=== PATIENT | female | born 1955 | race Caucasian/White ===

== ENCOUNTER 2023-04-30 08:45 | Outpatient (OUT) | payer OTHER, SELFPAY ==
[2023-04-30 08:57] LABS: Basophils Percent Auto 0.5 % (0.2-2.0); Eosinophils Absolute Auto 0.3 10^3/uL (0.0-0.7); Eosinophils Percent Auto 3.8 % (0.9-7.0); Hematocrit 44.8 % (36.0-48.0); Hemoglobin 14.3 g/dL (12.0-16.0); Immature Granulocytes Abs Auto 0.02 10^3/uL (0.00-0.03); Immature Granulocytes Pct Auto 0.2 % (0.0-0.5); Lymphocytes Absolute Auto 2.2 10^3/uL (1.2-3.8); Lymphocytes Percent Auto 27.2 % (20.5-60.0); Mean Corpuscular HGB Conc 31.9 g/dL (29.9-35.2); Mean Platelet Volume 10.4 fL (9.5-13.5); Monocytes Absolute Auto 0.6 10^3/uL (0.3-0.8); Monocytes Percent Auto 7.8 % (1.7-12.0); Neutrophils Absolute Auto 4.9 10^3/uL (1.4-6.5); Neutrophils Percent Auto 60.5 % (43.0-75.0); Platelet Count 286 10^3/uL (150-450); Red Blood Count 4.62 10^6/uL (4.20-5.40); Red Cell Distribution Width 13.8 % (11.0-15.0); White Blood Count 8.1 10^3/uL (4.0-11.0)
--- NOTE | 2023-04-30 08:57 | MM_ITS ---
Patient Name: MIKE RIVERA MR#: [id number] : 1955 Exam Date: 04/30/2023 Ordering Doctor: DR Rob Jiménez D.O. RADIOLOGY REPORT PROCEDURE: MM TOMOSYNTHESIS SCREENING BI COMPARISON: MG MAMM SCREEN 3D PADMINI CAD, 09/05/2020. MG MAMM SCREEN 3D PADMINI CAD, 02/28/2022. INDICATIONS: Screening Calculator Name NCI Breast Cancer Risk Assessment Tool 5 Year Breast Cancer Risk 1.50% Lifetime Breast Cancer Risk 5.40% Personal Breast Cancer No Personal Ovarian Cancer No Treatments None Family Cancers Aunt-maternal with breast cancer at age 60; Aunt-maternal with breast cancer at age 60; Aunt-maternal with breast cancer at age 60; Grandmother-maternal with ovarian cancer at age 58; Grandfather-paternal with lung cancer at age 70. LOCATION: [facility] BREAST COMPOSITION: Heterogeneously dense,which may obscure small masses. FINDINGS: DIAGNOSTIC CATEGORY 1--NEGATIVE. NO CHANGE FROM COMPARISON ASSESSMENT. RIGHT BREAST: No significant suspicious finding. LEFT BREAST: No significant suspicious finding. RECOMMENDATIONS: ROUTINE MAMMOGRAM AND CLINICAL EVALUATION IN 12 MONTHS. PLEASE NOTE: A NORMAL MAMMOGRAM DOES NOT EXCLUDE THE POSSIBILITY OF BREAST CANCER. A CLINICALLY SUSPICIOUS PALPABLE LUMP SHOULD BE BIOPSIED. Dictated by: Merrick Tobar MD on 04/30/2023 at 09:57 Approved by: Merrick Tobar MD on 04/30/2023 at 10:14
--- NOTE | 2023-04-30 08:58 | XR_ITS ---
The [address] [address] Patient Name: MIKE RIVERA MRN: [id number] date: 1955 Sex: F Assigned Patient Location: LAB Current Patient Location: LAB Accession/Order Number: [id number] Exam Date: 04/30/2023 09:12 Report Date: 04/30/2023 09:43 At the request of: CHANDA SEGUNDO Procedure: XR chest 2V EXAM: XR chest 2V HISTORY: Chronic Cough R05.3 COMPARISON: None. TECHNIQUE: PA and lateral views of the chest. FINDINGS: The cardiomediastinal silhouette is normal. No focal consolidation is identified. There is no pneumothorax. No pleural effusion is noted. The osseous structures are intact. XR/XR chest 2V IMPRESSION: No acute cardiopulmonary process. Suggestion of COPD. Electronically authenticated by: DELFINA RILEY Date: 04/30/2023 09:43
[2023-04-30 09:28] LABS: Alanine Aminotransferase 20 U/L (14-59); Albumin Level 3.9 g/dL (3.4-5.0); Alkaline Phosphatase 63 U/L (46-116); Anion Gap 11.9; Aspartate Amino Transferase 15 U/L (15-37); BUN Creatinine Ratio 28.6; Bilirubin Total 0.4 mg/dL (0.2-1.0); Calcium 9.7 mg/dL (8.5-10.1); Carbon Dioxide 29.4 mmol/L (21.0-32.0); Chloride 104 mmol/L (98-107); Estimated GFR (African America >60 (>=60); Estimated GFR (Non-African Ame >60 (>=60); Globulin 3.8 g/dL; Glucose 109 mg/dL (74-106); Potassium 4.3 mmol/L (3.5-5.1); Sodium 141 mmol/L (136-145); Total Protein 7.7 g/dL (6.4-8.2)
--- OUTSIDE RECORDS SUMMARY | 2023-05-13 02:46 | XMS_ITS | CCD ---
Author Name Unknown Address [address] [place] [address] Organization [facility] Care Team Providers Care Glass Bender Name Role Phone ROB JIMÉNEZ Primary Care Physician [phone] SABIHA ., KENDALL Attending Unavailable SABIHA ., KENDALL Consulting Unavailable SABIHA ., KENDALL Admitting Unavailable TINO, DR ARMAS Primary Care Unavailable NILL ., DR MAZA Admitting Unavailable NILL ., DR MAZA Attending Unavailable NILL ., DR MAZA Consulting Unavailable TINO, DR ARMAS Primary Care Unavailable KATHY, HARRY Consulting Unavailable KUCHIPUDI, MANUEL Consulting Unavailable TINO, DR ARMAS Admitting Unavailable BALL, DR ARMAS Attending Unavailable BALL, DR ARMAS Consulting Unavailable BALL, DR ARMAS Primary Care Unavailable BALL, DR ARMAS Attending Unavailable BALL, DR ARMAS Consulting Unavailable BALL, DR ARMAS Primary Care Unavailable BALL, DR ARMAS Admitting Unavailable WEST, DR DALJIT Wong Consulting Unavailable NILL ., DR MAZA Admitting Unavailable NILL ., DR MAZA Attending Unavailable NILL ., DR MAZA Consulting Unavailable BALL, DR ARMAS Primary Care Unavailable Ball, Rob Unavailable PedersenOrly Unavailable NILL, Link York Attending Unavailable NILL, Link York Attending Unavailable BALL, ROB Referring Unavailable NILL, Link York Attending Unavailable NANCE, Nasir York Attending Unavailable NANCE, Nasir York Attending Unavailable NANCE, Nasir York Attending Unavailable NANCE, Nasir York Attending Unavailable NANCE, Nasir York Attending Unavailable NANCE, Nasir York Attending Unavailable NANCE, Nasir York Admitting Unavailable Allergies Allergy Classification Reported Allergen(s) Allergy Type Date of Onset Reaction(s) Facility (9 sources) Cefaclor; Translations: [cefaclor] Drug Allergy Joint swelling (finding), Cutaneous eruption (morphologic abnormality) [facility] (16 sources) Erythromycin; Translations: [erythromycin] Drug Allergy Joint swelling (finding), Cutaneous eruption (morphologic abnormality) [facility] (13 sources) Penicillin; Translations: [penicillin] Drug Allergy Cutaneous eruption (morphologic abnormality) [facility] (9 sources) Sulfonamides (Antibiotic); Translations: [sulfa drugs] Drug allergy Nausea and vomiting (disorder) [facility] (14 sources) NITROFURANTOIN, MACROCRYSTALS / Nitrofurantoin, Monohydrate; Translations: [nitrofurantoin] Drug Allergy Eruption of skin (disorder) [facility] go[facility] (5 sources) Cefaclor Drug Allergy 10-17-19 15 Unknown [facility] (1 source) Erythromycin Drug Allergy 10-17-19 15 [facility] (1 source) Nitrofurantoin Drug Allergy 04-03-20 22 [facility] (1 source) Penicillins Drug allergy (disorder) 10-17-19 15 [facility] (1 source) Sulfonamides (Antibiotic) Drug allergy (disorder) [facility] (7 sources) Cephalexin Drug Allergy Unknown [facility] Other (7 sources) Substance with sulfonamide structure and antibacterial mechanism of action (substance) Drug allergy Unknown [facility] Other (4 sources) Substance with penicillin structure and antibacterial mechanism of action (substance) Drug allergy Unknown [facility] Other (4 sources) Ceclor *CEPHALOSPORINS* Propensity to adverse reactions 11-17-19 15 Unknown [facility] Other (1 source) patient allergy list reviewed by nurse or physicia Propensity to adverse reactions 06-30-19 18 Comment:Done [facility] Other Medications Current Medications Medication Drug Class(es) Dates Sig (Normalized) Sig (Original) 0.4 ML cyclosporine 0.5 MG/ML Ophthalmic Suspension [Restasis] (2 sources) Start: 07-28-2022 Restasis 0.05% Emulsion Refill(s) 0 Start Date: 07/28/22 Status: Ordered amLODIPine 2.5 mg oral tablet (4 sources) Dihydropyridine Calcium Channel Yosef Start: 03-27-2023 take 1 tablet by mouth every twenty-four hours amLODIPine Besylate 2.5 MG 1 tablet Orally Once a day Mar, Active calcium carbonate 1500 mg oral tablet (3 sources) Start: 04-28-2022 take 1 mg by mouth once daily calcium (as carbonate) 600 mg oral tablet mg tab(s), Oral, Daily, Refills(s) 0 Start Date: 04/28/22 Status: Ordered cycloSPORINE 0.5 mg/ml ophthalmic suspension (3 sources) Calcineurin Inhibitor Immunosuppressant take 1 drop(s) into the eye(s) twice daily Restasis 0.05 % 1 drop into affected eye Ophthalmic Twice a day Active doxycycline hyclate 100 mg oral capsule (1 source) Tetracycline-class Drug Start: 07-28-2022 End: 08-07-2022 take 1 capsule by mouth twice daily doxycycline hyclate 100 mg Cap 100 mg = 1 cap(s), Oral, BID, X 10 day(s), # 20 cap(s), Refills(s) 0, Pharmacy: [facility], 167, cm, 07/28/22 15:34:00 EST, Height/Length Dosing, 63, kg, 07/28/22 15:34:00 EST, Weight Dosing Start Date: 07/28/22 Stop Date: 08/07/22 Status: Ordered escitalopram 10 mg oral tablet (1 source) Serotonin Reuptake Inhibitor Start: 02-21-2022 take 1 tablet by mouth at bedtime escitalopram 10 mg Tab 10 mg = 1 tab(s), Oral, Bedtime, Refills(s) 0 Start Date: 02/21/22 Status: Ordered Estrace Vaginal Cream (2 sources) Start: 01-10-2019 Estrace Vaginal Cream See Instructions, 1 gram Vaginal MWF, Refills(s) 0 Start Date: 01/10/19 Status: Ordered estradiol 0.1 mg/ml vaginal cream (6 sources) Estrogen Start: 09-20-2021 Estrace 0.1 mg/g Cream 1 gm, Vaginal, As Directed, 42.5 gm, Refill(s) 1, 3 times a week for a month at bedtime, then 2 times a week for maintenance, [facility], 167.6, cm, 09/18/21 13:22:00 EDT, Height/Length Dosing, 62.5, kg, 09/18/21 13:22:00 EDT, Weight Dosing Start Date: 09/20/21 Status: Ordered Start: 09-20-2021 Estrace 0.1 mg /g Cream 1 gm, Vaginal, As Directed, 42.5 gm, Refill(s) 1, 3 times a week for a month at bedtime, then 2 times a week for maintenance, [facility], 167.6, cm, 09/18/21 13:22:00 EDT, Height/Length Dosing, 62.5, kg, 09/18/21 13:22:00 EDT, Weight Dosing Start Date: 09/20/21 Status: Ordered estrogens, conjugated (jail) 0.625 mg/ml vaginal cream (3 sources) Estrogen Premarin 0.625 M G/GM three times weekly Vaginal Active Premarin 0.625 M G/GM three times weekly Vaginal Active Hyoscyamine / Methenamine / Methylene blue / phenyl salicylate / Sodium Phosphate, Monobasic (3 sources) Oxidation-Reduction Agent Start: 01-10-2019 Urelle 1 tab(s), Oral, Refill(s) 0, prn Start Date: 01/10/19 Status: Ordered levothyroxine sodium 0.05 mg oral tablet (9 sources) l-Thyroxine Start: 08-21-2022 take 1 tablet by mouth once daily in the morning Levothyroxine Sodium 50 MCG 1 tablet in the morning on an empty stomach1 Orally Once a day Jul, Active Start: 08-21-2022 take 1 tablet by cedric th once daily in the morning Levothyroxine Sodium 50 MCG 1 tablet in the morning on an empty stomach1 Orally Once a day Jul, Active Start: 07-28-2022 levothyroxine 50 mcg (0.05 mg) Tab Refills(s) 0 Start Date: 07/28/22 Status: Ordered losartan potassium 25 mg oral tablet (3 sources) Angiotensin 2 Receptor Yosef Start: 10-22-2022 take 1 tablet by mouth every twenty-four hours Losartan Potassium 25 MG 1 tablet Orally Once a day for 30 days September, Active Vitamin D 1000 intl units (25 mcg) Tab (3 sources) Start: 04-28-2022 take 1 tablet by mouth once daily Vitamin D 1000 intl units (25 mcg) Tab mcg tab(s), Oral, Daily, Refills(s) 0 Start Date: 04/28/22 Status: Ordered Problems Active Problems Problem Classification Problem Date Documented Date Episodic/Chronic Anxiety disorders (20 sources) Anxiety; Translations: [Generalized anxiety disorder] 01-10-2019 Chronic Chronic obstructive pulmonary disease and bronchiectasis (5 sources) Mucopurulent chronic bronchitis; Translations: [Mucopurulent chronic bronchitis] Chronic Coma; stupor; and brain damage (1 source) Somnolence; Translations: [Somnolence] Episodic Diabetes mellitus without complication (9 sources) Impaired fasting glycemia; Translations: [Impaired fasting glucose] Episodic Endometriosis (8 sources) Endometriosis, unspecified; Translations: [Endometriosis] Chronic Essential hypertension (11 sources) Essential hypertension; Translations: [Essential (primary) hypertension] Chronic Genitourinary symptoms and ill-defined conditions (4 sources) Stress incontinence (female) (male); Translations: [Genuine stress incontinence] Onset: 04-28-2022 Chronic Genitourinary symptoms and ill-defined conditions (20 sources) Incomplete emptying of bladder; Translations: [Retention of urine] Onset: 05-25-1957 09-18-2021 Episodic Headache; including migraine (5 sources) Migraine with aura; Translations: [Migraine with aura, not intractable, without status migrainosus] Chronic Headache; including migraine (1 source) Headache; Translations: [Headache, unspecified] Episodic Inflammatory diseases of female pelvic organs (1 source) Female pelvic peritoneal adhesions; Translations: [Female pelvic peritoneal adhesions (postinfective)] Episodic Malaise and fatigue (15 sources) Malaise; Translations: [Other malaise] Onset: 11-16-2014 Episodic Mood disorders (2 sources) Depression; Translations: [Dysthymia] Onset: 05-25-1959 Chronic Nonmalignant breast conditions (1 source) Fibrocystic disease of breast; Translations: [Diffuse cystic mastopathy of unspecified breast] Chronic Nutritional deficiencies (8 sources) Vitamin D deficiency; Translations: [Vitamin D deficiency, unspecified] Chronic Other circulatory disease (12 sources) Elevated blood-pressure reading without diagnosis of hypertension; Translations: [Elevated blood-pressure reading, without diagnosis of hypertension] 02-21-2022 Episodic Other diseases of bladder and urethra (4 sources) Neurogenic dysfunction of the urinary bladder; Translations: [Neuromuscular dysfunction of bladder, unspecified] Onset: 09-18-2021 Chronic Other diseases of bladder and urethra (8 sources) Neurogenic bladder 09-18-2021 Chronic Other diseases of bladder and urethra (1 source) Neuromuscular dysfunction of bladder, unspecified; Translations: [NEUROMUSCULR DYSFNCTION BLADDER UNS] Onset: 04-23-2022 Chronic Other female genital disorders (1 source) Dyspareunia; Translations: [Dyspareunia] Onset: 03-28-2008 Chronic Other hereditary and degenerative nervous system conditions (1 source) Cerebellar ataxia; Translations: [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 Other non-epithelial cancer of skin (8 sources) Squamous cell carcinoma; Translations: [Squamous cell carcinoma of skin, unspecified] Episodic Other non-traumatic joint disorders (8 sources) Shoulder joint pain; Translations: [Pain in left shoulder] Episodic Other screening for suspected conditions (not mental disorders or infectious disease) (19 sources) Screening for malignant neoplasm of colon done; Translations: [Encounter for screening for malignant neoplasm of colon] Onset: 03-03-2022 Episodic Other upper respiratory disease (4 sources) Epistaxis; Translations: [EPISTAXIS] Onset: 09-28-2022 Episodic Other upper respiratory infections (1 source) Acute sinusitis; Translations: [Acute sinusitis, unspecified] Episodic Residual codes; unclassified (1 source) Tobacco user; Translations: [Tobacco use] Episodic Spondylosis; intervertebral disc disorders; other back problems (9 sources) Lumbar spondylosis; Translations: [Spondylosis without myelopathy or radiculopathy, lumbar region] Chronic Substance-related disorders (19 sources) Smoker; Translations: [Nicotine dependence, cigarettes, uncomplicated] Onset: 05-25-1957 09-18-2021 Chronic Comment on above: Added secondary to d ocumentation in Social History. 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; Translations: [Other specified hypothyroidism] Chronic Unclassified (4 sources) Adhesion of pelvis 02-21-2022 Unclassified (4 sources) Body mass index 20-24 - normal 03-04-2022 Unclassified (4 sources) Patient encounter status 03-04-2022 Unclassified (1 source) CONTACT W/AND (SUSP) EXPOS COVID-19; Translations: [CONTACT W/AND (SUSP) EXPOS COVID-19] Onset: 04-08-2022 Urinary tract infections (14 sources) Chronic cystitis; Translations: [Other chronic cystitis without hematuria] Onset: 09-18-2021 Chronic Urinary tract infections (20 sources) Postinfective urethral stricture of female; Translations: [Postinfective urethral stricture, not elsewhere classified, female] Onset: 09-18-2021 Episodic Past or Other Problems Problem Classification Problem Date Documented Da te Episodic/Chronic Abdominal pain (2 sources) Abdominal pain; Translations: [Unspecified abdominal pain] Onset: 12-21-2013 Episodic Acute bronchitis (1 source) Acute bronchitis; Translations: [Acute bronchitis, unspecified] Onset: 02-13-2015 Episodic Lymphadenitis (1 source) Lymphadenopathy; Translations: [Enlargement of lymph nodes] Onset: 11-16-2014 Episodic Other circulatory disease (1 source) Elevated blood-pressure reading, without diagnosis of hypertension; Translations: [ELEVATED BP READING W/O DX HTN] Onset: 04-23-2022 Episodic Other circulatory disease (1 source) Non-neoplastic nevus; Translations: [Nevus, non-neoplastic] Onset: 01-10-2014 Episodic Other gastrointestinal disorders (1 source) Constipation; Translations: [Constipation, unspecified] Onset: 12-21-2013 Resolved: 08-21-2020 Episodic Other skin disorders (1 source) Mass in head or neck; Translations: [Swelling, mass, or lump in head and neck] Onset: 12-06-2013 Episodic Other skin disorders (1 source) Localized swelling, mass and lump, trunk; Translations: [Localized swelling, mass and lump, trunk] Onset: 11-16-2014 Episodic Residual codes; unclassified (1 source) Acquired absence of other specified parts of digestive tract; Translations: [ACQ ABSENCE OTH PART DIGESTV TRACT] Onset: 04-23-2022 Episodic Residual codes; unclassified (1 source) Acquired absence of both cervix and uterus; Translations: [ACQUIRED ABSENCE BOTH CERVIX AND UTERUS] Onset: 04-23-2022 Episodic Residual codes; unclassified (1 source) Family history of malignant neoplasm of breast; Translations: [FAMILY HX MALIG NEOPLASM OF BREAST] Onset: 03-03-2022 Episodic Residual codes; unclassified (1 source) Family history of malignant neoplasm of ovary; Translations: [FAM HX MALIGNANT NEOPLASM OVARY] Onset: 03-03-2022 Episodic Residual codes; unclassified (1 source) Family history of malignant neoplasm of trachea, bronchus and lung; Translations: [FAM HX MALIG NEOPLSM TRACH BRON LNG] Onset: 03-03-2022 Episodic Spondylosis; intervertebral disc disorders; other back problems (1 source) Low back pain; Translations: [Low back pain, unspecified] Onset: 06-30-2017 Episodic Unclassified (1 source) Chronic cough R05.3 Results Test Name Value Interpretation Reference Range Facil ity Consent for Procedure/Surger yon 08-12-2022 Consent for Procedure/Surgery [id number]:127 Normal [facility] Ambulatory Visit Summaryon 0 08-11-2022 Ambulatory Visit Summary MIKE RIVERA :1955 Visit Date:08/11/2022 Ambulatory Visit Instructions Your Diagnosis Postinfective urethral stricture of female Chronic cystitis Neurogenic bladder Tests Performed Urnls Dip Stick Auto w/o Microscopy POC [id number] Your Care Team Attending Physician - Nasir NANCE MD Primary Care Physician - TINO MCGUIRE, ROB This Is Your Medications List estradiol topical (Estrace 0.1 mg/g Cream) Contact prescribing physician if questions or concerns calcium carbonate (calcium (as carbonate) 600 mg oral tablet) cholecalciferol (Vitamin D 1000 intl units (25 mcg) Tab) cycloSPORINE ophthalmic (Restasis 0.05% Emulsion) levothyroxine (levothyroxine 50 mcg (0.05 mg) Tab) Procedures Performed Dilation of urethra (08/11/2022), Dilation of urethra (02/03/2022), UD - Urethral dilatation (01/10/2019), Colonoscopy (2005), EGD - Esophagogastroduodenoscopy (2005), Urodynamics (08/21/2003), Appendectomy, Bilateral salpingo-oophorectomy, Caesarean section, section, Cholecystectomy, Colonoscopy abnormal, Cystoscopy, dilation of uretheral stricture, Laparoscopy, Lysis of adhesions, skin cancer removal, LISA - Total abdominal hysterectomy. Discharge Vitals Heart Rate (Peripheral) 82 Respiratory Rate 16 Blood Pressure 132/89 Height 167 cm Height 66 in Weight 138 kg Weight 303.6 lb BMI 49.48 What to do next Scheduled Follow-Up Appointments Thursday 3:15 PM EDT With: CORNELIO GATES, Nasir York Where: [facility] Patient Educationon 08-12-19 Patient Education Urology Urethral Dilation Urethral dilation is a procedure to stretch open (dilate) the urethra. The urethra is the tube that drains urine from the bladder out of the body. In women, the urethra opens above the vaginal opening. In men, the urethra opens at the tip of the penis. Urethral dilation is usually done to treat narrowing of the urethra (urethral stricture), which can make it difficult to pass urine. Urethral dilation widens the urethra so that you can pass urine normally. Urethral dilation is done through the urethral opening. There are no incisions made during the procedure. Tell a health care provider about: ? Any allergies you have. ? All medicines you are taking, including vitamins, herbs, eye drops, creams, and oymy-nks-sqvzcpk medicines. ? Any problems you or family members have had with anesthetic medicines. ? Any blood disorders you have. ? Any surgeries you have had. ? Any medical conditions you have. ? Whether you are or may be . What are the risks? Generally, this is a safe procedure. However, problems may occur, including: ? Bleeding. ? Infection. ? A return of urethral stricture, which requires repeating the dilation procedure. ? Damage to the urethra, which may require reconstructive surgery. ? Allergic reactions to medicines. What happens before the procedure? Medicines Ask your health care provider about: ? Changing or stopping your regular medicines. This is especially important if you are taking diabetes medicines or blood thinners. ? Taking medicines such as aspirin and ibuprofen. These medicines can thin your blood. Do not take these medicines unless your health care provider tells you to take them. ? Taking mzkv-gjc-jkawbvg medicines, vitamins, herbs, and supplements. General instructions ? Follow instructions from your health care provider about eating or drinking restrictions. ? Plan to have someone take you home from the hospital or clinic. ? If you will be going home right after the procedure, plan to have someone with you for 24 hours. ? Ask your health care provider what steps will be taken to help prevent infection. These may include: ? Washing skin with a germ-killing soap. ? Taking antibiotic medicine. What happens during the procedure? ? An IV may be inserted into one of your veins. ? You will be given one or more of the following medicines: ? A local anesthetic to numb your urethral opening. This will be applied as a gel that will also lubricate the urethral opening. ? A sedative to help you relax. ? A thin tube with a light and camera on the end (cystoscope) will be inserted into your urethra. ? Your urethra will be rinsed (irrigated) with a germ-free (sterile) water solution. ? Narrow parts of your urethra will be stretched open using a dilator tool. Your surgeon will start with a very thin dilator, then use wider dilators as needed. ? A thin tube with an inflatable balloon on the tip may be inserted into your urethra. The balloon may be inflated to help stretch your urethra open. ? Your urethra will be irrigated. The procedure may vary among health care providers and hospitals. What can I expect after the procedure? ? After the procedure, it is common to have: ? Burning pain when urinating. ? Blood in your urine. ? A need to urinate frequently. ? You will be asked to urinate before you leave the hospital or clinic. ? Your urine flow should improve within a few days. Follow these instructions at home: Medicines ? Take rwko-zcm-oyynaap and prescription medicines only as told by your health care provider. ? If you were prescribed an antibiotic medicine, take it as told by your health care provider. Do not stop taking the antibiotic even if you start to feel better. ? Ask your health care provider if the medicine prescribed to you: ? Requires you to avoid driving or using heavy machinery. ? Can cause constipation. You may need to take these actions to prevent or treat constipation: ? Take tbmx-txf-hkbhoqp or prescription medicines. ? Eat foods that are high in fiber, such as beans, whole grains, and fresh fruits and vegetables. ? Limit foods that are high in fat and processed sugars, such as fried or sweet foods. General instructions ? Do not drive for 24 hours if you were given a sedative during your procedure. ? If you were sent home with a small, lubricated tube (catheter) to help keep your urethra open, follow your health care provider's instructions about how and when to use it. ? Drink enough fluid to keep your urine pale yellow. ? Return to your normal activities as told by your health care provider. Ask your health care provider what activities are safe for you. ? Keep all follow-up visits as told by your health care provider. This is important. Contact a health care provider if: ? Your urine is cloudy and smells bad. ? You develop new bleeding when you urinate. ? You pa (more content not included)... [facility] Office/Clinic Noteon 08-11-2022 Urology Office/Clinic Note Chief Complaint urethral strictures HPI Staff Pt is here today for IO UD due to urethral stricture. UD was originally scheduled for 07/28/22, however at time of encounter, pt had urinary symptoms. C&S did come back + and was Tx'd with Keflex therapy. Additional DX: Chronic Cystitis, Nocturia, Gross Hematuria and Stress Incontinence. *Estrace Cream therapy. CIC 3-4x/day. History of Present Illness Tests reviewed: reviewed UA. I have reviewed the previous health record information and history for this patient from Dr. Nance. I have reviewed and verified the staff HPI to be accurate for this encounter. There have been no associated fever, chills, flank pain, or blood in the urine. Denies any urinary infections since last encounter. Review of Systems PHQ Score Initial Depression Screen Score: 0 ROS - Provider Constitutional: denies weight loss, denies hot flashes. Eyes: denies eye problems. Gastrointestinal: denies nausea, denies vomiting. Cardiovascular: denies chest pain or angina. Integumentary: no dryness Musculoskeletal: denies musculoskeletal symptoms. ENMT: denies otolaryngeal symptoms. Respiratory: no shortness of breath. Heme/Lymph: denies easy bleeding tendency, denies easy bruising tendency. Psychiatric: no confusion, no anxiety. Genitourinary: See HPI. Physical Exam Vitals & Measurements HR: 82(Peripheral) RR: 16 BP: 132/89 HT: 66 in HT: 167 cm WT: 138 kg WT: 303.6 lb BMI: 49.48 General Appearance: alert , no acute distress, well nourished, well developed female. Genitourinary: bladder nonpalpable, no flank pain. Assessment/Plan 1. 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 Pt had IO UD today without complications. Operative Information Anesthesia Type: Local Procedure: Local Urethral Dilation Complications: None Surgical risks, benefits, details of the procedure have been explained to the patient. Full informed consent has been obtained. Intraoperative Information Prepped: Patient is brought back to the endoscopy suite. Patient is placed in modified dorso/lithotomy position. Patient prepped in the usual fashion with Betadine solution. 2% Xylocaine Jelly is placed per Urethra. The Urethra is: Tight The Urethra was dilated to: 20-30 Green[place]ic with sounds. Specimens Removed: None- Postoperative Information Patient is discharged home. Follow up arranged. Follow up 3 mos for UD or sooner if needed. Pt understands and agrees with plan. 2. Chronic cystitis (N30.20: Other chronic cystitis without hematuria) UCx 07/28/22 - E. coli. Pt completed Doxycycline 100 mg BID x 10 days course. UA today shows trace-intact blood, neg for infection. Pt continues using Estradiol 2x/week. -cont Estradiol 3. Neurogenic bladder (N31.9: Neuromuscular dysfunction of bladder, unspecified) Pt does CIC 3-4x/day. Follow-up With When Contact Information CORNELIO GATES, Nasir York, URL [facility] [address], [place] [address]- Additional Instructions: 3 mos UD Patient Education Urethral Dilation Isabel Mane, personally scribed for Dr. Nance on 08/11/2022 12:43:16. . Documentation recorded by the scribeIsabel, accurately reflects the services(s) I performed and decisions made by me. Authenticated by Dr. Nance on 08/11/2022 12:46:39. Problem List/Past Medical History Ongoing Anxiety Blood pressure elevated without history of HTN BMI 22.0-22.9, adult Chronic cystitis CORTNEY (generalized anxiety disorder) Gross hematuria Incomplete bladder emptying Neurogenic bladder Nocturia Pelvic adhesions Postinfective urethral stricture of female Screening for malignant neoplasm of colon Smoker Stress incontinence Urinary retention Weak urinary stream Historical No qualifying data Procedure/Surgical History Dilation of urethra (08/11/2022), Dilation of urethra (02/03/2022), UD - Urethral dilatation (01/10/2019), Colonoscopy (2005), EGD - Esophagogastroduodenoscopy (2005), Urodynamics (08/21/2003), Appendectomy, Bilateral salpingo-oophorectomy, Caesarean section, section, Cholecystectomy, Colonoscopy abnormal, Cystoscopy, dilation of uretheral stricture, Laparoscopy, Lysis of adhesions, skin cancer removal, LISA - Total abdominal hysterectomy. Medications calcium (as carbonate) 600 mg oral tablet, Oral, Daily Estrace 0.1 mg/g Cream, 1 gm, Vaginal, As Directed, 1 refills levothyroxine 50 mcg (0.05 mg) Tab Restasis 0.05% Emulsion Vitamin D 1000 intl units (25 mcg) Tab, Oral, Daily Allergies Macrobid (Rash) cefaclor (Joint swelling, Rash) erythromycin (Joint swelling, Rash) penicillin (Rash) sulfa drugs (Nausea and vomiting) Social History Alcohol Current, Beer, Daily, 01/10/2019 Substance Abuse - Denies Substance Abuse, 03/04/2022 Tobacco 10 or more cigarett (more content not included)... Normal [facility] Comment on above: Result Comment: Elec tronically Signed By: Nasir NANCE MD\.br\Date and Time Signed: 08/11/22 12:46 EDT\.br\Electronically Co-Signed By: Isabel Greenberg\.br\Date and Time Co-Signed: 08/11/22 12:43 EDT Coding Summary.on 08-02-2022 Coding Summary. [id number] [file] [id number] (more content not included)... Normal [facility] C Urineon 07-30-2022 Bacteria identified Cx Nom (U) Microbiology PROCEDURE: Urine Culture [R1] SOURCE: U Random BODY SITE: COLLECTED DATE/TIME: 07/28/2022 15:38 EST RECEIVED DATE/TIME: 07/28/2022 17:53 EST START DATE/TIME: 07/28/2022 17:53 EST FREE TEXT SOURCE: CORNELIO GATES, Nasir NANCE MD, Nasir York FINAL REPORTS Final Report [] Verified Date/Time: 07/30/2022 09:58 EST >100,000 cfu/ml Escherichia coli <10,000 cfu/ml Mixed skin contaminants SUSCEPTIBILITY RESULTS LEGEND: S=Susceptible, N/R=Not Reported, Blank=Data not available, or drug not advisable or tested, I=Intermediate, ESBL=Extended spectrum beta-lactamase, R=Resistant, TFG=Thymidine-dependent strain, CAROLYN=Beta- lactamase positive, JUAN JOSÉ=mcg/m;(mg/L), S*=Predicted susceptible interp, R*=Predicted resistant interp EC Antibiotic JUAN JOSÉ Dilutn JUAN JOSÉ Interp Amikacin <=16 S Ampicillin <=8 S Ampicillin/ <=8/4 S Sulbactam Aztreonam <=4 S Cefazolin <=2 S Cefepime <=2 S Cefoxitin <=8 S Ceftazidime <=1 S Ceftazidime/ <=8 S Avibactam Ceftriaxone <=1 S Ciprofloxacin <=1 S Ertapenem <=0.5 S Gentamicin <=4 S Levofloxacin <=2 S Meropenem <=1 S Nitrofurantoin <=32 S Piperacillin/ <=16 S Tazobactam Tetracycline <=4 S Tigecycline <=2 S Tobramycin <=4 S Trimethoprim/ <=2/38 S Sulfa Performing Locations R1: This test was performed at: [facility], [address] [place] [address], [id number] , [place], Normal [facility] Comment on above: Performed By: #### 2 [id number] ####[facility] [address] [place] [address] Ambulatory Visit Summaryon 0 07-28-2022 Ambulatory Visit Summary MIKE RIVERA :1955 Visit Date:07/28/2022 Ambulatory Visit Instructions Your Diagnosis Postinfective urethral stricture of female Chronic cystitis Neurogenic bladder Tests Performed Urnls Dip Stick Auto w/o Microscopy POC 94304 Your Care Team Attending Physician - Nasir NANCE MD Primary Care Physician - ROB JIMÉNEZ DO This Is Your Medications List doxycycline (doxycycline hyclate 100 mg Cap) estradiol topical (Estrace 0.1 mg/g Cream) Contact prescribing physician if questions or concerns calcium carbonate (calcium (as carbonate) 600 mg oral tablet) cholecalciferol (Vitamin D 1000 intl units (25 mcg) Tab) cycloSPORINE ophthalmic (Restasis 0.05% Emulsion) levothyroxine (levothyroxine 50 mcg (0.05 mg) Tab) Procedures Performed Dilation of urethra (02/03/2022), UD - Urethral dilatation (01/10/2019), Colonoscopy (2005), EGD - Esophagogastroduodenoscopy (2005), Urodynamics (08/21/2003), Appendectomy, Bilateral salpingo-oophorectomy, Caesarean section, section, Cholecystectomy, Colonoscopy abnormal, Cystoscopy, dilation of uretheral stricture, Laparoscopy, Lysis of adhesions, skin cancer removal, LISA - Total abdominal hysterectomy. Discharge Vitals Height 167 cm Height 66 in Weight 63 kg Weight 138.6 lb BMI 22.59 What to do next Scheduled Follow-Up Appointments Thursday 11:45 AM EDT With: CORNELIO GATES, Nasir York Where: [facility] Leonora Townsend [facility] Patient Educationon 07-29-19 23 Patient Education Urology Urethral Dilation Urethral dilation is a procedure to stretch open (dilate) the urethra. The urethra is the tube that drains urine from the bladder out of the body. In women, the urethra opens above the vaginal opening. In men, the urethra opens at the tip of the penis. Urethral dilation is usually done to treat narrowing of the urethra (urethral stricture), which can make it difficult to pass urine. Urethral dilation widens the urethra so that you can pass urine normally. Urethral dilation is done through the urethral opening. There are no incisions made during the procedure. Tell a health care provider about: ? Any allergies you have. ? All medicines you are taking, including vitamins, herbs, eye drops, creams, and cvwi-crv-zizzwbm medicines. ? Any problems you or family members have had with anesthetic medicines. ? Any blood disorders you have. ? Any surgeries you have had. ? Any medical conditions you have. ? Whether you are or may be . What are the risks? Generally, this is a safe procedure. However, problems may occur, including: ? Bleeding. ? Infection. ? A return of urethral stricture, which requires repeating the dilation procedure. ? Damage to the urethra, which may require reconstructive surgery. ? Allergic reactions to medicines. What happens before the procedure? Medicines Ask your health care provider about: ? Changing or stopping your regular medicines. This is especially important if you are taking diabetes medicines or blood thinners. ? Taking medicines such as aspirin and ibuprofen. These medicines can thin your blood. Do not take these medicines unless your health care provider tells you to take them. ? Taking xaeo-eny-phcjzpa medicines, vitamins, herbs, and supplements. General instructions ? Follow instructions from your health care provider about eating or drinking restrictions. ? Plan to have someone take you home from the hospital or clinic. ? If you will be going home right after the procedure, plan to have someone with you for 24 hours. ? Ask your health care provider what steps will be taken to help prevent infection. These may include: ? Washing skin with a germ-killing soap. ? Taking antibiotic medicine. What happens during the procedure? ? An IV may be inserted into one of your veins. ? You will be given one or more of the following medicines: ? A local anesthetic to numb your urethral opening. This will be applied as a gel that will also lubricate the urethral opening. ? A sedative to help you relax. ? A thin tube with a light and camera on the end (cystoscope) will be inserted into your urethra. ? Your urethra will be rinsed (irrigated) with a germ-free (sterile) water solution. ? Narrow parts of your urethra will be stretched open using a dilator tool. Your surgeon will start with a very thin dilator, then use wider dilators as needed. ? A thin tube with an inflatable balloon on the tip may be inserted into your urethra. The balloon may be inflated to help stretch your urethra open. ? Your urethra will be irrigated. The procedure may vary among health care providers and hospitals. What can I expect after the procedure? ? After the procedure, it is common to have: ? Burning pain when urinating. ? Blood in your urine. ? A need to urinate frequently. ? You will be asked to urinate before you leave the hospital or clinic. ? Your urine flow should improve within a few days. Follow these instructions at home: Medicines ? Take vxaf-fza-vsnjpzz and prescription medicines only as told by your health care provider. ? If you were prescribed an antibiotic medicine, take it as told by your health care provider. Do not stop taking the antibiotic even if you start to feel better. ? Ask your health care provider if the medicine prescribed to you: ? Requires you to avoid driving or using heavy machinery. ? Can cause constipation. You may need to take these actions to prevent or treat constipation: ? Take voku-npb-haipgmn or prescription medicines. ? Eat foods that are high in fiber, such as beans, whole grains, and fresh fruits and vegetables. ? Limit foods that are high in fat and processed sugars, such as fried or sweet foods. General instructions ? Do not drive for 24 hours if you were given a sedative during your procedure. ? If you were sent home with a small, lubricated tube (catheter) to help keep your urethra open, follow your health care provider's instructions about how and when to use it. ? Drink enough fluid to keep your urine pale yellow. ? Return to your normal activities as told by your health care provider. Ask your health care provider what activities are safe for you. ? Keep all follow-up visits as told by your health care provider. This is important. Contact a health care provider if: ? Your urine is cloudy and smells bad. ? You develop new bleeding when you urinate. ? You pa (more content not included)... Normal [facility] Urology Office/Clinic Noteon 07-28-2022 Urology Office/Clinic Note Chief Complaint 3m UD HPI Staff Pt is here today for 3m UD for Tx of Urethral Stricture. Additional DX: Chronic Cystitis, Nocturia, Gross Hematuria and Stress Incontinence. *Estrace Cream therapy. CIC 3-4x/day. Pt thinks she is infected. Increased frequency, urgency, odor and burning for the past few weeks. History of Present Illness Tests reviewed: reviewed UA. I have reviewed the previous health record information and history for this patient from Dr. Nance. I have reviewed and verified the staff HPI to be accurate for this encounter. There have been no associated fever, chills, flank pain, or blood in the urine. Denies any urinary infections since last encounter. Review of Systems PHQ Score Initial Depression Screen Score: 0 ROS - Provider Constitutional: denies weight loss, denies hot flashes. Eyes: denies eye problems. Gastrointestinal: denies nausea, denies vomiting. Cardiovascular: denies chest pain or angina. Integumentary: no dryness Musculoskeletal: denies musculoskeletal symptoms. ENMT: denies otolaryngeal symptoms. Respiratory: no shortness of breath. Heme/Lymph: denies easy bleeding tendency, denies easy bruising tendency. Psychiatric: no confusion, no anxiety. Genitourinary: See HPI. Physical Exam Vitals & Measurements HT: 66 in HT: 167 cm WT: 63 kg WT: 138.6 lb BMI: 22.59 General Appearance: alert , no acute distress, well nourished, well developed female. Genitourinary: bladder nonpalpable, no flank pain. Assessment/Plan 1. Postinfective urethral stricture of female (N35.12: Postinfective urethral stricture, not elsewhere classified, female) Last UD done 04/28/22: Tight urethra, dilated 20-30 Fr. UA today shows + nitrites and small leuks. Pt is symptomatic (increased frequency, urgency, odor, and burning for the past few weeks), will not proceed with UD today. Follow up 2 weeks for UD or sooner if needed. Pt understands and agrees with plan. 2. Chronic cystitis (N30.20: Other chronic cystitis without hematuria) Pt continues using Estradiol 2x/week. UA today shows + nitrites and small leuks. Pt is symptomatic (increased frequency, urgency, odor, and burning for the past few weeks), will not proceed with UD today. Pt has many allergies, to try Doxycycline 100 mg BID x 10 days. Rx sent to [facility]. -will send urine for cx -cont Estradiol 3. Neurogenic bladder (N31.9: Neuromuscular dysfunction of bladder, unspecified) Pt does CIC 3-4x/day. Follow-up With When Contact Information CORNELIO GATES, Nasir York, URL [facility] [address], [place] [address]- Additional Instructions: 2 weeks for UD Patient Education Urethral Dilation I, Isabel Greenberg, personally scribed for Dr. Nance on 07/28/2022 15:51:53. . Documentation recorded by the scribe, Isabel Greenberg, accurately reflects the services(s) I performed and decisions made by me. Authenticated by Dr. Nance on 07/28/2022 15:54:43. Problem List/Past Medical History Ongoing Anxiety Blood pressure elevated without history of HTN BMI 22.0-22.9, adult Chronic cystitis CORTNEY (generalized anxiety disorder) Gross hematuria Incomplete bladder emptying Neurogenic bladder Nocturia Pelvic adhesions Postinfective urethral stricture of female Screening for malignant neoplasm of colon Smoker Stress incontinence Urinary retention Weak urinary stream Historical No qualifying data Procedure/Surgical History Dilation of urethra (02/03/2022), UD - Urethral dilatation (01/10/2019), Colonoscopy (2005), EGD - Esophagogastroduodenoscopy (2005), Urodynamics (08/21/2003), Appendectomy, Bilateral salpingo-oophorectomy, Caesarean section, section, Cholecystectomy, Colonoscopy abnormal, Cystoscopy, dilation of uretheral stricture, Laparoscopy, Lysis of adhesions, skin cancer removal, LISA - Total abdominal hysterectomy. Medications calcium (as carbonate) 600 mg oral tablet, Oral, Daily Estrace 0.1 mg/g Cream, 1 gm, Vaginal, As Directed, 1 refills levothyroxine 50 mcg (0.05 mg) Tab Restasis 0.05% Emulsion Vitamin D 1000 intl units (25 mcg) Tab, Oral, Daily Allergies Macrobid (Rash) cefaclor (Joint swelling, Rash) erythromycin (Joint swelling, Rash) penicillin (Rash) sulfa drugs (Nausea and vomiting) Social History Alcohol Current, Beer, Daily, 01/10/2019 Substance Abuse - Denies Substance Abuse, 03/04/2022 Tobacco 10 or more cigarettes (1/2 pack or more)/day in last 30 days, Smoker, current status unknown Tobacco Use:. Never Smokeless Tobacco Use:. Cigarettes, 0.75 per day. Started age 18.0 Years. Yes, 07/28/2022 Family History Acute myocardial infarction: Father. Diabetes mellitus type 2: Mother. Hyperlipidemia: Sister and Brother. Hypertension: Mother, Father, Sister and Brother. Immunizations Vaccine Date Status Comments SARS-CoV-2 (COVID-19) Ad26 vaccine 05/13/2021 Recorded 2022-07-28: [id number] (more content not included)... [facility] Comment on above: Result Comment: Elec tronically Signed By: Nasir NANCE MD R\.br\Date and Time Signed: 07/28/22 15:54 EST\.br\Electronically Co-Signed By: Isabel Greenberg\.br\Date and Time Co-Signed: 07/28/22 15:52 EST T3, TOTAL (TRIIODOTHYRONINE) on 05-23-2022 T3, TOTAL 85 ng/dL Normal 71-180 [facility] Comment on above: Performed By: #### T 3TOTAL #### [facility] [address] [address] [address] Ivana Gotti FREE T4on 05-22-2022 Free T4 [Mass/Vol] 0.69 ng/dL Critically low 0.76-1.46 Th e [facility] Comment on above: Performed By: #### F T4 #### [facility] [id number] Ivana Gotti TSHon 12-29-2022 TSH 4.342 uIU/mL Critically high 0.358-3.740 [facility] Comment on above: Performed By: #### T #### [facility] [address] [address] [address] Ivana Gotti Consent for Procedure/Surger yon 04-29-2022 Consent for Procedure/Surgery [id number] Normal [facility] Ambulatory Visit Summaryon 1 06-29-2021 Ambulatory Visit Summary MIKE RIVERA :1955 Visit Date:04/28/2022 Ambulatory Visit Instructions Your Diagnosis Postinfective urethral stricture of female Chronic cystitis Nocturia Stress incontinence Gross hematuria Tests Performed Urnls Dip Stick Auto w/o Microscopy POC 98000 Your Care Team Attending Physician - Nasir NANCE MD Primary Care Physician - ROB JIMÉNEZ DO This Is Your Medications List estradiol topical (Estrace 0.1 mg/g Cream) Contact prescribing physician if questions or concerns calcium carbonate (calcium (as carbonate) 600 mg oral tablet) cholecalciferol (Vitamin D 1000 intl units (25 mcg) Tab) Procedures Performed Dilation of urethra (02/03/2022), UD - Urethral dilatation (01/10/2019), Colonoscopy (2005), EGD - Esophagogastroduodenoscopy (2005), Urodynamics (08/21/2003), Appendectomy, Bilateral salpingo-oophorectomy, Caesarean section, section, Cholecystectomy, Colonoscopy abnormal, Cystoscopy, dilation of uretheral stricture, Laparoscopy, Lysis of adhesions, skin cancer removal, LISA - Total abdominal hysterectomy. Discharge Vitals Heart Rate (Peripheral) 70 Respiratory Rate 16 Blood Pressure 127/82 Height 167.6 cm Height 66 in Weight 63.2 kg Weight 139.04 lb BMI 22.5 What to do next Scheduled Follow-Up Appointments Thursday 3:15 PM EST With: Nasir NANCE MD Where: [facility] Normal [facility] Patient Educationon 04-28-20 Patient Education Urology Urethral Dilation Urethral dilation is a procedure to stretch open (dilate) the urethra. The urethra is the tube that drains urine from the bladder out of the body. In women, the urethra opens above the vaginal opening. In men, the urethra opens at the tip of the penis. Urethral dilation is usually done to treat narrowing of the urethra (urethral stricture), which can make it difficult to pass urine. Urethral dilation widens the urethra so that you can pass urine normally. Urethral dilation is done through the urethral opening. There are no incisions made during the procedure. Tell a health care provider about: ? Any allergies you have. ? All medicines you are taking, including vitamins, herbs, eye drops, creams, and viiq-tks-dahdluw medicines. ? Any problems you or family members have had with anesthetic medicines. ? Any blood disorders you have. ? Any surgeries you have had. ? Any medical conditions you have. ? Whether you are or may be . What are the risks? Generally, this is a safe procedure. However, problems may occur, including: ? Bleeding. ? Infection. ? A return of urethral stricture, which requires repeating the dilation procedure. ? Damage to the urethra, which may require reconstructive surgery. ? Allergic reactions to medicines. What happens before the procedure? Medicines Ask your health care provider about: ? Changing or stopping your regular medicines. This is especially important if you are taking diabetes medicines or blood thinners. ? Taking medicines such as aspirin and ibuprofen. These medicines can thin your blood. Do not take these medicines unless your health care provider tells you to take them. ? Taking koyi-suj-ribbemf medicines, vitamins, herbs, and supplements. General instructions ? Follow instructions from your health care provider about eating or drinking restrictions. ? Plan to have someone take you home from the hospital or clinic. ? If you will be going home right after the procedure, plan to have someone with you for 24 hours. ? Ask your health care provider what steps will be taken to help prevent infection. These may include: ? Washing skin with a germ-killing soap. ? Taking antibiotic medicine. What happens during the procedure? ? An IV may be inserted into one of your veins. ? You will be given one or more of the following medicines: ? A local anesthetic to numb your urethral opening. This will be applied as a gel that will also lubricate the urethral opening. ? A sedative to help you relax. ? A thin tube with a light and camera on the end (cystoscope) will be inserted into your urethra. ? Your urethra will be rinsed (irrigated) with a germ-free (sterile) water solution. ? Narrow parts of your urethra will be stretched open using a dilator tool. Your surgeon will start with a very thin dilator, then use wider dilators as needed. ? A thin tube with an inflatable balloon on the tip may be inserted into your urethra. The balloon may be inflated to help stretch your urethra open. ? Your urethra will be irrigated. The procedure may vary among health care providers and hospitals. What can I expect after the procedure? ? After the procedure, it is common to have: ? Burning pain when urinating. ? Blood in your urine. ? A need to urinate frequently. ? You will be asked to urinate before you leave the hospital or clinic. ? Your urine flow should improve within a few days. Follow these instructions at home: Medicines ? Take riju-bjv-kytfvda and prescription medicines only as told by your health care provider. ? If you were prescribed an antibiotic medicine, take it as told by your health care provider. Do not stop taking the antibiotic even if you start to feel better. ? Ask your health care provider if the medicine prescribed to you: ? Requires you to avoid driving or using heavy machinery. ? Can cause constipation. You may need to take these actions to prevent or treat constipation: ? Take lavg-dwk-eskrsbe or prescription medicines. ? Eat foods that are high in fiber, such as beans, whole grains, and fresh fruits and vegetables. ? Limit foods that are high in fat and processed sugars, such as fried or sweet foods. General instructions ? Do not drive for 24 hours if you were given a sedative during your procedure. ? If you were sent home with a small, lubricated tube (catheter) to help keep your urethra open, follow your health care provider's instructions about how and when to use it. ? Drink enough fluid to keep your urine pale yellow. ? Return to your normal activities as told by your health care provider. Ask your health care provider what activities are safe for you. ? Keep all follow-up visits as told by your health care provider. This is important. Contact a health care provider if: ? Your urine is cloudy and smells bad. ? You develop new bleeding when you urinate. ? You pa (more content not included)... Normal [facility] Urology Office/Clinic Noteon 12-2022 Urology Office/Clinic Note Chief Complaint urethral stricture HPI Staff Pt is here for urethral dilation. Previous dx of postinfective urethral stricture and chronic cystitis. Pt does CIC 3-4 daily. Pt continues using the Estrace cream 1gram 3x a week. Dysuria: a little but states it is not severe Incomplete bladder emptying: yes Hematuria: once in a while Frequency: every couple of hours Urgency: no Nocturia: 2-3x Stream: moderate to weak Leaking: no Post void dripping: no Wearing pads/ Depends: no Urge incontinence: no Stress incontinence: yes recently started with coughing and sneezing Incontinence without Sensory Awareness: no Abdominal pain: discomfort she states she also has IBS Flank pain: no Sexual complaints: no History of Present Illness Tests reviewed: reviewed UA I have reviewed the previous health record information and history for this patient from Dr. Nance. I have reviewed and verified the staff HPI to be accurate for this encounter. There have been no associated fever, chills, flank pain, or blood in the urine. Denies any urinary infections since last encounter. Review of Systems PHQ Score Initial Depression Screen Score: 0 ROS - Provider Constitutional: denies weight loss, denies hot flashes. Eyes: denies eye problems. Gastrointestinal: denies nausea, denies vomiting. Cardiovascular: denies chest pain or angina. Integumentary: no dryness Musculoskeletal: denies musculoskeletal symptoms. ENMT: denies otolaryngeal symptoms. Respiratory: no shortness of breath. Heme/Lymph: denies easy bleeding tendency, denies easy bruising tendency. Psychiatric: no confusion, no anxiety. Genitourinary: denies vaginal discharge, denies incontinence, denies dysuria, denies hematuria, denies urinary frequency, denies amenorrhea, denies menorrhagia, denies abnormal bleeding, denies pelvic pain, denies genital sores, and denies decreased libido. Physical Exam Vitals & Measurements HR: 70(Peripheral) RR: 16 BP: 127/82 HT: 66 in HT: 167.6 cm WT: 63.2 kg WT: 139.04 lb BMI: 22.5 General Appearance: alert , no acute distress, well nourished, well developed female. Genitourinary: bladder nonpalpable, no flank pain. Procedure Operative Information Anesthesia Type: Local Procedure: Local Urethral Dilation Complications: None Surgical risks, benefits, details of the procedure have been explained to the patient. Full informed consent has been obtained. Intraoperative Information Prepped: Patient is brought back to the endoscopy suite. Patient is placed in modified dorso/lithotomy position. Patient prepped in the usual fashion with Betadine solution. 2% Xylocaine Jelly is placed per Urethra. The Urethra is: Tight The Urethra was dilated to: 20-30 _ Green[place]ic with sounds. Specimens Removed: None Postoperative Information Patient is discharged home. Follow up arranged. Assessment/Plan 1. Postinfective urethral stricture of female (N35.12: Postinfective urethral stricture, not elsewhere classified, female) Pt has moderate to weak stream, feeling of incomplete bladder emptying. Pt had IO UD done today without complications. Previous UD done 02/03/22 IO. Pt will return in 3 mos for UD. 2. Chronic cystitis (N30.20: Other chronic cystitis without hematuria) UA today shows positive nitrites and trace leuks, pt does CIC 3-4x daily. Pt continues using the Estrace cream 1gm 3x a week. Pt reports slight dysuria, abdominal pain (but she also has IBS). nothing bothersome or abnormal for her. she will call if her sx's worsen. 3. Nocturia (R35.1: Nocturia) 2-3x/night. Will continue to monitor sxs. 4. Stress incontinence (N39.3: Stress incontinence (female) (male)) Recently started with coughing and sneezing. Will continue to monitor sxs. 5. Gross hematuria (R31.0: Gross hematuria) Pt reports she sees gross blood once in a while. Follow-up With When Contact Information CORNELIO GATES, Nasir [place], [facility] [address] [place] [address]- Additional Instructions: f/u 3 mos for UD Patient Education Urethral Dilation I, Isabel Greenberg, personally scribed for Dr. Nance on 04/28/2022 16:55:59. . Documentation recorded by the scribe, Isabel Greenberg, accurately reflects the services(s) I performed and decisions made by me. Authenticated by Dr. Nance on 04/28/2022 16:58:09. Problem List/Past Medical History Ongoing Anxiety Blood pressure elevated without history of HTN BMI 22.0-22.9, adult Chronic cystitis CORTNEY (generalized anxiety disorder) Gross hematuria Incomplete bladder emptying Neurogenic bladder Nocturia Pelvic adhesions Postinfective urethral stricture of female Screening for malignant neoplasm of colon Smoker Stress incontinence Urinary retention Weak urinary stream Historical No qualifying data Procedure/Surgical History Dilation of urethra (02/03/2022), UD - Urethral dilatation (01/10 (more content not included)... Normal [facility] Comment on above: Result Comment: Elec tronically Signed By: Nasir NANCE MD\.br\Date and Time Signed: 04/28/22 16:58 EST\.br\Electronically Co-Signed By: Isabel Greenberg\.br\Date and Time Co-Signed: 04/28/22 16:56 EST Outside Colonoscopyon 2021 Outside Colonoscopy [id number]:127 [facility] Reminderson 04-18-2022 Reminders - From: Clara Leija LPN To: N - Clinical; Sent: 04/18/2022 14:59:01 EST Show up: 03/09/2032 07:00:00 EDT Subject: colonoscopy recall Due Date/Time: 04/09/2032 07:00:00 EST Reminder/Recall Patient is due for screening colonoscopy 04/09/2032. Normal [facility] Outside Colonoscopyon 2021 Outside Colonoscopy [id number]:127 Normal [facility] Lab Reportson 04-07-2022 Lab Reports [id number] D:127 Normal [facility] Covid-19 PCR (CVDTB)on 03-25 SARS-CoV-2 (COVID-19) RNA ALICIA+probe Ql (Unsp spec) Not detected Normal NOT DETECTED [facility] Comment on above: Result Comment: This test is not yet approved or cleared by the [place] FDA. When there are no FDA-approved or cleared tests available, and other criteria are met, FDA can make tests available under an emergency access mechanism called an Emergency Use Authorization (EUA). The EUA for this test is supported by the [place] of Health and Human Service's (HHS's) declaration that circumstances exist to justify the emergency use of in vitro diagnostics for the detection and/or diagnosis of the virus that causes COVID-19. This EUA will remain in effect (meaning this test can be used) for the duration of the COVID-19 declaration justifying emergency of IVDs, unless it is terminated or revoked by FDA (after which the test may no longer be used). When diagnostic testing is negative, the possibility of a false negative should be considered in the context of a patient's recent exposures and the presence of clinical signs and symptoms consistent with SARS-CoV-2. Performed By: #### C [facility] #### [facility] [address] [place] [address] Dr. Ivana Gotti Consent for Procedure/Surger yon 03-06-2022 Consent for Procedure/Surgery [id number]:127 Normal [facility] Ambulatory Visit Summaryon 1 Ambulatory Visit Summary MIKE RIVERA :1955 Visit Date:03/04/2022 Ambulatory Visit Instructions Your Care Team Attending Physician - Link CALHOUN MD Primary Care Physician - ROB JIMÉNEZ DO This Is Your Medications List Contact prescribing physician if questions or concerns escitalopram (escitalopram 10 mg Tab) estradiol topical (Estrace 0.1 mg/g Cream) Procedures Performed Dilation of urethra (02/03/2022), UD - Urethral dilatation (01/10/2019), Colonoscopy (2005), EGD - Esophagogastroduodenoscopy (2005), Urodynamics (08/21/2003), Appendectomy, Bilateral salpingo-oophorectomy, Caesarean section, section, Cholecystectomy, Cystoscopy, dilation of uretheral stricture, Laparoscopy, Lysis of adhesions, skin cancer removal, LISA - Total abdominal hysterectomy. Discharge Vitals Heart Rate (Peripheral) 72 Respiratory Rate 16 Blood Pressure 136/84 Height 167.6 cm Height 66 in Weight 63.5 kg Weight 139.7 lb BMI 22.61 What to do next Scheduled Follow-Up Appointments Thursday 3:30 PM EST With: CORNELIO GATES, Nasir [place] Where: [facility] CBC AUTO DIFFon 02-28-2022 BASO # 0.1 103/ul Normal 0.0-0.1 [facility] Comment on above: Performed By: #### C BC #### [facility] [address] [place] [address] Dr. Ivana Gotti Basophils/100 WBC (Bld) 0.7 % Normal 0.2-2.0 [facility] Comment on above: Performed By: #### C BC #### [facility] [address] [place] [address] Dr. Ivana Gotti EO # 0.3 103/ul Normal 0.0-0.7 [facility] Comment on above: Performed By: #### C BC #### [facility] [address] [place] [address] Dr. Ivana Gotti Eosinophils/100 WBC (Bld) 3.8 % Normal 0.9-7.0 [facility] Comment on above: Performed By: #### C BC #### [facility] [address] [address] [address] Ivana Gotti Erythrocyte distribution wid th (RBC) [Ratio] 13.3 % Normal 11.0-15.0 [facility] Comment on above: Performed By: #### C BC #### [facility] [address] [address] [address] Ivana Gotti Hematocrit (Bld) [Volume fraction] 45.1 % Normal 3 6.0-48.0 [facility] Comment on above: Performed By: #### C BC #### [facility] [address] [place] [address] Dr. Ivana Gotti Hemoglobin (Bld) [Mass/Vol] 14.9 g/dL Normal 12.0-16. 0 [facility] Comment on above: Performed By: #### C BC #### [facility] [address] [place] [address] Dr. Ivana Gotti IG # 0.02 10e3/ul Normal 0.00-0.03 [facility] Comment on above: Performed By: #### C BC #### [facility] [address] [address] [address] Ivana Gotti IG % 0.3 % Normal 0.0-0.5 [facility] Comment on above: Performed By: #### C BC #### [facility] [address] [place] [address] Dr. Ivana Gotti LYMPH # 1.9 103/ul Normal 1.2-3.8 [facility] Comment on above: Performed By: #### C BC #### [facility] [address] [place] [address] Dr. Ivana Gotti Lymphocytes/100 WBC (Bld) 25.4 % Normal 20.5-60.0 [facility] Comment on above: Performed By: #### C BC #### [facility] [address] [place] [address] Dr. Ivana Gotti MANUAL DIFF REQ NO Normal [facility] Comment on above: Performed By: #### C BC #### [facility] [address] [place] [address] Dr. Ivana Gotti MCH (RBC) [Entitic mass] 31.2 pg Normal 26.7-34.0 [facility] Comment on above: Performed By: #### C BC #### [facility] [address] [place] [address] Dr. Ivana Gotti MCHC (RBC) [Mass/Vol] 33.0 g/dL Normal 29.9-35.2 [facility] Comment on above: Performed By: #### C BC #### [facility] [address] [place] [address] Dr. Ivana Gotti MCV (RBC) [Entitic vol] 94.5 fL Normal 81.0-99.0 [facility] Comment on above: Performed By: #### C BC #### [facility] [address] [place] [address] Dr. Ivana Gotti MONO # 0.5 103/ul Normal 0.3-0.8 [facility] Comment on above: Performed By: #### C BC #### [facility] [address] [place] [address] Dr. Ivana Gotti Monocytes/100 WBC (Bld) 6.9 % Normal 1.7-12.0 [facility] Comment on above: Performed By: #### C BC #### [facility] [address] [place] [address] Dr. Ivana Gotti NEUT # 4.7 103/ul Normal 1.4-6.5 [facility] Comment on above: Performed By: #### C BC #### [facility] [address] [place] [address] Dr. Ivana Gotti Neutrophils/100 WBC (Bld) 62.9 % Normal 43.0-75.0 [facility] Comment on above: Performed By: #### C BC #### [facility] [address] [place] [address] Dr. Ivana Gotti Platelet mean volume (Bld) [ Entitic vol] 10.2 fL Normal 9.5-13.5 [facility] Comment on above: Performed By: #### C BC #### [facility] [address] [place] [address] Dr. Ivana Gotti PLT 262 103/ul Normal 150-450 [facility] Comment on above: Performed By: #### C BC #### [facility] [address] [place] [address] Dr. Ivana Gotti RBC 4.77 106/ul Normal 4.20-5.40 [facility] Comment on above: Performed By: #### C BC #### [facility] [address] [place] [address] Dr. Ivana Gotti WBC 7.4 103/ul Normal 4.0-11.0 [facility] Comment on above: Performed By: #### C BC #### [facility] [address] [address] [address] Ivana Gotti LIPID PROFILEon 02-28-2022 CHOL-HDL RATIO NORM SEE BELOW Normal [facility] Comment on above: Result Comment: 3.3 - 4.4 LOW RISK 4.4 - 7.1 AVERAGE RISK 7.1 - 11.0 MODERATE RISK >11.0 HIGH RISK Performed By: #### L IPID, BMP, TSH #### [facility] [address] [address] [address] Ivana Gotti Cholesterol [Mass/Vol] 240 mg/dL Critically high <=200 [facility] Comment on above: Performed By: #### L IPID, BMP, TSH #### [facility] [address] [address] [address] Ivana Gotti Cholesterol in HDL [Mass/Vol] 123 mg/dL Critically high 4 0-60 [facility] Comment on above: Performed By: #### L IPID, BMP, TSH #### [facility] [address] [address] [address] Ivana Gotti Cholesterol in LDL [Mass/Vol] 107.8 mg/dL Normal [facility] Comment on above: Performed By: #### L IPID, BMP, TSH #### [facility] [address] [address] [address] Ivana Gotti Cholesterol.total/Cholestero l in HDL [Mass ratio] 2.0 {ratio} Normal [facility] Comment on above: Performed By: #### L IPID, BMP, TSH #### [facility] [address] [address] [address] Ivana Gotti HDL NORMAL > or = 60 mg/dl - LO W CARDIOVASCULAR RISK <40 mg/dl - HIGH CARDIOVASCULAR RISK Normal [facility] Comment on above: Performed By: #### L IPID, BMP, TSH #### [facility] [address] [address] [address] Ivana Gotti LDL CALC NORMAL SEE BELOW Normal [facility] Comment on above: Result Comment: <100 mg/dl OPTIMAL 100 - 129 mg/dl NEAR OR ABOVE OPTIMAL 130 - 159 mg/dl BORDERLINE HIGH 160 - 189 mg/dl HIGH >190 mg/dl VERY HIGH Performed By: #### L IPID, BMP, TSH #### [facility] [address] [place], [place] [address] Dr. Ivana Gotti Triglyceride [Mass/Vol] 46 mg/dL Normal <=150 [facility] Comment on above: Performed By: #### L IPID, BMP, TSH #### [facility] [address] [place], [place] [address] Dr. Ivana Gotti VLDL CALC 9.2 mg/dL Normal [facility] Comment on above: Performed By: #### L IPID, BMP, TSH #### [facility] [address] [place], [place] [address] Dr. Ivana Gotti MG MAMM SCREEN 3D PADMINI CADon 02-28-2022 MG MAMM SCREEN 3D PADMINI CAD Patient: MIKE RIVERA Exam Date: 02/28/2022 : 1955 Gender:F Ordering : DR ROB JIMÉNEZ D.O. Admission #: [id number] Family : Order #: [id number] CLICK HERE TO VIEW EXAM RADIOLOGY REPORT PROCEDURE: MAMMOGRAM SCREENING 3D BILATERAL CAD COMPARISON: MG MAMM PADMINI SCRN W CAD DIG, 04/26/2013. MG MAMM SCREEN 3D PADMINI CAD, 09/05/2020. INDICATIONS: Screening mammography Calculator Name NCI Breast Cancer Risk Assessment Tool 5 Year Breast Cancer Risk 1.40% Lifetime Breast Cancer Risk 5.80% Personal Breast Cancer No Personal Ovarian Cancer No Treatments None Family Cancers Aunt-maternal with breast cancer at age 60; Aunt-maternal with breast cancer at age 60; Aunt-maternal with breast cancer at age 60; Grandmother-maternal with ovarian cancer at age 58; Grandfather-paternal with lung cancer at age 70. LOCATION: [facility] BREAST COMPOSITION: Heterogeneously dense,which may obscure small masses. FINDINGS: DIAGNOSTIC CATEGORY 1--NEGATIVE. NO CHANGE FROM COMPARISON ASSESSMENT. Scattered benign-appearing calcifications are present. Scattered benign-appearing lymph nodes are present. RIGHT BREAST: No significant suspicious finding. LEFT BREAST: No significant suspicious finding. RECOMMENDATIONS: ROUTINE MAMMOGRAM AND CLINICAL EVALUATION IN 12 MONTHS. PLEASE NOTE: A NORMAL MAMMOGRAM DOES NOT EXCLUDE THE POSSIBILITY OF BREAST CANCER. A CLINICALLY SUSPICIOUS PALPABLE LUMP SHOULD BE BIOPSIED. Dictated by: Daljit Tobar MD on 02/28/2022 at 08:31 Approved by: Daljit Tobar MD on 02/28/2022 at 08:40 Normal [facility] PROF CHEM 8 (BAS METB)on Anion gap [Moles/Vol] 10.3 mmol/L Normal [facility] Comment on above: Performed By: #### L IPID, BMP, TSH #### [facility] [address] [place] [address] Dr. Ivana Gotti Calcium [Mass/Vol] 9.5 mg/dL Normal 8.5-10.1 [facility] Comment on above: Performed By: #### L IPID, BMP, TSH #### [facility] [address] [place] [address] Dr. Ivana Gotti Chloride [Moles/Vol] 104 mmol/L Normal 98-107 [facility] Comment on above: Performed By: #### L IPID, BMP, TSH #### [facility] [address] [place] [address] Dr. Ivana Gotti CO2 [Moles/Vol] 26.8 mmol/L Normal 21.0-32.0 [facility] Comment on above: Performed By: #### L IPID, BMP, TSH #### [facility] [address] [place] [address] Dr. Ivana Gotti Creatinine [Mass/Vol] 0.85 mg/dL Normal 0.55-1.02 [facility] Comment on above: Performed By: #### L IPID, BMP, TSH #### [facility] [address] [place] [address] Dr. Ivana Gotti EGFR-AF INDIAN >60 Normal >=60 [facility] Comment on above: Performed By: #### L IPID, BMP, TSH #### [facility] [address] [place] [address] Dr. Ivana Gotti EGFR-NON AF INDIAN >60 Normal >=60 [facility] Comment on above: Performed By: #### L IPID, BMP, TSH #### [facility] [address] [address] [address] Ivana Gotti Glucose [Mass/Vol] 117 mg/dL Critically high 74-106 [facility] Comment on above: Performed By: #### L IPID, BMP, TSH #### [facility] [address] [address] [address] Ivana Gotti Potassium [Moles/Vol] 4.1 mmol/L Normal 3.5-5.1 [facility] Comment on above: Performed By: #### L IPID, BMP, TSH #### [facility] [address] [address] [address] Ivana Gotti Sodium [Moles/Vol] 137 mmol/L Normal 136-145 [facility] Comment on above: Performed By: #### L IPID, BMP, TSH #### [facility] [address] [place] [address] Dr. Ivana Gotti Urea nitrogen [Mass/Vol] 19.0 mg/dL Critically high 7.0-18 .0 [facility] Comment on above: Performed By: #### L IPID, BMP, TSH #### [facility] [address] [address] [address] Ivana Gotti Urea nitrogen/Creatinine [Mass ratio] 22.4 mg/mg Normal [facility] Comment on above: Performed By: #### L IPID, BMP, TSH #### [facility] [address] [address] [address] Ivana Gotti TSHon 02-28-2022 TSH 4.341 uIU/mL Critically high 0.358-3.740 [facility] Comment on above: Performed By: #### L IPID, BMP, TSH ####[facility] [id number] [address]Dr. Ivana Gotti VITAMIN D 25 OHon 02-28-2022 VIT D 25-OH 16.8 ng/mL Normal [facility] Comment on above: Performed By: #### V ITAD #### [facility] [address] [place] [address] Dr. Ivana Gotti VIT D RANGES SEE BELOW Normal [facility] Comment on above: Result Comment: <20 ng/mL Vit D deficient 20 - <30 ng/mL Vit D insufficient 30 - 100 ng/mL Vit D sufficient >100 ng/mL Potential Toxicity Performed By: #### V ITAD #### [facility] [address] [place], [place] [address] Dr. Ivana Gotti Physician Referralon 022 Physician Referral [id number]:127 Normal [facility] Patient Educationon 02-04-20 22 Patient Education Urology Urethral Stricture Urethral stricture is narrowing of the tube (urethra) that carries urine from the bladder out of the body. The urethra can become narrow due to scar tissue from an injury or infection. This can make it difficult to pass urine. In women, the urethra opens above the vaginal opening. In men, the urethra opens at the tip of the penis, and the urethra is much longer than it is in women. Because of the length of the male urethra, urethral stricture is much more common in men. This condition is treated with surgery. What are the causes? In both men and women, common causes of urethral stricture include: ? Urinary tract infection (UTI). ? Sexually transmitted infection (STI). ? Use of a tube placed into the urethra to drain urine from the bladder (urinary catheter). ? Urinary tract surgery. In men, common causes of urethral stricture include: ? A severe injury to the pelvis. ? Prostate surgery. ? Injury to the penis. In many cases, the cause of urethral stricture is not known. What increases the risk? You are more likely to develop this condition if you: ? Are male. Men who have had prostate surgery are at risk of developing this condition. ? Use a urinary catheter. ? Have had urinary tract surgery. What are the signs or symptoms? The main symptom of this condition is difficulty passing urine. This may cause decreased urine flow, dribbling, or spraying of urine. Other symptom of this condition may include: ? Frequent UTIs. ? Blood in the urine. ? Pain when urinating. ? Swelling of the penis in men. ? Inability to pass urine (urinary obstruction). How is this diagnosed? This condition may be diagnosed based on: ? Your medical history and a physical exam. ? Urine tests to check for infection or bleeding. ? X-rays. ? Ultrasound. ? Retrograde urethrogram. This is a type of test in which dye is injected into the urethra and then an X-ray is taken. ? Urethroscopy. This is when a thin tube with a light and camera on the end (urethroscope) is used to look at the urethra. How is this treated? This condition is treated with surgery. The type of surgery that you have depends on the severity of your condition. You may have: ? Urethral dilation. In this procedure, the narrow part of the urethra is stretched open (dilated) with dilating instruments or a small balloon. ? Urethrotomy. In this procedure, a urethroscope is placed into the urethra, and the narrow part of the urethra is cut open with a surgical blade inserted through the urethroscope. ? Open surgery. In this procedure, an incision is made in the urethra, the narrow part is removed, and the urethra is reconstructed. Follow these instructions at home: ? Take rayd-sdb-vdzboch and prescription medicines only as told by your health care provider. ? If you were prescribed an antibiotic medicine, take it as told by your health care provider. Do not stop taking the antibiotic even if you start to feel better. ? Drink enough fluid to keep your urine pale yellow. ? Keep all follow-up visits as told by your health care provider. This is important. Contact a health care provider if: ? You have signs of a urinary tract infection, such as: ? Frequent urination or passing small amounts of urine frequently. ? Needing to urinate urgently. ? Pain or burning with urination. ? Urine that smells bad or unusual. ? Cloudy urine. ? Pain in the lower abdomen or back. ? Trouble urinating. ? Blood in the urine. ? Vomiting or being less hungry than normal. ? Diarrhea or abdominal pain. ? Vaginal discharge, if you are female. ? Your symptoms are getting worse instead of better. Get help right away if: ? You cannot pass urine. ? You have a fever. ? You have swelling, bruising, or discoloration of your genital area. This includes the penis, scrotum, and inner thighs for men, and the outer genital organs (vulva) and inner thighs for women. ? You develop swelling in your legs. ? You have difficulty breathing. Summary ? Urethral stricture is narrowing of the tube (urethra) that carries urine from the bladder out of the body. The urethra can become narrow due to scar tissue from an injury or infection. ? This condition can make it difficult to pass urine. ? This condition is treated with surgery. The type of surgery that you have depends on the severity of your condition. ? Contact a health care provider if your symptoms get worse or you have signs of a urinary tract infection. This information is not intended to replace advice given to you by your health care provider. Make sure you discuss any questions you have with your health care provider. Document Released: 06/06/2016 Document Revised: 12/22/2018 Document Reviewed: 12/22/2018 Upkeep Charlie Patient Education ? 2019 [place]. [facility] Urology Office/Clinic Noteon 02-03-2022 Urology Office/Clinic Note Chief Complaint 4 month UD HPI Staff Pt is here for 4 month f/u with UD. Previous dx of postinfective urethral stricture and chronic cystitis. Pt states she is self cathing 3-4x daily. Pt is using Estrace cream 1 gram 3x a week. Pt also states that she uses Dmannose sometimes but not regular. Dysuria: states she always has a little discomfort Incomplete bladder emptying: yes Hematuria: no Frequency: no Urgency: no Nocturia: no Stream: weak Leaking: no Post void dripping: no Wearing pads/ Depends: no Urge incontinence: no Stress incontinence: no Incontinence without Sensory Awareness: no Abdominal pain: little discomfort Flank pain: little discomfort Sexual complaints: no History of Present Illness I have reviewed and verified the staff HPI to be accurate for this encounter. Review of Systems PHQ Score Initial Depression Screen Score: 0 ROS - Provider Constitutional: denies weight loss, denies hot flashes. Eyes: denies eye problems. Gastrointestinal: denies nausea, denies vomiting. Cardiovascular: denies chest pain or angina. Integumentary: no dryness Musculoskeletal: denies musculoskeletal symptoms. ENMT: denies otolaryngeal symptoms. Respiratory: no shortness of breath. Heme/Lymph: denies easy bleeding tendency, denies easy bruising tendency. Psychiatric: no confusion, no anxiety. Genitourinary: denies vaginal discharge, denies incontinence, denies dysuria, denies hematuria, denies urinary frequency, denies amenorrhea, denies menorrhagia, denies abnormal bleeding, denies pelvic pain, denies genital sores, and denies decreased libido. Physical Exam Vitals & Measurements HR: 74(Peripheral) RR: 16 BP: 137/88 HT: 167.6 cm HT: 167.6 cm WT: 63.0 kg WT: 63 kg BMI: 22.43 General Appearance: alert , no acute distress, well nourished, well developed female. Genitourinary: bladder nonpalpable, no flank pain. Procedure Operative Information Anesthesia Type: Local Procedure: Local Urethral Dilation Complications: None Surgical risks, benefits, details of the procedure have been explained to the patient. Full informed consent has been obtained. Intraoperative Information Prepped: Patient is brought back to the endoscopy suite. Patient is placed in modified dorso/lithotomy position. Patient prepped in the usual fashion with Betadine solution. 2% Xylocaine Jelly is placed per Urethra. The Urethra is: Tight The Urethra was dilated to: 20-30 Greenlandic with sounds. Specimens Removed: None Postoperative Information Patient is discharged home. Follow up arranged. Assessment/Plan 1. Postinfective urethral stricture of female (N35.12: Postinfective urethral stricture, not elsewhere classified, female) IO UD done today w/o complications. Previous UD done 10/14/2021 IO. Pt will return in 3 months for another UD. 2. Chronic cystitis (N30.20: Other chronic cystitis without hematuria) UA today shows colonization because pt CIC daily, and she has no sxs. Pt to continue Estrace cream 3x a week. Follow-up With When Contact Information CORNELIO GATES, Nasir York, LARON In 3 months 05/05/2022 EST [facility] [address] [place] [address] [phone] Additional Instructions: IO UD Patient Education Urethral Stricture I, Allie Zuluaga_, personally scribed for Dr. Nance on 02/03/2022 16:39:39. . Documentation recorded by the scribe, Allie Zuluaga, accurately reflects the services(s) I performed and decisions made by me. Problem List/Past Medical History Ongoing Anxiety Chronic cystitis Incomplete bladder emptying Neurogenic bladder Postinfective urethral stricture of female Smoker Urinary retention Weak urinary stream Historical No qualifying data Procedure/Surgical History Dilation of urethra (02/03/2022), UD - Urethral dilatation (01/10/2019), Urodynamics (08/21/2003), Appendectomy, Caesarean section, Cholecystectomy, dilation of uretheral stricture, Hysterectomy, skin cancer removal. Medications Estrace 0.1 mg/g Cream, 1 gm, Vaginal, As Directed, 1 refills Allergies Macrobid (Rash) cefaclor (Joint swelling, Rash) erythromycin (Joint swelling, Rash) penicillin (Rash) sulfa drugs (Nausea and vomiting) Social History Alcohol Current, Beer, Daily, 01/10/2019 Tobacco 10 or more cigarettes (1/2 pack or more)/day in last 30 days, Smoker, current status unknown Tobacco Use:. Cigarettes, Yes, 09/18/2021 Family History Hypertension: Mother and Father. Immunizations Vaccine Date Status SARS-CoV-2 (COVID-19) Ad26 vaccine 04/2021 Recorded SARS-CoV-2 (COVID-19) Ad26 vaccine 09/2020 Recorded Lab Results Ambulatory Point of Care Results Bilirubin Urine Dipstick: Negative (02/03/22 16:05:00) Blood Urine Dipstick: Trace-intact (02/03/22 16:05:00) Glucose Urine Dipstick: Negative (02/03/22 16:05:00) Ketones Urine Dipstick: Negative (02/03/22 16:05:00) Leukocytes Urine Dipsti (more content not included)... Normal [facility] Comment on above: Result Comment: Elec tronically Signed By: Nasir NANCE MD\.br\Date and Time Signed: 02/03/22 16:41 EDT\.br\Electronically Co-Signed By: Allie Zuluaga MA\.br\Date and Time Co-Signed: 02/03/22 16:40 EDT Vital Signs Date Time Vital Sign Value Performing Clinician Facility 04-30-2023 19:53-0500 Body height 167.64 cm Orly Pedersen Other [facility] Other 04-13-2023 15:00-0500 Body height 167.64 cm Rob Jiménez Other [facility] Other 04-13-2023 15:00-0500 Body mass index (BMI) [Ratio] 22.88 kg/m2 Rob Ball Other [facility] Other 04-13-2023 15:00-0500 Body weight 64.32 kg Rob Ball Other [facility] Other 04-13-2023 15:00-0500 Diastolic blood pressure 87 mm[Hg] Rob Ball Other [facility] Other 04-13-2023 15:00-0500 Respiratory rate 12 /min Rob Ball Other [facility] Other 04-13-2023 15:00-0500 Systolic blood pressure 153 mm[Hg] Rob Ball Other [facility] Other 10-22-2022 15:30-0400 Body height 167.64 cm Rob Ball Other [facility] Other 10-22-2022 15:30-0400 Body mass index (BMI) [Ratio] 22.34 kg/m2 Rob Ball Other [facility] Other 10-22-2022 15:30-0400 Body weight 62.78 kg Rob Ball Other [facility] Other 10-22-2022 15:30-0400 Diastolic blood pressure 92 mm[Hg] Rob Ball Other [facility] Other 10-22-2022 15:30-0400 Respiratory rate 12 /min Rob Ball Other [facility] Other 10-22-2022 15:30-0400 Systolic blood pressure 168 mm[Hg] Rob Ball Other [facility] Other 08-11-2022 11:57-0400 Blood Pressure Location Nasir NANCE [facility] 08-11-2022 11:57-0400 Diastolic blood pressure 89 mm[Hg] Nasir NANCE [facility] 08-11-2022 11:57-0400 Heart rate 82 /min Nasir NANCE [facility] 08-11-2022 11:57-0400 Respiratory rate 16 /min Nasir NANCE [facility] 08-11-2022 11:57-0400 Systolic blood pressure 132 mm[Hg] Nasir NANCE [facility] 04-28-2022 16:11-0500 Blood Pressure Location Nasir NANCE [facility] 04-28-2022 16:11-0500 Diastolic blood pressure 82 mm[Hg] Nasir NANCE [facility] 04-28-2022 16:11-0500 Heart rate 70 /min Nasir NANCE [facility] 04-28-2022 16:11-0500 Respiratory rate 16 /min Nasir NANCE [facility] 04-28-2022 16:11-0500 Systolic blood pressure 127 mm[Hg] Nasir NANCE [facility] 03-04-2022 15:23-0400 Blood Pressure Location Link [facility] [place] 03-04-2022 15:23-0400 Diastolic blood pressure 84 mm[Hg] Link NILL [facility] [place] 03-04-2022 15:23-0400 Heart rate 72 /min Link NILL [facility] [place] 03-04-2022 15:23-0400 Respiratory rate 16 /min Link NILL [facility] [place] 03-04-2022 15:23-0400 Systolic blood pressure 136 mm[Hg] Link NILL [facility] [place] 02-03-2022 16:22-0400 Blood Pressure Location Nasir NANCE [facility] 02-03-2022 16:22-0400 Diastolic blood pressure 88 mm[Hg] Nasir NANCE [facility] 02-03-2022 16:22-0400 Heart rate 74 /min Nasri NANCE [facility] 02-03-2022 16:22-0400 Respiratory rate 16 /min Nasir NANCE [facility] 02-03-2022 16:22-0400 Systolic blood pressure 137 mm[Hg] Nasir NANCE [facility] 10-14-2021 15:54-0400 Blood Pressure Location Nasir NANCE [facility] 10-14-2021 15:54-0400 Diastolic blood pressure 87 mm[Hg] Nasir NANCE [facility] 10-14-2021 15:54-0400 Heart rate 80 /min Nasir NANCE [facility] 10-14-2021 15:54-0400 Respiratory rate 16 /min Nasir NANCE [facility] 10-14-2021 15:54-0400 Systolic blood pressure 137 mm[Hg] Nasir NANCE [facility] 09-18-2021 13:19-0400 Blood Pressure Location Nasir NANCE [facility] 09-18-2021 13:19-0400 Diastolic blood pressure 85 mm[Hg] Nasir NANCE [facility] 09-18-2021 13:19-0400 Heart rate 84 /min Nasir NANCE [facility] 09-18-2021 13:19-0400 Systolic blood pressure 152 mm[Hg] Nasir NANCE [facility] Encounters Encounter Date Encounter Type Care Provider Facility Start: 05-04-2023 End: 05-04-2023 ambulatory Rob Jiménez Other [facility] Other Start: 05-04-2023 Telephone encounter Rob Jiménez [facility] Start: 04-30-2023 End: 04-30-2023 ambulatory Orly Pedersen Other [facility] Other Start: 04-30-2023 Telephone encounter Orly [facility] Start: 04-13-2023 End: 04-13-2023 ambulatory Rob Jiménez Other [facility] Other Start: 04-13-2023 Encounter for alize l adult medical examination without abnormal findings Rob Jim[facility]nez [facility] Start: 04-13-2023 Periodic preventive med est patient 65yrs& older Rob Jiménez [facility] Start: 03-27-2023 End: 03-27-2023 ambulatory Rob Jiménez Other [facility] Other Start: 03-27-2023 Office outpatient vi sit 15 minutes Rob Jiménez [facility] Start: 01-30-2023 ambulatory Nasir Mosesi ty:[facility] Start: 11-09-2022 End: 11-09-2022 ambulatory Orly Nuvia Other [facility] Other Start: 11-09-2022 Encounter by ata [facility]ers[facility] Start: 10-23-2022 End: 10-23-2022 ambulatory Orly Pedersen Other [facility] Other Start: 10-23-2022 Telephone encounter Orly [facility] Start: 10-22-2022 End: 10-22-2022 ambulatory Rob Jiménez Other [facility] Other Start: 10-22-2022 Office outpatient vi sit 25 minutes Rob Jiménez [facility] Start: 09-28-2022 End: 09-28-2022 ambulatory KENDALL LANDIS . Facility: Start: 08-11-2022 End: 08-12-2022 ambulatory Nasir NANCE Facility:[facility] [place] Start: 08-11-2022 End: 08-11-2022 Patient encounter procedure Nasir NANCE [facility] Start: 07-28-2022 End: 07-29-2022 ambulatory Nasir NANCE Facility:[facility] Start: 07-28-2022 End: 07-28-2022 Patient encounter procedure Nasir York NANCE [facility] Start: 05-22-2022 End: 05-23-[address] ROB JIMÉNEZ Facility: Start: 04-28-2022 End: 04-29-2022 ambulatory Nasircyndi NANCE Facility:[facility] Start: 04-28-2022 End: 04-28-2022 Patient encounter procedure Nasir NANCE [facility] Start: 04-09-2022 End: 04-10-[address] LINK CALHOUN . Facility: Start: 04-08-2022 Encounter for preprocedural laboratory examination DR LINK CALHOUN . [facility] Start: 04-05-2022 End: 04-06-[address] LIKN CALHOUN . Facility:[facility] Start: 04-05-2022 End: 04-06-2022 Encounter for preprocedural laboratory examination DR LINK CALHOUN . Facility: Start: 03-04-2022 End: 03-05-2022 ambulatory Link CALHOUN Facility:[facility] Start: 03-04-2022 End: 03-04-2022 Patient encounter procedure Link CALHOUN [facility] Start: 03-03-2022 Encounter for genera l adult medical examination without abnormal findings DR ROB JIMÉNEZ [facility] Start: 02-28-2022 End: 03-01-[address] ROB JIMÉNEZ Facility: Start: 02-28-2022 End: 03-01-2022 Encounter for general adult medical examination without abnormal findings DR ROB JIMÉNEZ Facility:[facility] Start: 02-14-2022 ambulatory Link CALHOUN Facility :[facility] Start: 02-12-2022 Adult health examination Kong Jiménez Other [facility] Other Start: 02-12-2022 Gynecological examination normal Rob Jiménez Other [facility] Other Start: 02-03-2022 End: 02-04-2022 ambulatory Nasir NANCE Facility:[facility] Start: 02-03-2022 End: 02-03-2022 Patient encounter procedure Nasircyndi NANCE [facility] Start: 10-14-2021 End: 10-14-2021 Patient encounter procedure Nasir NANCE [facility] Start: 09-18-2021 End: 09-18-2021 Lab Drop off Nasir R NANCE [facility] Start: 09-18-2021 End: 09-18-2021 Patient encounter procedure Nasir NANCE [facility] Procedures Date Procedure Procedure Detail Performing Clinician Start: 08-11-2022 Dilation of urethra Nasircyndi NANCE Start: 02-03-2022 Dilation of urethra Nasircyndi NANCE Start: 01-10-2019 Dilation of urethra Nasircyndi NANCE Start: 05-25-2005 Colonoscopy [facility] Start: 05-25-2005 Esophagogastroduodenoscopy Link [facility] Start: 08-21-2003 Urodynamics Nasir NANCE Appendectomy Nasir NANCE Bilateral salpingect dawson with oophorectomy [facility] section Nasir ZEPEDA Comment on above: x2 section Link [facility] Cholecystectomy Nasir EDIN ODOM Colonoscopy abnormal (finding) Nasir NANCE Cystoscopy [facility] Depression screening Kaitlyn Jiménez Other dilation of uretheral stricture 2 Nasir NANCE Comment on above: 05/10/10, 07/22/10, , 12/23/10, 03/10/11, 05/05/11, 07/18/11, 10/17/11, 01/02/12, 05/10/12, 03/12/12, 07/23/12, 11/05/12, 01/07/13, 03/28/13, 05/13/13, 07/15/13, 09/30/13, 12/09/13, 02/24/14, 15, 09/21/15, 11/23/15, 02/08/16, 04/16/16, 08/07/16, 12/22/16, 02/20/17, 04/24/17, 07/17/17, 01/11/18, 03/26/18, 05/17/18, 08/23/18, 01/10/19. General examination of patient Rob Jiménez Other Hysterectomy Nasir NANCE Laparoscopy [facility] Lysis of adhesions Link [facility] ANTONIO Screening for malignant neoplasm of breas t Rob Jiménez Other skin cancer removal 3 Rigoberto NANCE Comment on above: from face Total abdominal hysterectomy [facility] Immunizations Immunization Date Immunization Notes Care Provider Fa roderick 05-13-2021 SARS-CoV-2 (COVID-19 ) Ad26 vaccine, recombinant Nasir NANCE [facility] Comment on above: Result Comment: 2022: [id number] 04-24-2021 SARS-CoV-2 (COVID-19 ) Ad26 vaccine, recombinant Nasir NANCE [facility] 10-19-2020 SARS-CoV-2 (COVID-19 ) Ad26 vaccine, recombinant Nasir NANCE [facility] Comment on above: Result Comment: 2022: [id number] 09-22-2020 SARS-CoV-2 (COVID-19 ) Ad26 vaccine, recombinant Nasir NANCE [facility] 09-01-2020 SARS-CoV-2 (COVID-19 ) [id number] Nasircyndi NANCE [facility] 05-01-2020 SARS-CoV-2 (COVID-19 ) mRNA BNT-162b2 vax Nasir NANCE [facility] 04-03-2020 SARS-CoV-2 (COVID-19 ) mRNA-1273 vaccine Nasircyndi NANCE [facility] Payers Date Payer Category Payer Unknown [id number] 1955 Unknown [id number] 2.16.84 [id number] 1955 Unknown [id number] 2.16.84 [id number] 1955 Unknown [id number] 2.16.84 [id number] 1955 Unknown [id number] 2.16.84 [id number] 1957 Unknown [id number] 2.16.84 [id number] 1957 Unknown [id number] 2.16.8 [id number] 1955 Unknown [id number] 2.16.8 [id number] 1957 Unknown [id number] 2.16.8 [id number] 1957 Unknown [id number] 2.16.8 [id number] 1957 Unknown [id number] 2.16.8 [id number] 1957 Unknown [id number] 2.16.8 [id number] 1957 Unknown [id number] 2.16.8 [id number] 1957 Unknown [id number] 2.16.8 [id number] 1955 Unknown [id number] 2.16.8 [id number] Social History Date Type Detail Facility Start: 09-18-2021 End: 07-28-2022 Tobacco smoking status Heavy tobacco smoker (finding) [facility] [place] [facility] Tobacco smoking status Smoker (finding) [facility] Sex Assigned At Female [facility] Tobacco smoking status Never [facility] [place] Functional Status Date Assessment Result Facility 08-11-2022 Functional Status N/A [facility] 07-28-2022 Functional Status N/A [facility] 04-28-2022 Functional Status N/A [facility] 03-04-2022 Functional Status N/A General Orellana michelle [place] 02-03-2022 Functional Status N/A [facility] Clinical Notes 09-18-2021 to 04-13-2023 Note Date & Type Note Facility 04-13-2023 Evaluation note Encounter Date Diagnosis Assessment Notes Mar, Wellness examination (ICD-10 - Z00.00) Healthy diet and exercise. Reviewed age-appropriat e preventive testing recommended. Discussed LDCT but declines. Mar, IFG (impaired fasting glucose) (ICD-10 - R73.01) A1C normal Healthy diet and exercise Mar, Primary hypertension (ICD-10 - I10) Uncontrolled per office BP. This patient is instructed to consume a healthy, low-fat, low-salt diet. They are also encouraged to continue exercise to achieve/mainta in a normal BMI. Patient is instructed on home BP measurements: - rest for 5 minutes w/o talking- positioned w/ feet on floor and arm supported- average best 2/3 readings w/ goal < 135/85 _update office w/ readings Mar, Autoimmune thyroiditis (ICD-10 - E06.3) Euthyroid clinically, TSH yearly Mar, Other specified hypothyroidism (ICD-10 - E03.8) Mar, Nicotine dependence, cigarettes, uncomplicated (ICD-10 - F17.210) Age started 20, 1 ppd, continued dependency This patient has been encouraged to quit tobacco use immediately. They are aware of the hazards associated with tobacco use, including but not limited to respiratory infections, vascular disease and cancers. Discussed smoking cessation Mar, Lumbar spondylosis (ICD-10 - M47.816) The patient is instructed to avoid bending, twisting or lifting. They are to use intermittent heat and ice as needed. They may schedule a massage or gentle manipulation. They may safely use Tylenol as needed. Mar, CORTNEY (generalized anxiety disorder) (ICD-10 - F41.1) Healthy diet and exercsie Did not start Lexapro and only occasionally uses Ativan Mar, Urinary retention (ICD-10 - R33.9) Chronic condtion Continue Estrogen Crm and straight cath daily Mar, Mucopurulent chronic bronchitis (ICD-10 - J41.1) Instructed to stop smoking immediately. Mucinex as needed for cough. CXR due to increased rhochi on right side Mar, Chronic cough (ICD-10 - R05.3) Mar, Screening mammogram for breast cancer (ICD-10 - Z12.31) Instructed patient on monthly SBE and yearly mammograms. [facility] Other 11-03-2023 Evaluation note* Encounter Date Diagnosis Assessment Notes Treatment Notes Treatment Clinical Notes Mar, Migraine with aura and without status migrainosus, not intractable (ICD-10 - G43.109) Tylenol 1000mg tid as needed. Aleve bid as needed - may lead to increased BP Healthy diet and keep active Consistent sleep routine Mar, Primary hypertension (ICD-10 - I10) Restart antihypertensive treatment. This patient is instructed to consume a healthy, low-fat, low-salt diet. They are also encouraged to continue exercise to achieve/maintain a normal BMI. [facility] Other 06-01-2023 Evaluation note* Encounter Date Diagnosis Assessment Notes Treatment Notes Treatment Clinical Notes Oct, Primary hypertension (ICD-10 - I10) [facility] Other 05-31-2023 Evaluation note* Encounter Date Diagnosis Assessment Notes Treatment Notes Treatment Clinical Notes September, Primary hypertension (ICD-10 - I10) This patient is instructed to consume a healthy, low-fat, low-salt diet. They are also encouraged to continue exercise to achieve/maintain a normal BMI. September, IFG (impaired fasting glucose) (ICD-10 - R73.01) Healthy diet, exercise. Yearly eye examination. A1C to determine average BS Sugars reviewed and above normal values. Risk of progression to to DMII discussed. September, Nicotine dependence, cigarettes, uncomplicated (ICD-10 - F17.210) This patient has been encouraged to quit tobacco use immediately. They are aware of the hazards associated with tobacco use, including but not limited to respiratory infections, vascular disease and cancers. September, Autoimmune thyroiditis (ICD-10 - E06.3) TSH remains elevated Compliant w/ Levothyroxine - take on empty stomach - avoid use of Biotin 72 hours prior to testing September, Other specified hypothyroidism (ICD-10 - E03.8) September, Vitamin D deficiency (ICD-10 - E55.9) Continue Ca and Vitamin D supplements. Recheck Vitamin D level [facility] Other 03-20-2023 Hospital Discharge instructions Patient Education 08/11/2022 08:24:53 Urethral Dilation Urethral Dilation Urethral dilation is a procedure to stretch open (dilate) the urethra. The urethra is the tube thatdrains urine from the bladder out of the body. In women, the urethra opens above the vaginal opening. In men, the urethra opens at the tip of the penis. Urethral dilation is usually done to treat narrowing of the urethra (urethral stricture), which can make it difficult to pass urine. Urethral dilation widens the urethra so that you can pass urine normally. Urethral dilation is done through the urethral opening. There are no incisions made during the procedure. Tell a health care provider about: Any allergies you have. All medicines you are taking, including vitamins, herbs, eye drops, creams, and htyn-aru-dxquqhf medicines. Any problems you or family members have had with anesthetic medicines. Any blood disorders you have. Any surgeries you have had. Any medical conditions you have. Whether you are or may be . What are the risks? Generally, this is a safe procedure. However, problems may occur, including: Bleeding. Infection. A return of urethral stricture, which requires repeating the dilation procedure. Damage to the urethra, which may require reconstructive surgery. Allergic reactions to medicines. What happens before the procedure? Medicines Ask your health care provider about: Changing or stopping your regular medicines. This is especially important if you are taking diabetes medicines or blood thinners. Taking medicines such as aspirin and ibuprofen. These medicines can thin your blood. Do not take these medicines unless your health care provider tells you to take them. Taking dphy-flf-rnskhxs medicines, vitamins, herbs, and supplements. General instructions Follow instructions from your health care provider about eating or drinking restrictions. Plan to have someone take you home from the hospital or clinic. If you will be going home right after the procedure, plan to have someone with you for 24 hours. Ask your health care provider what steps will be taken to help prevent infection. These may include: ?Washing skin with a germ-killing soap. ?Taking antibiotic medicine. What happens during the procedure? An IV may be inserted into one of your veins. You will be given one or more of the following medicines: ?A local anesthetic to numb your urethral opening. This will be applied as a gel that will also lubricate the urethral opening. ?A sedative to help you relax. A thin tube with a light and camera on the end (cystoscope) will be inserted into your urethra. Your urethra will be rinsed (irrigated) with a germ-free (sterile) water solution. Narrow parts of your urethra will be stretched open using a dilator tool. Your surgeon will start with a very thin dilator, then use wider dilators as needed. A thin tube with an inflatable balloon on the tip may be inserted into your urethra. The balloon may be inflated to help stretch your urethra open. Your urethra will be irrigated. The procedure may vary among health care providers and hospitals. What can I expect after the procedure? After the procedure, it is common to have: ?Burning pain when urinating. ?Blood in your urine. ?A need to urinate frequently. You will be asked to urinate before you leave the hospital or clinic. Your urine flow should improve within a few days. Follow these instructions at home: Medicines Take vdua-amq-odevcet and prescription medicines only as told by your health care provider. If you were prescribed an antibiotic medicine, take it as told by your health care provider. Do notstop taking the antibiotic even if you start to feel better. Ask your health care provider if the medicine prescribed to you: ?Requires you to avoid driving or using heavy machinery. ?Can cause constipation. You may need to take these actions to prevent or treat constipation: ?Take bjky-wes-krdtozx or prescription medicines. ?Eat foods that are high in fiber, such as beans, whole grains, and fresh fruits and vegetables. ?Limit foods that are high in fat and processed sugars, such as fried or sweet foods. General instructions Do not drive for 24 hours if you were given a sedative during your procedure. If you were sent home with a small, lubricated tube (catheter) to help keep your urethra open, follow your health care provider's instructions about how and when to use it. Drink enough fluid to keep your urine pale yellow. Return to your normal activities as told by your health care provider. Ask your health care provider what activities are safe for you. Keep all follow-up visits as told by your health care provider. This is important. Contact a health care provider if: Your urine is cloudy and smells bad. You develop new bleeding when you urinate. You pass blood clots when you urinate. You have pain that does not get better with medicine. You have a fever. You have swelling, bruising, or discoloration of your genital area. This includes the penis, scrotum, and inner thighs for men, and the outer genital organs (vulva) and inner thighs for women. Get help right away if: You develop new bleeding that does not stop. You cannot pass urine. Summary Urethral dilation is a procedure to stretch open (dilate) the urethra. Urethral dilation is usually done to treat narrowing of the urethra (urethral stricture), which canmake it difficult to pass urine. Ask your health care provider about changing or stopping your regular medicines before the procedure. After the procedure, it is common to have burning pain when urinating, blood in your urine, and a need to urinate frequently. This information is not intended to replace advice given to you by your health care provider. Make sure you discuss any questions you have with your health care provider. Document Released: 06/06/2016 Document Revised: 06/23/2019 Document Reviewed: 06/23/2019 [employer] Patient Education 2019 [employer]. Follow Up Care 07/28/2022 15:53:37 With:CORNELIO GATES, Nasir York, URL Address: [facility] [address] , [place] [address]- When: Unknown [facility] 03-06-2023 Hospital Discharge instructions Patient Education 07/28/2022 08:45:06 Urethral Dilation Urethral Dilation Urethral dilation is a procedure to stretch open (dilate) the urethra. The urethra is the tube thatdrains urine from the bladder out of the body. In women, the urethra opens above the vaginal opening. In men, the urethra opens at the tip of the penis. Urethral dilation is usually done to treat narrowing of the urethra (urethral stricture), which can make it difficult to pass urine. Urethral dilation widens the urethra so that you can pass urine normally. Urethral dilation is done through the urethral opening. There are no incisions made during the procedure. Tell a health care provider about: Any allergies you have. All medicines you are taking, including vitamins, herbs, eye drops, creams, and bxeg-zze-shgrqui medicines. Any problems you or family members have had with anesthetic medicines. Any blood disorders you have. Any surgeries you have had. Any medical conditions you have. Whether you are or may be . What are the risks? Generally, this is a safe procedure. However, problems may occur, including: Bleeding. Infection. A return of urethral stricture, which requires repeating the dilation procedure. Damage to the urethra, which may require reconstructive surgery. Allergic reactions to medicines. What happens before the procedure? Medicines Ask your health care provider about: Changing or stopping your regular medicines. This is especially important if you are taking diabetes medicines or blood thinners. Taking medicines such as aspirin and ibuprofen. These medicines can thin your blood. Do not take these medicines unless your health care provider tells you to take them. Taking ocig-dkd-iyemvza medicines, vitamins, herbs, and supplements. General instructions Follow instructions from your health care provider about eating or drinking restrictions. Plan to have someone take you home from the hospital or clinic. If you will be going home right after the procedure, plan to have someone with you for 24 hours. Ask your health care provider what steps will be taken to help prevent infection. These may include: ?Washing skin with a germ-killing soap. ?Taking antibiotic medicine. What happens during the procedure? An IV may be inserted into one of your veins. You will be given one or more of the following medicines: ?A local anesthetic to numb your urethral opening. This will be applied as a gel that will also lubricate the urethral opening. ?A sedative to help you relax. A thin tube with a light and camera on the end (cystoscope) will be inserted into your urethra. Your urethra will be rinsed (irrigated) with a germ-free (sterile) water solution. Narrow parts of your urethra will be stretched open using a dilator tool. Your surgeon will start with a very thin dilator, then use wider dilators as needed. A thin tube with an inflatable balloon on the tip may be inserted into your urethra. The balloon may be inflated to help stretch your urethra open. Your urethra will be irrigated. The procedure may vary among health care providers and hospitals. What can I expect after the procedure? After the procedure, it is common to have: ?Burning pain when urinating. ?Blood in your urine. ?A need to urinate frequently. You will be asked to urinate before you leave the hospital or clinic. Your urine flow should improve within a few days. Follow these instructions at home: Medicines Take hsvl-mzn-mvcrhof and prescription medicines only as told by your health care provider. If you were prescribed an antibiotic medicine, take it as told by your health care provider. Do notstop taking the antibiotic even if you start to feel better. Ask your health care provider if the medicine prescribed to you: ?Requires you to avoid driving or using heavy machinery. ?Can cause constipation. You may need to take these actions to prevent or treat constipation: ?Take cqxj-jqd-mqhzaiz or prescription medicines. ?Eat foods that are high in fiber, such as beans, whole grains, and fresh fruits and vegetables. ?Limit foods that are high in fat and processed sugars, such as fried or sweet foods. General instructions Do not drive for 24 hours if you were given a sedative during your procedure. If you were sent home with a small, lubricated tube (catheter) to help keep your urethra open, follow your health care provider's instructions about how and when to use it. Drink enough fluid to keep your urine pale yellow. Return to your normal activities as told by your health care provider. Ask your health care provider what activities are safe for you. Keep all follow-up visits as told by your health care provider. This is important. Contact a health care provider if: Your urine is cloudy and smells bad. You develop new bleeding when you urinate. You pass blood clots when you urinate. You have pain that does not get better with medicine. You have a fever. You have swelling, bruising, or discoloration of your genital area. This includes the penis, scrotum, and inner thighs for men, and the outer genital organs (vulva) and inner thighs for women. Get help right away if: You develop new bleeding that does not stop. You cannot pass urine. Summary Urethral dilation is a procedure to stretch open (dilate) the urethra. Urethral dilation is usually done to treat narrowing of the urethra (urethral stricture), which canmake it difficult to pass urine. Ask your health care provider about changing or stopping your regular medicines before the procedure. After the procedure, it is common to have burning pain when urinating, blood in your urine, and a need to urinate frequently. This information is not intended to replace advice given to you by your health care provider. Make sure you discuss any questions you have with your health care provider. Document Released: 06/06/2016 Document Revised: 06/23/2019 Document Reviewed: 06/23/2019 [employer] Patient Education 2019 [employer]. Follow Up Care 04/28/2022 17:00:59 With:CORNELIO GATES, Nasir York, URL Address: [facility] [address], [place] [address]- When: Unknown [facility] 12-05-2022 Hospital Discharge instructions Patient Education 04/28/2022 08:55:57 Urethral Dilation Urethral Dilation Urethral dilation is a procedure to stretch open (dilate) the urethra. The urethra is the tube thatdrains urine from the bladder out of the body. In women, the urethra opens above the vaginal opening. In men, the urethra opens at the tip of the penis. Urethral dilation is usually done to treat narrowing of the urethra (urethral stricture), which can make it difficult to pass urine. Urethral dilation widens the urethra so that you can pass urine normally. Urethral dilation is done through the urethral opening. There are no incisions made during the procedure. Tell a health care provider about: Any allergies you have. All medicines you are taking, including vitamins, herbs, eye drops, creams, and wwtl-sno-ucyvlat medicines. Any problems you or family members have had with anesthetic medicines. Any blood disorders you have. Any surgeries you have had. Any medical conditions you have. Whether you are or may be . What are the risks? Generally, this is a safe procedure. However, problems may occur, including: Bleeding. Infection. A return of urethral stricture, which requires repeating the dilation procedure. Damage to the urethra, which may require reconstructive surgery. Allergic reactions to medicines. What happens before the procedure? Medicines Ask your health care provider about: Changing or stopping your regular medicines. This is especially important if you are taking diabetes medicines or blood thinners. Taking medicines such as aspirin and ibuprofen. These medicines can thin your blood. Do not take these medicines unless your health care provider tells you to take them. Taking gvux-sfe-pagcwey medicines, vitamins, herbs, and supplements. General instructions Follow instructions from your health care provider about eating or drinking restrictions. Plan to have someone take you home from the hospital or clinic. If you will be going home right after the procedure, plan to have someone with you for 24 hours. Ask your health care provider what steps will be taken to help prevent infection. These may include: ?Washing skin with a germ-killing soap. ?Taking antibiotic medicine. What happens during the procedure? An IV may be inserted into one of your veins. You will be given one or more of the following medicines: ?A local anesthetic to numb your urethral opening. This will be applied as a gel that will also lubricate the urethral opening. ?A sedative to help you relax. A thin tube with a light and camera on the end (cystoscope) will be inserted into your urethra. Your urethra will be rinsed (irrigated) with a germ-free (sterile) water solution. Narrow parts of your urethra will be stretched open using a dilator tool. Your surgeon will start with a very thin dilator, then use wider dilators as needed. A thin tube with an inflatable balloon on the tip may be inserted into your urethra. The balloon may be inflated to help stretch your urethra open. Your urethra will be irrigated. The procedure may vary among health care providers and hospitals. What can I expect after the procedure? After the procedure, it is common to have: ?Burning pain when urinating. ?Blood in your urine. ?A need to urinate frequently. You will be asked to urinate before you leave the hospital or clinic. Your urine flow should improve within a few days. Follow these instructions at home: Medicines Take pnko-nmn-tgwvjgo and prescription medicines only as told by your health care provider. If you were prescribed an antibiotic medicine, take it as told by your health care provider. Do notstop taking the antibiotic even if you start to feel better. Ask your health care provider if the medicine prescribed to you: ?Requires you to avoid driving or using heavy machinery. ?Can cause constipation. You may need to take these actions to prevent or treat constipation: ?Take yono-tox-ipgydbn or prescription medicines. ?Eat foods that are high in fiber, such as beans, whole grains, and fresh fruits and vegetables. ?Limit foods that are high in fat and processed sugars, such as fried or sweet foods. General instructions Do not drive for 24 hours if you were given a sedative during your procedure. If you were sent home with a small, lubricated tube (catheter) to help keep your urethra open, follow your health care provider's instructions about how and when to use it. Drink enough fluid to keep your urine pale yellow. Return to your normal activities as told by your health care provider. Ask your health care provider what activities are safe for you. Keep all follow-up visits as told by your health care provider. This is important. Contact a health care provider if: Your urine is cloudy and smells bad. You develop new bleeding when you urinate. You pass blood clots when you urinate. You have pain that does not get better with medicine. You have a fever. You have swelling, bruising, or discoloration of your genital area. This includes the penis, scrotum, and inner thighs for men, and the outer genital organs (vulva) and inner thighs for women. Get help right away if: You develop new bleeding that does not stop. You cannot pass urine. Summary Urethral dilation is a procedure to stretch open (dilate) the urethra. Urethral dilation is usually done to treat narrowing of the urethra (urethral stricture), which canmake it difficult to pass urine. Ask your health care provider about changing or stopping your regular medicines before the procedure. After the procedure, it is common to have burning pain when urinating, blood in your urine, and a need to urinate frequently. This information is not intended to replace advice given to you by your health care provider. Make sure you discuss any questions you have with your health care provider. Document Released: 06/06/2016 Document Revised: 06/23/2019 Document Reviewed: 06/23/2019 [employer] Patient Education 2019 [employer] Follow Up Care 02/03/2022 16:42:32 With:CORNELIO GATES, Nasir York, URL Address: [facility] [address] , [place] [address]- When: Unknown [facility] 11-16-2022 NoteOPERATIVE NOTE OPERATION DATE: 04/09/2022 PREOPERATIVE DIAGNOSIS: Colorectal screening. POSTOPERATIVE DIAGNOSIS: Normal colonoscopy to cecum. PROCEDURE: Colonoscopy to cecum. SURGEON: Link Calhoun M.D. ANESTHESIA: Monitored anesthesia care. ESTIMATED BLOOD LOSS: Zero. INDICATIONS AND CONSENT: Patient is a 66-year-old female presents for colorectal screening. Indications, risks, benefits, alternatives of proceeding with colonoscopy were explained extensively to the patient, including the risks of bleeding, colon perforation or anesthetic complications. All of her questions were answered. Informed consent was obtained. PROCEDURE: Patient brought to the operating room, placed in the left lateral decubitus position. Monitored anesthesia care was provided. Rectal exam was performed which showed no masses or blood. The scope was inserted into the anal canal. Under direct visualization was advanced. With the aid of abdominal compression, it was advanced to the cecum where cecal markings were clearly identified. There was noted to be a good prep. Upon withdrawal of the scope, mucosal surfaces were carefully examined. There were no mass lesions or polyps. No inflammatory changes or ulcerations. No significant diverticulosis. The scope was retroflexed in the anal canal. There was no significant hemorrhoidal disease. The scope was then withdrawn. Patient tolerated procedure well, was sent to recovery room in good condition. Follow up colonoscopy should be 10 years. CC: Rob Jiménez D.O.[facility] [id number] NoteChief Complaint consultation for screening colonoscopy HPI Staff 66 year old female presents on consultation from Dr. Jiménez for screening colonoscopy. Denies abdominal or rectal pain. No rectal bleeding or change in bowel habits. Denies nausea or vomiting. No unexplained weight loss. Last colonoscopy completed 2005, patient recalls this being normal. No known family history of colon cancer. History of Present Illness 66 yo female with neurogenic bladder, referred for colorectal screening; denies change in bms or blood in stools; no abdominal complaints; denies asa or NSAID use, no SBE prophylaxis; abdominal operations significant for appendectomy, c- section x 2, laparoscopy; LS cholecystectomy; LISA; last colonoscopy 20 ; no fmhx of GI malignancy or IBD; smokes daily. Review of Systems PHQ Score Initial Depression Screen Score: 0 ROS - Provider Constitutional: no fever, no sweats, no weight loss. Eyes: no glasses, no blurred vision, no visual loss. ENMT: no dentures, no hoarseness, no swallowing difficulties, no hearing loss, no ear infection(s),no nose bleeds. Cardiovascular: normal blood pressure, no chest pain, regular heartbeat, no heart murmur. Respiratory: no shortness of breath, no cough, no asthma, no wheezing. Gastrointestinal: no nausea, no vomiting, no diarrhea, no constipation, no blood in stool, no change in bowel habits, no abdominal pain, no hepatitis. Genitourinary: no kidney stones, no urine infection, no dysuria. Musculoskeletal: no pain, no weakness. Skin: no changing moles, no rash, no skin lumps. Neurologic: no seizures, no epilepsy, no headache. Psychiatric: no emotional or psychiatric problem. Heme/Lymph: no bleeding problems, no anemia, no blood clots, no transfusions. Allergy/Immunologic: no swollen lymph nodes/glands, no IV drug abuse. Other: Additional ROS info: Except as noted in the above Review of Systems and in the History of Present Illness, all other systems have been reviewed and are negative or noncontributory. Physical Exam Vitals & Measurements HR: 72(Peripheral) RR: 16 BP: 136/84 HT: 66 in HT: 167.6 cm WT: 63.5 kg WT: 139.7 lb BMI: 22.61 HEENT: normal conjunctiva, sclera clear, no scleral icterus, EOM intact, PERRLA, oral mucosa moist without lesions. Neck: trachea midline, no mass, symmetric, no thyromegaly or nodules, no adenopathy Respiratory: lungs CTA, respirations non labored. Cardiovascular: regular rate and rhythm, no murmur, no pedal edema or varicosities. Gastrointestinal: soft, non distended, no tenderness, no masses, no palpable hernias, diastasis recti no, no hepatosplenomegaly; normal bs Lymphatic: no cervical adenopathy, Musculoskeletal: normal gait, digits and nails without infection, nodes, cyanosis, clubbing. Skin: no rashes, no lesions, no ulcers, no subcutaneous nodules, induration. Psychiatric/Neuro: oriented to time, place, person, judgement normal, affect appropriate for age, insight intact, no focal deficits. Tests: review of old records completed, Discussed surgical options, risks, and possible complications with patient. Assessment/Plan 1. Screening for malignant neoplasm of colon (Z12.11: Encounter for screening for malignant neoplasm of colon) plan colonoscopy under anesthesia, informed consent obtained. 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 Medications escitalopram 10 mg Tab, 10 mg= 1 tab(s), Oral, Bedtime Estrace 0.1 mg/g Cream, 1 gm, Vaginal, As Directed, 1 refills Allergies Macrobid (Rash) cefaclor (Joint swelling, Rash) erythromycin (Joint swelling, Rash) penicillin (Rash) sulfa drugs (Nausea and vomiting) Social History Alcohol Current, Beer, Daily, 01/10/2019 Substance Abuse - Denies Substance Abuse, 03/04/2022 Tobacco 10 or more cigarettes (1/2 pack or more)/day in last 30 days, Smoker, current status unknown Tobacco Use:. Never Smokeless Tobacco Use:. Cigarettes, 0.75 per day. Started age 18.0 Years. Yes, 03/04/2022 Family History Acute myocardial infarction: Father. Diabetes mellitus type 2: Mother. Hyperlipidemia: Sister and Brother. Hypertension: Mother, Father, Si (more content not included)...[facility]:Result Comment: Electronically Signed By: GUDELIA GATES, Link Michael\Date and Time Signed: 03/04/22 16:26 [id number] Hospital Discharge instructions Patient Education 02/03/2022 16:35:49 Urethral Stricture Urethral Stricture Urethral stricture is narrowing of the tube (urethra) that carries urine from the bladder out of the body. The urethra can become narrow due to scar tissue from an injury or infection. This can make it difficult to pass urine. In women, the urethra opens above the vaginal opening. In men, the urethra opens at the tip of the penis, and the urethra is much longer than it is in women. Because of the length of the male urethra, urethral stricture is much more common in men. This condition is treated with surgery. What are the causes? In both men and women, common causes of urethral stricture include: Urinary tract infection (UTI). Sexually transmitted infection (STI). Use of a tube placed into the urethra to drain urine from the bladder (urinary catheter). Urinary tract surgery. In men, common causes of urethral stricture include: A severe injury to the pelvis. Prostate surgery. Injury to the penis. In many cases, the cause of urethral stricture is not known. What increases the risk? You are more likely to develop this condition if you: Are male. Men who have had prostate surgery are at risk of developing this condition. Use a urinary catheter. Have had urinary tract surgery. What are the signs or symptoms? The main symptom of this condition is difficulty passing urine. This may cause decreased urine flow, dribbling, or spraying of urine. Other symptom of this condition may include: Frequent UTIs. Blood in the urine. Pain when urinating. Swelling of the penis in men. Inability to pass urine (urinary obstruction). How is this diagnosed? This condition may be diagnosed based on: Your medical history and a physical exam. Urine tests to check for infection or bleeding. X-rays. Ultrasound. Retrograde urethrogram. This is a type of test in which dye is injected into the urethra and then an X-ray is taken. Urethroscopy. This is when a thin tube with a light and camera on the end (urethroscope) is used tolook at the urethra. How is this treated? This condition is treated with surgery. The type of surgery that you have depends on the severity of your condition. You may have: Urethral dilation. In this procedure, the narrow part of the urethra is stretched open (dilated) with dilating instruments or a small balloon. Urethrotomy. In this procedure, a urethroscope is placed into the urethra, and the narrow part of the urethra is cut open with a surgical blade inserted through the urethroscope. Open surgery. In this procedure, an incision is made in the urethra, the narrow part is removed, and the urethra is reconstructed. Follow these instructions at home: Take qlxv-aml-ahhkfyo and prescription medicines only as told by your health care provider. If you were prescribed an antibiotic medicine, take it as told by your health care provider. Do notstop taking the antibiotic even if you start to feel better. Drink enough fluid to keep your urine pale yellow. Keep all follow-up visits as told by your health care provider. This is important. Contact a health care provider if: You have signs of a urinary tract infection, such as: ?Frequent urination or passing small amounts of urine frequently. ?Needing to urinate urgently. ?Pain or burning with urination. ?Urine that smells bad or unusual. ?Cloudy urine. ?Pain in the lower abdomen or back. ?Trouble urinating. ?Blood in the urine. ?Vomiting or being less hungry than normal. ?Diarrhea or abdominal pain. ?Vaginal discharge, if you are female. Your symptoms are getting worse instead of better. Get help right away if: You cannot pass urine. You have a fever. You have swelling, bruising, or discoloration of your genital area. This includes the penis, scrotum, and inner thighs for men, and the outer genital organs (vulva) and inner thighs for women. You develop swelling in your legs. You have difficulty breathing. Summary Urethral stricture is narrowing of the tube (urethra) that carries urine from the bladder out of the body. The urethra can become narrow due to scar tissue from an injury or infection. This condition can make it difficult to pass urine. This condition is treated with surgery. The type of surgery that you have depends on the severity of your condition. Contact a health care provider if your symptoms get worse or you have signs of a urinary tract infection. This information is not intended to replace advice given to you by your health care provider. Make sure you discuss any questions you have with your health care provider. Document Released: 06/06/2016 Document Revised: 12/22/2018 Document Reviewed: 12/22/2018 [employer] Patient Education 2020 [employer]. Follow Up Care 10/14/2021 16:58:02 With:CORNELIO GATES, Nasir York, URL Address: [facility] [address] , [place] [address]- [phone] When:05/05/2022 Comments:[facility] 05-23-2022 Hospital Discharge instructions Patient Education 10/14/2021 08:39:39 Urethral Stricture Urethral Stricture Urethral stricture is narrowing of the tube (urethra) that carries urine from the bladder out of the body. The urethra can become narrow due to scar tissue from an injury or infection. This can make it difficult to pass urine. In women, the urethra opens above the vaginal opening. In men, the urethra opens at the tip of the penis, and the urethra is much longer than it is in women. Because of the length of the male urethra, urethral stricture is much more common in men. This condition is treated with surgery. What are the causes? In both men and women, common causes of urethral stricture include: Urinary tract infection (UTI). Sexually transmitted infection (STI). Use of a tube placed into the urethra to drain urine from the bladder (urinary catheter). Urinary tract surgery. In men, common causes of urethral stricture include: A severe injury to the pelvis. Prostate surgery. Injury to the penis. In many cases, the cause of urethral stricture is not known. What increases the risk? You are more likely to develop this condition if you: Are male. Men who have had prostate surgery are at risk of developing this condition. Use a urinary catheter. Have had urinary tract surgery. What are the signs or symptoms? The main symptom of this condition is difficulty passing urine. This may cause decreased urine flow, dribbling, or spraying of urine. Other symptom of this condition may include: Frequent UTIs. Blood in the urine. Pain when urinating. Swelling of the penis in men. Inability to pass urine (urinary obstruction). How is this diagnosed? This condition may be diagnosed based on: Your medical history and a physical exam. Urine tests to check for infection or bleeding. X-rays. Ultrasound. Retrograde urethrogram. This is a type of test in which dye is injected into the urethra and then an X-ray is taken. Urethroscopy. This is when a thin tube with a light and camera on the end (urethroscope) is used tolook at the urethra. How is this treated? This condition is treated with surgery. The type of surgery that you have depends on the severity of your condition. You may have: Urethral dilation. In this procedure, the narrow part of the urethra is stretched open (dilated) with dilating instruments or a small balloon. Urethrotomy. In this procedure, a urethroscope is placed into the urethra, and the narrow part of the urethra is cut open with a surgical blade inserted through the urethroscope. Open surgery. In this procedure, an incision is made in the urethra, the narrow part is removed, and the urethra is reconstructed. Follow these instructions at home: Take qgnk-opd-ruwtuwh and prescription medicines only as told by your health care provider. If you were prescribed an antibiotic medicine, take it as told by your health care provider. Do notstop taking the antibiotic even if you start to feel better. Drink enough fluid to keep your urine pale yellow. Keep all follow-up visits as told by your health care provider. This is important. Contact a health care provider if: You have signs of a urinary tract infection, such as: ?Frequent urination or passing small amounts of urine frequently. ?Needing to urinate urgently. ?Pain or burning with urination. ?Urine that smells bad or unusual. ?Cloudy urine. ?Pain in the lower abdomen or back. ?Trouble urinating. ?Blood in the urine. ?Vomiting or being less hungry than normal. ?Diarrhea or abdominal pain. ?Vaginal discharge, if you are female. Your symptoms are getting worse instead of better. Get help right away if: You cannot pass urine. You have a fever. You have swelling, bruising, or discoloration of your genital area. This includes the penis, scrotum, and inner thighs for men, and the outer genital organs (vulva) and inner thighs for women. You develop swelling in your legs. You have difficulty breathing. Summary Urethral stricture is narrowing of the tube (urethra) that carries urine from the bladder out of the body. The urethra can become narrow due to scar tissue from an injury or infection. This condition can make it difficult to pass urine. This condition is treated with surgery. The type of surgery that you have depends on the severity of your condition. Contact a health care provider if your symptoms get worse or you have signs of a urinary tract infection. This information is not intended to replace advice given to you by your health care provider. Make sure you discuss any questions you have with your health care provider. Document Released: 06/06/2016 Document Revised: 12/22/2018 Document Reviewed: 12/22/2018 [employer] Patient Education 2020 [employer]. Follow Up Care 09/18/2021 14:15:26 With:CORNELIO GATES, Nasir R, URL Address: [facility] [address] [place] [address]- When: Unknown [facility] 04-27-2022 Hospital Discharge instructions Patient Education 09/18/2021 13:17:33 Urethral Dilation Urethral Dilation Urethral dilation is a procedure to stretch open (dilate) the urethra. The urethra is the tube thatdrains urine from the bladder out of the body. In women, the urethra opens above the vaginal opening. In men, the urethra opens at the tip of the penis. Urethral dilation is usually done to treat narrowing of the urethra (urethral stricture), which can make it difficult to pass urine. Urethral dilation widens the urethra so that you can pass urine normally. Urethral dilation is done through the urethral opening. There are no incisions made during the procedure. Tell a health care provider about: Any allergies you have. All medicines you are taking, including vitamins, herbs, eye drops, creams, and yeme-hrr-rmrflcj medicines. Any problems you or family members have had with anesthetic medicines. Any blood disorders you have. Any surgeries you have had. Any medical conditions you have. Whether you are or may be . What are the risks? Generally, this is a safe procedure. However, problems may occur, including: Bleeding. Infection. A return of urethral stricture, which requires repeating the dilation procedure. Damage to the urethra, which may require reconstructive surgery. Allergic reactions to medicines. What happens before the procedure? Medicines Ask your health care provider about: Changing or stopping your regular medicines. This is especially important if you are taking diabetes medicines or blood thinners. Taking medicines such as aspirin and ibuprofen. These medicines can thin your blood. Do not take these medicines unless your health care provider tells you to take them. Taking ejwr-jin-lzwtgsd medicines, vitamins, herbs, and supplements. General instructions Follow instructions from your health care provider about eating or drinking restrictions. Plan to have someone take you home from the hospital or clinic. If you will be going home right after the procedure, plan to have someone with you for 24 hours. Ask your health care provider what steps will be taken to help prevent infection. These may include: ?Washing skin with a germ-killing soap. ?Taking antibiotic medicine. What happens during the procedure? An IV may be inserted into one of your veins. You will be given one or more of the following medicines: ?A local anesthetic to numb your urethral opening. This will be applied as a gel that will also lubricate the urethral opening. ?A sedative to help you relax. A thin tube with a light and camera on the end (cystoscope) will be inserted into your urethra. Your urethra will be rinsed (irrigated) with a germ-free (sterile) water solution. Narrow parts of your urethra will be stretched open using a dilator tool. Your surgeon will start with a very thin dilator, then use wider dilators as needed. A thin tube with an inflatable balloon on the tip may be inserted into your urethra. The balloon may be inflated to help stretch your urethra open. Your urethra will be irrigated. The procedure may vary among health care providers and hospitals. What can I expect after the procedure? After the procedure, it is common to have: ?Burning pain when urinating. ?Blood in your urine. ?A need to urinate frequently. You will be asked to urinate before you leave the hospital or clinic. Your urine flow should improve within a few days. Follow these instructions at home: Medicines Take osss-obx-fjjlqnx and prescription medicines only as told by your health care provider. If you were prescribed an antibiotic medicine, take it as told by your health care provider. Do notstop taking the antibiotic even if you start to feel better. Ask your health care provider if the medicine prescribed to you: ?Requires you to avoid driving or using heavy machinery. ?Can cause constipation. You may need to take these actions to prevent or treat constipation: ?Take ynis-fwp-axrmyka or prescription medicines. ?Eat foods that are high in fiber, such as beans, whole grains, and fresh fruits and vegetables. ?Limit foods that are high in fat and processed sugars, such as fried or sweet foods. General instructions Do not drive for 24 hours if you were given a sedative during your procedure. If you were sent home with a small, lubricated tube (catheter) to help keep your urethra open, follow your health care provider's instructions about how and when to use it. Drink enough fluid to keep your urine pale yellow. Return to your normal activities as told by your health care provider. Ask your health care provider what activities are safe for you. Keep all follow-up visits as told by your health care provider. This is important. Contact a health care provider if: Your urine is cloudy and smells bad. You develop new bleeding when you urinate. You pass blood clots when you urinate. You have pain that does not get better with medicine. You have a fever. You have swelling, bruising, or discoloration of your genital area. This includes the penis, scrotum, and inner thighs for men, and the outer genital organs (vulva) and inner thighs for women. Get help right away if: You develop new bleeding that does not stop. You cannot pass urine. Summary Urethral dilation is a procedure to stretch open (dilate) the urethra. Urethral dilation is usually done to treat narrowing of the urethra (urethral stricture), which canmake it difficult to pass urine. Ask your health care provider about changing or stopping your regular medicines before the procedure. After the procedure, it is common to have burning pain when urinating, blood in your urine, and a need to urinate frequently. This information is not intended to replace advice given to you by your health care provider. Make sure you discuss any questions you have with your health care provider. Document Released: 06/06/2016 Document Revised: 06/23/2019 Document Reviewed: 06/23/2019 [employer] Patient Education 2020 [employer]. Follow Up Care 08/29/2021 15:32:29 With:Nasir NANCE MD, URL Address: [facility] [address] [place] [address]- Business (1) When: Unknown [facility] Evaluation + Plan note Future Appointments Appointment Date:10/14/2021 03:00:00 PM Scheduled Provider:Nasir NANCE MD Location:[facility] Appointment Type:URO Office Visit [facility] Evaluation + Plan note Future Appointments Appointment Date:10/14/2021 03:00:00 PM Scheduled Provider:Nasir NANCE MD Location:[facility] Appointment Type:URO Office Visit Diagnostic Tests Pending * [facility]ments Appointment Date:02/03/2022 03:30:00 PM Scheduled Provider:Nasir NANCE MD Location:[facility] Appointment Type:URO Office Visit [facility] evaluation + Plan note Future Appointments Appointment Date:04/28/2022 03:30:00 PM Scheduled Provider:Nasir NANCE MD Location:[facility] Appointment Type:URO Office Visit [facility] evaluation + Plan note Future Appointments Appointment Date:07/28/2022 03:15:00 PM Scheduled Provider:Nasir NANCE MD Location:[facility] Appointment Type:URO Office Visit [facility] evaluation + Plan note Future Appointments Appointment Date:08/11/2022 11:45:00 AM Scheduled Provider:Nasir NANCE MD Location:[facility] Appointment Type:URO Office Visit [facility] evaluation + Plan note Future Appointments Appointment Date:11/17/2022 03:15:00 PM Scheduled Provider:Nasir NANCE MD Location:[facility] Appointment Type:URO Office Visit [facility] [place] Other [facility] general Narrative - Reported* Type Description Date Medical History Other specified hypothyroidism Medical History Autoimmune thyroiditis Medical History Squamous cell carcinoma Medical History Lumbar spondylosis Medical History Endometriosis Medical History Elevated TSH Medical History Elevated blood pressure (not hyp ertension) Medical History Arthralgia of left acromioclavic ular joint Medical History CORTNEY (generalized anxiety disorde r) Medical History Cystitis Medical History Fatigue Medical History Malaise Medical History Urinary retention Medical History Nicotine dependence, cigarettes, uncomplicated Surgical History COLONOSCOPY 2021 Surgical History LISA/ RIGHT SO 1989 Surgical History X2 Surgical History LEFT SO Surgical History LYSIS OF ADHESIONS Surgical History APPENDECTOMY 1992 Surgical History CYSTOSCOPY 2001 Surgical History LAPAROSCOPY 2003,2006 Surgical History COLONOSCOPY 2006 Surgical History EGD 2006 Hospitalization History SEE SURGICAL HX [facility] Guided Interventions Other Hospital course Narrative No data available for this section [facility] Discharge instructions No data available for this section [facility] No data available for this section [facility] Purpose Family History No Family History Records FoundNo Family History Records Found Advance Directives No Advanced Directives Records FoundNo Advanced Directives Records Found Additional Source Comments Care Team (unrecognized sect ion and content) Personnel Name: TINO ROB MCGUIRE Address: [facility] Personnel Name: TINO ROB MCGUIRE Address: Address: [facility] Personnel Name: TINO MCGUIRE ROB Address: Address: [address] [place] [address] Personnel Name: TINO DO ROB Address: Address: [address] [place] [address] Personnel Name: ROB JIMÉNEZ DO Address: Address: [address] [place] [address] INFORMATION SOURCE (unrecogn ized section and content) DATE CREATED AUTHOR 10/01/2022 [facility] DATE CREATED AUTHOR AUTHOR'S ORGANIZ ATION 01/28/2023 [facility] REASON FOR VISIT (unrecogniz ed section and content) weight lossRe-Send RefillUpd ate Demographics - Personal InfoSinuses- [phone] InformationLab/mamm results FOR RECORDS PERTAINING TO PATIENTS WHO ARE OR HAVE BEEN ENROLLED IN A CHEMICAL DEPENDENCY/SUBSTANCEABUSE PROGRAM, SOME INFORMATION MAY BE OMITTED. This clinical summary was aggregated from multiple sources. Caution should be exercised in using it in the provision of clinical care. This summary normalizes information from multiple sources, and as a consequence, information in this document may materially change the coding, format and clinical context of patient data. In addition, data may be omitted in some cases. CLINICAL DECISIONS SHOULD BE BASED ON THE PRIMARY CLINICAL RECORDS. [employer] provides no warranty or guarantee of the accuracy or completeness of information in this document.
== END 2023-04-30 08:46 | disposition home or self-care (01) ==
LOC: LAB 08:45
PROVIDERS: PCP Internal Medicine; Visit Provider Internal Medicine
DX: Z12.31 Encounter for screening mammogram for malignant neoplasm of breast (principal); F17.210 Nicotine dependence, cigarettes, uncomplicated; R05.3 Chronic cough; Z00.00 Encounter for general adult medical examination without abnormal findings; Z80.3 Family history of malignant neoplasm of breast; Z80.41 Family history of malignant neoplasm of ovary; Z80.1 Family history of malignant neoplasm of trachea, bronchus and lung
CPT/HCPCS: 36415; 71046; 77063; 77067; 80053; 85025

== ENCOUNTER 2024-01-27 15:43 | Outpatient (OUT) | payer OTHER, SELFPAY ==
--- NOTE | 2024-01-27 | XR_ITS ---
The [address] [address] Patient Name: MIKE RIVERA MRN: [id number] date: 1955 Sex: F Assigned Patient Location: [facility] Current Patient Location: Accession/Order Number: [id number] Exam Date: 01/27/2024 15:58 Report Date: 01/28/2024 07:59 At the request of: CHANDA SEGUNDO Procedure: XR cervical spine w flex/ext EXAMINATION: XR cervical spine w flex/ext HISTORY: Neck pain, Spondylosis of cervical spine ; chronic neck pain COMPARISON: No relevant comparison available. FINDINGS: BONES: Reversal of normal lordotic curvature of the cervical spine. Minimal grade 1 retrolisthesis of C3 on 4, C4 on C5, C5 on C6. 5 mm (grade 2) anterior listhesis of C7 on T1. No change in alignment during flexion and extension. No fracture. Multilevel moderate degenerative facet arthropathy. DISC SPACES: Marked narrowing C2-3 through C6-7. PARASPINOUS: Negative. No paraspinous abnormality is seen. OTHER: Negative. XR/XR cervical spine w flex/ext IMPRESSION: 1. Marked degenerative changes of cervical spine. 2. No appreciable acute abnormality. Electronically authenticated by: CHAO HILLIARD Date: 01/28/2024 07:59
--- OUTSIDE RECORDS SUMMARY | 2024-01-27 16:02 | XMS_ITS | CCD ---
Author Organization [facility] Care Team Providers Care Belt Lacer Name Role Phone ROB JIMÉNEZ Primary Care Physician [phone] KENDALL ELLIOTT Attending Unavailable SABIHA ., KENDALL Consulting Unavailable SABIHA ., KENDALL Admitting Unavailable TINO, DR ARMAS Primary Care Unavailable NILL ., DR MAZA Admitting Unavailable NILL ., DR MAZA Attending Unavailable NILL ., DR MAZA Consulting Unavailable BALL, DR ARMAS Primary Care Unavailable KATHY, HARRY [...] Unavailable BALL, DR ARMAS Primary Care Unavailable Tino, Rob Unavailable Orly Pedersen Unavailable Nasir NANCE Attending Unavailable Nasir NANCE Attending Unavailable Nasir NANCE Attending Unavailable Allergies Allergy Classification Reported Allergen(s) Allergy Type Date of Onset Reaction(s) Facility Cephalosporins (antibiotic) (1 source) Cefaclor; Translations: [cefaclor] Drug Allergy Joint swelling (finding), Cutaneous eruption (morphologic abnormality) [facility] Macrolides (antibiotic) (1 source) Erythromycin; Translations: [erythromycin] Drug Allergy Joint swelling (finding), Cutaneous eruption (morphologic abnormality) [facility] NITROFURANTOIN, MACROCRYSTALS / Nitrofurantoin, Monohydrate (1 source) NITROFURANTOIN, MACROCRYSTALS / Nitrofurantoin, Monohydrate; Translations: [nitrofurantoin] Drug Allergy Eruption of skin (disorder) [facility] Penicillins (antibiotic) (1 source) Penicillin; Translations: [penicillin] Drug Allergy Cutaneous eruption (morphologic abnormality) [facility] Sulfonamides (antibiotic) (1 source) Sulfonamides (Antibiotic); Translations: [sulfa drugs] Drug Allergy Nausea and vomiting (disorder) [facility] (9 sources) Cefaclor; Translations: [cefaclor] Drug Allergy Joint swelling (finding), Cutaneous eruption (morphologic abnormality) [facility] (18 sources) Erythromycin; Translations: [erythromycin] Drug Allergy Joint swelling (finding), Cutaneous eruption (morphologic abnormality) [facility] (13 sources) Penicillin; Translations: [penicillin] Drug Allergy Cutaneous eruption (morphologic abnormality) [facility] (9 sources) Sulfonamides (Antibiotic); Translations: [sulfa drugs] Drug allergy Nausea and vomiting (disorder) [facility] (16 sources) NITROFURANTOIN, MACROCRYSTALS / Nitrofurantoin, Monohydrate; Translations: [nitrofurantoin] Drug Allergy Eruption of skin (disorder) [facility] (5 sources) Cefaclor Drug Allergy 10-17-19 15 Unknown [facility] (2 sources) Erythromycin Drug Allergy 10-17-19 15 Unknown Reaction [facility] (1 source) Nitrofurantoin Drug Allergy 04-03-20 22 [facility] (2 sources) Penicillins Drug allergy (disorder) 10-17-19 15 Unknown Reaction [facility] (1 source) Sulfonamides (Antibiotic) Drug allergy (disorder) [facility] (10 sources) Cephalexin Drug Allergy 10-12-19 24 Unknown, Unknown Reaction [facility] (9 sources) Substance with sulfonamide structure and antibacterial mechanism of action (substance) Drug allergy Unknown [facility] (6 sources) Substance with penicillin structure and antibacterial mechanism of action (substance) Drug allergy Unknown [facility] (6 sources) Ceclor *CEPHALOSPORINS* Propensity to adverse reactions 11-17-19 15 Unknown [facility] (1 source) patient allergy list reviewed by nurse or physicia Propensity to adverse reactions 06-30-19 18 Comment:Done [facility] (1 source) Cephalosporins (Antibiotic) Allergy to substance 10-12-19 24 Unknown Reaction [facility] (1 source) Nitrofurantoin Drug Allergy 10-12-19 24 Unknown Reaction [facility] (1 source) Sulfonamides (Antibiotic) Allergy to substance 10-12-19 Unknown Reaction [facility] Medications Current Medications Medication Drug Class(es) Dates Sig (Normalized) Sig (Original) 0.4 ML cyclosporine 0.5 MG/ML Ophthalmic Suspension [Restasis] (3 sources) Start: 07-28-2022 Restasis 0.05% Emulsion Refill(s) 0 Start Date: 07/28/22 Status: Ordered amLODIPine 2.5 mg oral tablet (8 sources) Dihydropyridine Calcium Channel Yosef Start: 11-20-2023 take 1 tablet by mouth once daily amLODIPine 2.5 mg Tab TAKE ONE TABLET BY MOUTH ONCE DAILY Start Date: 11/20/23 Status: Ordered Start: 10-09-2023 take 2.5 mg by mouth once katie y Amlodipine Active 2.5 MG PO Daily October 09, 2023 12:00am Start: 03-27-2023 take 1 tablet by cedric th every twenty-four hours amLODIPine Besylate 2.5 MG 1 tablet Orally Once a day Mar, Active calcium carbonate 1500 mg oral tablet (4 sources) Start: 04-28-2022 take 1 mg by mouth once daily calcium (as carbonate) 600 mg oral tablet mg tab(s), Oral, Daily, Refills(s) 0 Start Date: 04/28/22 Status: Ordered cycloSPORINE 0.5 mg/ml ophthalmic suspension (6 sources) Calcineurin Inhibitor Immunosuppressant Start: 10-09-2023 take 0.05 drop(s) into the eye(s) every twelve hours Cyclosporine (Restasis Multidose) 0.05 % drops Active 1 DROPS EYE-BOTH Every 12 hours October 09, 2023 12:00am take 1 drop(s) into the eye(s) twice daily Restasis 0.05 % 1 drop into affected eye Ophthalmic Twice a day Active doxycycline hyclate 100 mg oral tablet (2 sources) Tetracycline-class Drug Start: 11-20-2023 take 1 tablet by mouth twice daily doxycycline hyclate 100 mg Tab 100 mg = 1 tab(s), Oral, BID, # 20 tab(s), Refills(s) 0, Pharmacy: [facility], 167, cm, 11/20/23 9:39:00 EDT, Height/Length Dosing, 60, kg, 11/20/23 9:39:00 EDT, Weight Dosing Start Date: 11/20/23 Status: Ordered Start: 07-28-2022 End: 08-07-2022 take 1 capsule by mouth twice daily doxycycline hyclate 100 mg Cap 100 mg = 1 cap(s), Oral, BID, X 10 day(s), # 20 cap(s), Refills(s) 0, Pharmacy: [facility], 167, cm, 07/28/22 15:34:00 EST, Height/Length [...] Vaginal Cream (2 sources) Start: 01-10-2019 Estrace Vagina l Cream See Instructions, 1 gram Vaginal MWF, Refills(s) 0 Start Date: 01/10/19 Status: Ordered estradiol 0.1 mg/ml vaginal cream (7 sources) Estrogen Start: 09-20-2021 Estrace 0.1 mg /g Cream [...] Start Date: 09/20/21 Status: Ordered estrogens, conjugated (group home) 0.625 mg/ml vaginal cream (6 sources) Estrogen Start: 10-09-2023 Conjugated Est rogens (Premarin) 0.625 mg/gram cream Active 0.625 MG VAGINAL 3 Times a week October 09, 2023 12:00am Premarin 0.625 M G/GM three times weekly Vaginal Active Premarin 0.625 M G/GM three times weekly Vaginal Active Hyoscyamine / Methenamine / Methylene blue / phenyl salicylate / Sodium Phosphate, Monobasic (3 sources) Oxidation-Reduction Agent Start: 01-10-2019 Urelle 1 tab(s), Oral, Refill(s) 0, prn Start Date: 01/10/19 Status: Ordered levothyroxine sodium 0.05 mg oral tablet (15 sources) l-Thyroxine Start: 10-09-2023 take 50 ug by mouth once daily Levothyroxine Active 50 MCG PO Daily October 09, 2023 8:26am Start: 07-30-2023 End: 10-09-2023 Levothyroxine Discontinued 0 .ROUTE .COMPLEX 90 July 30, 2023 9:39am October 09, 2023 8:27am TAKE 1 TABLET IN THE MORNING ON AN EMPTY STOMACH ONCE DAILY Start: 07-30-2023 End: 07-30-2023 take 50 ug by mouth once daily Levothyroxine Discontin ued 50 MCG PO Daily July 30, 2023 1:00am July 30, 2023 9:39am Start: 08-21-2022 take 1 tablet by cedric th once daily in the morning Levothyroxine Sodium 50 MCG 1 tablet in the morning on an empty stomach1 Orally Once a day Jul, Active Start: 07-28-2022 take 1 tablet by cedric th once daily in the morning Levothyroxine Sodium 50 MCG 1 tablet in the morning on an empty stomach1 Orally Once a day Jul, Active Vitamin D 1000 intl units (25 mcg) Tab (4 sources) Start: 04-28-2022 take 1 tablet by mouth once daily Vitamin D 1000 intl units (25 mcg) Tab mcg tab(s), Oral, Daily, Refills(s) 0 Start Date: 04/28/22 Status: Ordered Completed/Discontinued Medications Medication Drug Class(es) Dates Sig (Normalized) Sig (Original) losartan potassium 25 mg oral tablet (6 sources) Angiotensin 2 Receptor Yosef Start: 10-09-2023 End: 10-12-2023 take 25 mg by mouth once daily Losartan Discontinued 25 MG PO Daily October 09, 2023 12:00am October 12, 2023 3:43pm Start: 06-14-2023 take 1 tablet by cedric th every twenty-four hours Losartan Potassium 25 MG 1 tablet Orally Once a day for 90 days May, Active Start: 10-22-2022 take 1 tablet by cedric th every twenty-four hours Losartan Potassium 25 MG 1 tablet Orally Once a day for 30 days September, Active Problems Active Problems Problem Classification Problem Date Documented Date Episodic/Chronic Anxiety disorders (20 sources) Anxiety; Translations: [Generalized anxiety disorder] 01-10-2019 Chronic Chronic obstructive pulmonary disease and bronchiectasis (9 sources) Mucopurulent chronic bronchitis; Translations: [Mucopurulent chronic bronchitis] Chronic Coma; stupor; and brain damage (1 source) Somnolence; Translations: [Somnolence] Episodic Diabetes mellitus without complication (13 sources) Impaired fasting glycemia; Translations: [Impaired fasting glucose] Episodic Endometriosis (10 sources) Endometriosis, unspecified; Translations: [Endometriosis] Chronic Essential hypertension (17 sources) Essential hypertension; Translations: [Essential (primary) hypertension] Chronic Genitourinary symptoms and ill-defined conditions (5 sources) Stress incontinence (female) (male); Translations: [Genuine stress incontinence] Onset: 04-28-2022 Chronic Genitourinary symptoms and ill-defined conditions (20 sources) Incomplete emptying of bladder; Translations: [Retention of urine] Onset: 05-25-1957 09-18-2021 Episodic Headache; including migraine (7 sources) Migraine with aura; Translations: [Migraine with aura, not intractable, without status migrainosus] Chronic Headache; including migraine (1 source) Headache; Translations: [Headache, unspecified] Episodic Inflammatory diseases of female pelvic organs (1 source) Female pelvic peritoneal adhesions; Translations: [Female pelvic peritoneal adhesions (postinfective)] Episodic Malaise and fatigue (19 sources) Malaise; Translations: [Other malaise] Onset: 11-16-2014 Episodic Mood disorders (2 sources) Depression; Translations: [Dysthymia] Onset: 05-25-1959 Chronic Nonmalignant breast conditions (1 source) Fibrocystic disease of breast; Translations: [Diffuse cystic mastopathy of unspecified breast] Chronic Nutritional deficiencies (10 sources) Vitamin D deficiency; Translations: [Vitamin D deficiency, unspecified] Chronic Other circulatory disease (15 sources) Elevated blood-pressure reading without diagnosis of hypertension; Translations: [Elevated blood-pressure reading, without diagnosis of hypertension] 02-21-2022 Episodic Other diseases of bladder and urethra (5 sources) Neurogenic dysfunction of the urinary bladder; Translations: [Neuromuscular dysfunction of bladder, unspecified] Onset: 09-18-2021 Chronic Other diseases of bladder and urethra (9 sources) Neurogenic bladder 09-18-2021 Chronic Other diseases of bladder and urethra (1 source) Neuromuscular dysfunction of bladder, unspecified; Translations: [NEUROMUSCULR DYSFNCTION BLADDER UNS] Onset: 04-23-2022 Chronic Other female genital disorders (1 source) Dyspareunia; Translations: [Dyspareunia] Onset: 03-28-2008 Chronic Other hereditary and degenerative nervous system conditions (1 source) Cerebellar ataxia; Translations: [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 Other non-epithelial cancer of skin (10 sources) Squamous cell carcinoma; Translations: [Squamous cell carcinoma of skin, unspecified] Episodic Other non-traumatic joint disorders (10 sources) Shoulder joint pain; Translations: [Pain in left shoulder] Episodic Other screening for suspected conditions (not mental disorders or infectious disease) (20 sources) Screening for malignant neoplasm of colon done; Translations: [Encounter for screening for malignant neoplasm of colon] Onset: 03-03-2022 Episodic Other upper respiratory disease (4 sources) Epistaxis; Translations: [EPISTAXIS] Onset: 09-28-2022 Episodic Other upper respiratory infections (1 source) Acute sinusitis; Translations: [Acute sinusitis, unspecified] Episodic Residual codes; unclassified (1 source) Tobacco user; Translations: [Tobacco use] Episodic Spondylosis; intervertebral disc disorders; other back problems (12 sources) Lumbar spondylosis; Translations: [Spondylosis without myelopathy or radiculopathy, lumbar region] Chronic Substance-related disorders (20 sources) Smoker; Translations: [Nicotine dependence, cigarettes, uncomplicated] Onset: 05-25-1957 09-18-2021 Chronic Comment on above: Added secondary to d ocumentation in Social History. 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; Translations: [Other specified hypothyroidism] Chronic Unclassified (5 sources) Adhesion of pelvis 02-21-2022 Unclassified (5 sources) Body mass index 20-24 - normal 03-04-2022 Unclassified (5 sources) Patient encounter status 03-04-2022 Unclassified (1 source) CONTACT W/AND (SUSP) EXPOS COVID-19; Translations: [CONTACT W/AND (SUSP) EXPOS COVID-19] Onset: 04-08-2022 Urinary tract infections (15 sources) Chronic cystitis; Translations: [Other chronic cystitis [...] Results Test Name Value Interpretation Reference Range Facility Ambulatory Visit Summaryon 0 11-20-2023 Ambulatory Visit Summary Ambulatory Visit Summary MIKE RIVERA Segundo :1955 Visit Date:11/20/2023 Ambulatory Visit Instructions Your Diagnosis Postinfective urethral stricture of female Cystitis with hematuria Neurogenic bladder Your Care Team Attending Physician - Nasir NANCE MD Primary Care Physician - ROB JIMÉNEZ DO This Is Your Medications List doxycycline (doxycycline hyclate 100 mg Tab) estradiol topical (Estrace 0.1 mg/g Cream) Contact prescribing physician if questions or concerns amlodipine (amLODIPine 2.5 mg Tab) calcium carbonate (calcium (as carbonate) 600 mg oral tablet) cholecalciferol (Vitamin D 1000 intl units (25 mcg) Tab) cycloSPORINE ophthalmic (Restasis 0.05% Emulsion) levothyroxine (levothyroxine 50 mcg (0.05 mg) Tab) Procedures Performed Urethral dilatation (11/20/2023), Dilation of urethra (08/11/2022), Dilation of urethra (02/03/2022), UD - Urethral dilatation (01/10/2019), Colonoscopy (2005), EGD - Esophagogastroduodenoscopy (2005), Urodynamics (08/21/2003), Appendectomy, Bilateral salpingo-oophorectomy, Caesarean section, section, Cholecystectomy, Colonoscopy abnormal, Cystoscopy, dilation of uretheral stricture, Laparoscopy, Lysis of adhesions, skin cancer removal, LISA - Total abdominal hysterectomy. Discharge Vitals Heart Rate (Peripheral) 94 Respiratory Rate 16 Blood Pressure 134/76 Height 167 cm Height 66 in Weight 60 kg Weight 132 lb BMI 21.51 What to do next Scheduled Follow-Up Appointments Thursday 2:45 PM EDT With: CORNELIO GATES, Nasir [place] Where: [facility] Urology Office/Clinic Noteon 11-20-2023 Urology Office/Clinic Note Urology Office/Clinic Note Chief Complaint 3m UD HPI Staff 3m UD DX: Urethral Stricture, Chronic Cystitis & Neurogenic Bladder *Estradiol Cream 2x/wk CIC 3-4x/day-denies concerns. Mild Lower back pain. Denies pain/burning. Occasional visible blood, last noticed 1wk ago. Very small amount. Believes infection is just starting, states she is ok with proceeding with UD. History of Present Illness Tests reviewed: reviewed [...] PHQ Score Initial Depression Screen Score: 0 SCORE ROS - Provider Constitutional: denies weight loss, [...] HPI. Physical Exam Vitals & Measurements HR: 94(Peripheral) RR: 16 BP: 134/76 HT: 66 in HT: 167 cm WT: 60 kg WT: 132 lb BMI: 21.51 General Appearance: alert , no acute distress, well nourished, well developed female. Procedure Operative Information Anesthesia Type: Local Procedure: [...] Tight The Urethra was dilated to: 20-30 Uzbek with sounds. Specimens Removed: None Postoperative Information Patient is discharged home. Follow up arranged. Assessment/Plan 1. Postinfective urethral stricture of female (N35.12: Postinfective urethral stricture, not elsewhere classified, female) Latest IO UD 08/11/22. Pt wishes to have UD done today which was done without complications. Tolerated well. Dilated from 20-30Fr. Follow up in 3 mos for repeat UD or sooner if needed. 2. Cystitis with hematuria (N30.91: Cystitis, unspecified with hematuria) Estradiol cream 2x/wk. UA today shows positive nitrates and small leuks. Last noticed gross hematuria 1 wk ago, very small amount. Believes infection is just starting and wishes to proceed with UD. Pt has an extensive allergy list so we will start Doxycycline. -Will start Doxycycline 100mg bid x 10 days 3. Neurogenic bladder (N31.9: Neuromuscular dysfunction of bladder, unspecified) CIC 3-4x per day. Pt to continue regimen. Follow-up With When Contact Information CORNELIO GATES, Nasir [place], [address] [place] [address]- Additional Instructions: 3 mos w/ IO UD Patient Education Urethral Dilation I, Shannan Ca, personally scribed for Dr. Nance on 11/20/2023 10:16:25. . Documentation recorded by the scribe, Shannan Ca, accurately reflects the services(s) I performed and decisions made by me. Authenticated by Dr. Nance on 11/20/2023 10:19:30. Problem List/Past Medical History Ongoing Anxiety Blood pressure elevated without history of HTN BMI 22.0-22.9, adult Chronic cystitis Cystitis with hematuria CORTNEY (generalized anxiety disorder) Gross hematuria Incomplete bladder emptying Neurogenic bladder Nocturia Pelvic adhesions Postinfective urethral stricture of female Screening for malignant neoplasm of colon Smoker Stress incontinence Urinary retention Weak urinary stream Historical No qualifying data Procedure/Surgical History Urethral dilatation (11/20/2023), Dilation of urethra (08/11/2022), Dilation of urethra (02/03/2022), UD - Urethral dilatation (01/10/2019), Colonoscopy (2005), EGD - Esophagogastroduodenoscopy (2005), Urodynamics (08/21/2003), Appendectomy, Bilateral salpingo-oophorectomy, Caesarean section, section, Cholecystectomy, Colonoscopy abnormal, Cystoscopy, dilation of uretheral stricture, Laparoscopy, Lysis of adhesions, skin cancer removal, LISA - Total abdominal hysterectomy. Medications amLODIPine 2.5 mg Tab calcium (as carbonate) 600 mg oral tablet, Oral, Daily Estrace 0.1 mg/g Cream, 1 gm, Vaginal, As Directed, 1 refills levothyroxine 50 mcg (0.05 mg) Tab Restasis 0.05% Emulsion Vitamin D 1000 intl units (25 mcg) Tab, Oral, Daily Allergies Macrobid (Rash) cefaclor (Joint swelling, Madhu (more content not included)... Normal [facility] Comment on above: Result Comment: Electronically Signed By : Nasir NANCE MD\.br\Date and Time Signed: 11/20/23 10:19 EDT\.br\Electronically Co-Signed By: Shannan Ca.br\Date and Time Co-Signed: 11/20/23 10:16 EDT T3, TOTAL (TRIIODOTHYRONINE) on 05-23-2022 T3, TOTAL 85 ng/dL Normal 71-180 [facility] Comment on above: Performed By: #### [id number] #### [facility] [address] [address] [address] Ivana Gotti FREE T4on 05-22-2022 Free T4 [Mass/Vol] 0.69 ng/dL Critically low 0.76-1.46 [facility] Comment on above: Performed By: #### FT4 #### [facility] [address] [place] [address] Dr. Ivana Gotti TSHon 05-22-2022 TSH 4.342 uIU/mL Critically high 0.358-3.740 [facility] Comment on above: Performed By: #### TSH #### [facility] [address] [place] [address] Dr. Ivana Gotti Covid-19 PCR ([facility])on 03-25 SARS-CoV-2 (COVID-19) RNA ALICIA+probe Ql (Unsp spec) Not detected Normal NOT DETECTED [facility] Comment on above: Result Comment: This test is not yet dolly roved or cleared by the [place] FDA. When there are no FDA-approved or cleared tests available, and other criteria are met, FDA can make tests available under an emergency access mechanism called an Emergency Use Authorization (EUA). The EUA for this test is supported by the Re[employer] Stri[employer] of Health and Human Service's (HHS's) declaration [...] consistent with SARS-CoV-2. Performed By: #### C VDTB #### [facility] [address] [place] [address] Dr. Ivana Gotti CBC AUTO DIFFon 02-28-2022 BASO # 0.1 103/ul Normal 0.0-0.1 [facility] Comment on above: Performed By: #### CBC #### [facility] [address] [place] [address] Dr. Ivana Gotti Basophils/100 WBC (Bld) 0.7 % Normal 0.2-2.0 [facility] Comment on above: Performed By: #### CBC #### [facility] [address] [place] [address] Dr. Ivana Gotti EO # 0.3 103/ul Normal 0.0-0.7 [facility] Comment on above: Performed By: #### CBC #### [facility] [address] [place] [address] Dr. Ivana Gotti Eosinophils/100 WBC (Bld) 3.8 % Normal 0.9-7.0 [facility] Comment on above: Performed By: #### CBC #### [facility] [address] [place] [address] Dr. Ivana Gotti Erythrocyte distribution width (RBC) [Ratio] 13.3 % Normal 11.0-15.0 [facility] Comment on above: Performed By: #### CBC #### [facility] [address] [place] [address] Dr. Ivana Gotti Hematocrit (Bld) [Volume fraction] 45.1 % Normal 36.0-48.0 [facility] Comment on above: Performed By: #### CBC #### [facility] [address] [place] [address] Dr. Ivana Gotti Hemoglobin (Bld) [Mass/Vol] 14.9 g/dL Normal 12.0-16.0 [facility] Comment on above: Performed By: #### CBC #### [facility] [address] [place] [address] Dr. Ivana Gotti IG # 0.02 10e3/ul Normal 0.00-0.03 [facility] Comment on above: Performed By: #### CBC #### [facility] [address] [place] [address] Dr. Ivana Gotti IG % 0.3 % Normal 0.0-0.5 [facility] Comment on above: Performed By: #### CBC #### [facility] [address] [place] [address] Dr. Ivana Gotti LYMPH # 1.9 103/ul Normal 1.2-3.8 [facility] Comment on above: Performed By: #### CBC #### [facility] [address] [place] [address] Dr. Ivana Gotti Lymphocytes/100 WBC (Bld) 25.4 % Normal 20.5-60.0 [facility] Comment on above: Performed By: #### CBC #### [facility] [address] [place] [address] Dr. Ivana Gotti MANUAL DIFF REQ NO Normal [facility] Comment on above: Performed By: #### CBC #### [facility] [address] [place] [address] Dr. Ivana Gotti MCH (RBC) [Entitic mass] 31.2 pg Normal 26.7-34.0 [facility] Comment on above: Performed By: #### CBC #### [facility] [address] [place] [address] Dr. Ivana Gotti MCHC (RBC) [Mass/Vol] 33.0 g/dL Normal 29.9-35.2 [facility] Comment on above: Performed By: #### CBC #### [facility] [address] [place] [address] Dr. Ivana Gotti MCV (RBC) [Entitic vol] 94.5 fL Normal 81.0-99.0 [facility] Comment on above: Performed By: #### CBC #### [facility] [address] [place] [address] Dr. Ivana Gotti MONO # 0.5 103/ul Normal 0.3-0.8 [facility] Comment on above: Performed By: #### CBC #### [facility] [address] [place] [address] Dr. Ivana Gotti Monocytes/100 WBC (Bld) 6.9 % Normal 1.7-12.0 [facility] Comment on above: Performed By: #### CBC #### [facility] [address] [place] [address] Dr. Ivana Gotti NEUT # 4.7 103/ul Normal 1.4-6.5 [facility] Comment on above: Performed By: #### CBC #### [facility] [address] [place] [address] Dr. Ivana Gotti Neutrophils/100 WBC (Bld) 62.9 % Normal 43.0-75.0 [facility] Comment on above: Performed By: #### CBC #### [facility] [address] [place] [address] Dr. Ivana Gotti Platelet mean volume (Bld) [Entitic vol] 10.2 fL Normal 9.5-13.5 [facility] Comment on above: Performed By: #### CBC #### [facility] [address] [place] [address] Dr. Ivana Gotti PLT 262 103/ul Normal 150-450 [facility] Comment on above: Performed By: #### CBC #### [facility] [address] [place] [address] Dr. Ivana Gotti RBC 4.77 106/ul Normal 4.20-5.40 [facility] Comment on above: Performed By: #### CBC #### [facility] [address] [place] [address] Dr. Ivana Gotti WBC 7.4 103/ul Normal 4.0-11.0 [facility] Comment on above: Performed By: #### CBC #### [facility] [address] [place] [address] Dr. Ivana Gotti LIPID PROFILEon 02-28-2022 CHOL-HDL RATIO NORM SEE BELOW Normal [facility] Comment on above: Result Comment: 3.3 - 4.4 LOW RISK 4.4 - 7.1 AVERAGE RISK 7.1 - 11.0 MODERATE RISK >11.0 HIGH RISK Performed By: #### L IPID, BMP, TSH #### [facility] [address] [address] [address] Ivana Gotti Cholesterol [Mass/Vol] 240 mg/dL Critically high <=200 [facility] Comment on above: Performed By: #### LIPID, BMP, TSH #### [facility] [address] [address] [address] Ivana Gotti Cholesterol in HDL [Mass/Vol] 123 mg/dL Critically high 40-60 [facility] Comment on above: Performed By: #### LIPID, BMP, TSH #### [facility] [address] [address] [address] Ivana Gotti Cholesterol in LDL [Mass/Vol] 107.8 mg/dL Normal [facility] Comment on above: Performed By: #### LIPID, BMP, TSH #### [facility] [address] [address] [address] Ivana Gotti Cholesterol.tota l/Cholesterol in HDL [Mass ratio] 2.0 {ratio} Normal [facility] Comment on above: Performed By: #### LIPID, BMP, TSH #### [facility] [address] [place] [address] Dr. Ivana Gotti HDL NORMAL > or = 60 mg/dl - LO W CARDIOVASCULAR RISK <40 mg/dl - HIGH CARDIOVASCULAR RISK Normal [facility] Comment on above: Performed By: #### LIPID, BMP, TSH #### [facility] [address] [address] [address] Ivana Gotti LDL CALC NORMAL SEE BELOW Normal [facility] Comment on above: Result Comment: <100 mg/dl OPTIMAL 100 - 129 mg/dl NEAR OR ABOVE OPTIMAL 130 - 159 mg/dl BORDERLINE HIGH 160 - 189 mg/dl HIGH >190 mg/dl VERY HIGH Performed By: #### L IPID, BMP, TSH #### [facility] [address] [address] [address] Ivana Gotti Triglyceride [Mass/Vol] 46 mg/dL Normal <=150 [facility] Comment on above: Performed By: #### LIPID, BMP, TSH #### [facility] [address] [place], [place] [address] Dr. Ivana Gotti VLDL CALC 9.2 mg/dL Normal [facility] Comment on above: Performed By: #### LIPID, BMP, TSH #### [facility] [address] [place], [place] [address] Dr. Ivana Gotti MG MAMM SCREEN 3D PADMINI CADon 02-28-2022 MG MAMM SCREEN 3D PADMINI CAD Patient: MIKE RIVERA Exam Date: 02/28/2022 : 1955 Gender:F Ordering : DR ROB JIMÉNEZ D.O. Admission #: [id number] Family : Order #: [id number] CLICK HERE TO VIEW EXAM RADIOLOGY REPORT [...] lung cancer at age 72. LOCATION: [facility] BREAST COMPOSITION: Heterogeneously dense,which may obscure small [...] Tobar MD on 02/28/2022 at 08:40 Normal [facility] PROF CHEM 8 (BAS METB)on Anion gap [Moles/Vol] 10.3 mmol/L Normal [facility] Comment on above: Performed By: #### LIPID, BMP, TSH #### [facility] [address] [place] [address] Dr. Ivana Gotti Calcium [Mass/Vol] 9.5 mg/dL Normal 8.5-10.1 [facility] Comment on above: Performed By: #### LIPID, BMP, TSH #### [facility] [address] [place] [address] Dr. Ivana Gotti Chloride [Moles/Vol] 104 mmol/L Normal 98-107 [facility] Comment on above: Performed By: #### LIPID, BMP, TSH #### [facility] [address] [place] [address] Dr. Ivana Gotti CO2 [Moles/Vol] 26.8 mmol/L Normal 21.0-32.0 [facility] Comment on above: Performed By: #### LIPID, BMP, TSH #### [facility] [address] [place] [address] Dr. Ivana Gotti Creatinine [Mass/Vol] 0.85 mg/dL Normal 0.55-1.02 [facility] Comment on above: Performed By: #### LIPID, BMP, TSH #### [facility] [address] [place] [address] Dr. Ivana Gotti EGFR-AF BAHAMIAN >60 Normal >=60 [facility] Comment on above: Performed By: #### LIPID, BMP, TSH #### [facility] [address] [place] [address] Dr. Ivana Gotti EGFR-NON AF BAHAMIAN >60 Normal >=60 [facility] Comment on above: Performed By: #### LIPID, BMP, TSH #### [facility] [address] [place] [address] Dr. Ivana Gotti Glucose [Mass/Vol] 117 mg/dL Critically high 74-106 [facility] Comment on above: Performed By: #### LIPID, BMP, TSH #### [facility] [address] [place] [address] Dr. Ivana Gotti Potassium [Moles/Vol] 4.1 mmol/L Normal 3.5-5.1 [facility] Comment on above: Performed By: #### LIPID, BMP, TSH #### [facility] [address] [place] [address] Dr. Ivana Gotti Sodium [Moles/Vol] 137 mmol/L Normal 136-145 [facility] Comment on above: Performed By: #### LIPID, BMP, TSH #### [facility] [address] [place] [address] Dr. Ivana Gotti Urea nitrogen [Mass/Vol] 19.0 mg/dL Critically high 7.0-18.0 [facility] Comment on above: Performed By: #### LIPID, BMP, TSH #### [facility] [address] [place] [address] Dr. Ivana Gotti Urea nitrogen/Creatin ine [Mass ratio] 22.4 mg/mg Normal [facility] Comment on above: Performed By: #### LIPID, BMP, TSH #### [facility] [address] [place] [address] Dr. Ivana Gotti TSHon 02-28-2022 TSH 4.341 uIU/mL Critically high 0.358-3.740 [facility] Comment on above: Performed By: #### LIPID, BMP, TSH ####[facility] [id number] [address]Dr. Ivana Gotti VITAMIN D 25 OHon 02-28-2022 VIT D 25-OH 16.8 ng/mL Normal [facility] Comment on above: Performed By: #### VITAD #### [facility] [address] [place] [address] Dr. Ivana Gotti VIT D RANGES SEE BELOW Normal [facility] Comment on above: Result Comment: <20 ng/mL Vit D deficien t 20 - <30 ng/mL Vit D insufficient 30 - 100 ng/mL Vit D sufficient >100 ng/mL Potential Toxicity Performed By: #### V ITAD #### [facility] [address] [place] [address] Dr. Ivana Gotti Vital Signs Date Time Vital Sign Value Performing Clinician Facility 11-20-2023 09:36-0400 Blood Pressure Location Nasir Urrutia [facility] 11-20-2023 09:36-0400 Diastolic blood pressure 76 mm[Hg] Nasir NANCE [facility] 11-20-2023 09:36-0400 Heart rate 94 /min Nasir NANCE [facility] 11-20-2023 09:36-0400 Respiratory rate 16 /min Nasir NANCE [facility] 11-20-2023 09:36-0400 Systolic blood pressure 134 mm[Hg] Nasir NANCE [facility] 10-12-2023 15:44-0400 Body height 167.64 cm [facility] 10-12-2023 15:44-0400 Body mass index (BMI) [Ratio] 23.3 kg/m2 [facility] 10-12-2023 15:44-0400 Body weight 65.54 kg [facility] 10-12-2023 15:44-0400 Diastolic blood pressure 75 mm[Hg] [facility] 10-12-2023 15:44-0400 Heart rate 93 /min [facility] 10-12-2023 15:44-0400 Respiratory rate 12 /min [facility] 10-12-2023 15:44-0400 Systolic blood pressure 115 mm[Hg] [facility] 04-30-2023 19:53-0500 Body height 167.64 cm Orly Pedersen Other [employer] [facility] [employer] Other 04-13-2023 15:00-0500 Body height 167.64 cm Rob Jiménez Other [facility] Other 04-13-2023 15:00-0500 Body mass index (BMI) [Ratio] 22.88 kg/m2 Rob Jiménez Other [facility] Other 04-13-2023 15:00-0500 Body weight 64.32 kg Rob Ball Other [employer] Other 04-13-2023 15:00-0500 Diastolic blood pressure 87 mm[Hg] Rob Ball Other [facility] Other 04-13-2023 15:00-0500 Respiratory rate 12 /min Rob Ball Other [employer] Other 04-13-2023 15:00-0500 Systolic blood pressure 153 mm[Hg] Rob Ball Other [facility] Other 10-22-2022 15:30-0400 Body height 167.64 cm Rob Ball Other [facility] Other 10-22-2022 15:30-0400 Body mass index (BMI) [Ratio] 22.34 kg/m2 Rob Ball Other [facility] Other 10-22-2022 15:30-0400 Body weight 62.78 kg Rob Ball Other [facility] Other 10-22-2022 15:30-0400 Diastolic blood pressure 92 mm[Hg] Rob Ball Other [employer] Other 10-22-2022 15:30-0400 Respiratory rate 12 /min Rob Ball Other [employer] Other 10-22-2022 15:30-0400 Systolic blood pressure 168 mm[Hg] Rob Ball Other [facility] Other 08-11-2022 11:57-0400 Blood Pressure Location Nasir NANCE [facility] 08-11-2022 11:57-0400 Diastolic blood pressure 89 mm[Hg] Nasir NANCE [facility] 08-11-2022 11:57-0400 Heart rate 82 /min Nasir NANCE [facility] 08-11-2022 11:57-0400 Respiratory rate 16 /min Nasir NANCE [facility] 08-11-2022 11:57-0400 Systolic blood pressure 132 mm[Hg] Nasir NANCE [facility] 04-28-2022 16:11-0500 Blood Pressure Location Nasir NANCE [facility] 04-28-2022 16:11-0500 Diastolic blood pressure 82 mm[Hg] Nasir NANCE [facility] 04-28-2022 16:11-0500 Heart rate 70 /min Nasir NANCE [facility] 04-28-2022 16:11-0500 Respiratory rate 16 /min Nasir NANCE [facility] 04-28-2022 16:11-0500 Systolic blood pressure 127 mm[Hg] Nasir NANCE [facility] 03-04-2022 15:23-0400 Blood Pressure Location Link [facility] 03-04-2022 15:23-0400 Diastolic blood pressure 84 mm[Hg] [facility] 03-04-2022 15:23-0400 Heart rate 72 /min Link [facility] 03-04-2022 15:23-0400 Respiratory rate 16 /min Link [facility] 03-04-2022 15:23-0400 Systolic blood pressure 136 mm[Hg] Link N[facility] 02-03-2022 16:22-0400 Blood Pressure Location Nasir NANCE [facility] 02-03-2022 16:22-0400 Diastolic blood pressure 88 mm[Hg] Nasir NANCE [facility] 02-03-2022 16:22-0400 Heart rate 74 /min Nasir NANCE [facility] 02-03-2022 16:22-0400 Respiratory rate 16 /min Nasir NANCE [facility] 02-03-2022 16:22-0400 Systolic blood pressure 137 mm[Hg] Nasir NANCE [facility] 10-14-2021 15:54-0400 Blood Pressure Location Nasir NANCE [facility] 10-14-2021 15:54-0400 Diastolic blood pressure 87 mm[Hg] Nasir NANCE [facility] 10-14-2021 15:54-0400 Heart rate 80 /min Nasir NANCE [facility] 10-14-2021 15:54-0400 Respiratory rate 16 /min Nasir NANCE [facility] 10-14-2021 15:54-0400 Systolic blood pressure 137 mm[Hg] Nasir NANCE [facility] 09-18-2021 13:19-0400 Blood Pressure Location Nasir NANCE [facility] [place] 09-18-2021 13:19-0400 Diastolic blood pressure 85 mm[Hg] Nasir NANCE [facility] 09-18-2021 13:19-0400 Heart rate 84 /min Nasir NANCE [facility] 09-18-2021 13:19-0400 Systolic blood pressure 152 mm[Hg] Nasir NANCE [facility] Encounters Encounter Date Encounter Type Care Provider Facility Start: 02-15-[address] [facility] Start: 11-20-2023 End: 11-20-2023 ambulatory Nasir NANCE Facility:[facility] Start: 11-20-2023 End: 11-20-2023 Patient encounter procedure Nasir NANCE [facility] Start: 10-12-2023 End: 10-12-2023 ambulatory [facility] Work Phone: Start: 10-12-2023 End: 10-12-2023 Patient encounter procedure [facility] Physician [facility] Work Phone: Start: 07-30-2023 Non-patient / Non-visit [facility] [employer] Work Phone: Start: 06-14-2023 End: 06-14-2023 ambulatory Orly Pedersen Other [employer] Other Start: 06-14-2023 Telephone encounter Orly Pedersen [facility] Start: 05-04-2023 End: 05-04-2023 ambulatory Rob Jiménez Other [employer] Other Start: 05-04-2023 Telephone encounter Rob Jiménez [facility] Start: 04-30-2023 End: 04-30-2023 ambulatory Orly Pedersen Other [employer] Other Start: 04-30-2023 Telephone encounter Orly Pedersen [facility] Start: 04-13-2023 End: 04-13-2023 ambulatory Rob Jiménez Other [employer] Other Start: 04-13-2023 Encounter for genera l adult medical examination without abnormal findings Rob Jiménez [facility] Start: 04-13-2023 Periodic preventive med est patient 65yrs& older Rob Jiménez [facility] Start: 03-27-2023 End: 03-27-2023 ambulatory Rob Jiménez Other [employer] Other Start: 03-27-2023 Office outpatient vi sit 15 minutes Rob Jiménez [facility] Start: 01-30-2023 ambulatory Nasir Casillas ty:CASSANDR[facility] Start: 11-09-2022 End: 11-09-2022 ambulatory Orly Pedersen Other [employer] Other Start: 11-09-2022 Encounter by ata Pedersen [facility] Start: 10-23-2022 End: 10-23-2022 ambulatory Orly Pedersen Other [employer] Other Start: 10-23-2022 Telephone encounter Orly Pedersen [facility] Start: 10-22-2022 End: 10-22-2022 ambulatory Rob Jiménez Other [employer] Other Start: 10-22-2022 Office outpatient vi sit 25 minutes Rob Tino [facility] Start: 09-28-2022 End: 09-28-2022 ambulatory KENDALL LANDIS . Facility:[facility] Start: 08-11-2022 End: 08-11-2022 Patient encounter procedure Nasir NANCE [facility] Start: 07-28-2022 End: 07-28-2022 Patient encounter procedure Nasir NANCE [facility] Start: 05-22-2022 End: 05-23-[address] ROB JIMÉNEZ Facility:[facility] Start: 04-28-2022 End: 04-28-2022 Patient encounter procedure Nasir NANCE [facility] Start: 04-09-2022 End: 04-09-[address] LINK CALHOUN . Facility:[facility] Start: 04-08-2022 Encounter for preprocedural laboratory examination DR LINK CALHOUN . [facility] Start: 04-05-2022 End: 04-06-[address] LINK CALHOUN . Facility:[facility] Start: 04-05-2022 End: 04-06-2022 Encounter for preprocedural laboratory examination DR LINK CALHOUN . Facility:[facility] Start: 03-04-2022 End: 03-04-2022 Patient encounter procedure Link CALHOUN [facility] Start: 03-03-2022 Encounter for genera l adult medical examination without abnormal findings DR ROB JIMÉNEZ [facility] Start: 02-28-2022 End: 03-01-[address] ROB JIMÉNEZ Facility:[facility] Start: 02-28-2022 End: 03-01-2022 Encounter for general adult medical examination without abnormal findings DR ROB JIMÉNEZ Facility:[facility] Start: 02-12-2022 Adult health examination Kong Jiménez Other [employer] Other Start: 02-12-2022 Gynecological examination normal Rob Jiménez Other [employer] Other Start: 02-03-2022 End: 02-03-2022 Patient encounter procedure Nasir NANCE [facility] Start: 10-14-2021 End: 10-14-2021 Patient encounter procedure Nasir NANCE [facility] Start: 09-18-2021 End: 09-18-2021 Lab Drop off Nasir NANCE [facility] Start: 09-18-2021 End: 09-18-2021 Patient encounter procedure Nasir NANCE [facility] Procedures Date Procedure Procedure Detail Performing Clinician Start: 11-20-2023 Dilation of urethra Nasir NANCE Start: 08-11-2022 Dilation of urethra Nasir NANCE Start: 02-03-2022 Dilation of urethra Nasir NANCE Start: 01-10-2019 Dilation of urethra Nasir NANCE Start: 05-25-2005 Colonoscopy [facility] Start: 05-25-2005 Esophagogastroduodenoscopy [facility] Start: 08-21-2003 Urodynamics Nasir NANCE Appendectomy Nasir NANCE Bilateral salpingect dawson with oophorectomy [facility] section Nasir ZEPEDA Comment on above: x2 section Link [facility] Cholecystectomy Nasir ODOM Colonoscopy abnormal (finding) Nasir NANCE Cystoscopy [facility] Depression screening Kaitlyn Jiménez Other dilation of uretheral stricture 2 Nasir NANCE Comment on above: 05/10/10, 07/22/10, 10/04/10, 12/23/10, 02/22 12/02, 05/05/11, 07/18/11, 10/17/11, 01/02/12, 05/10/12, 03/12/12, 07/23/12, 11/05/12, 01/07/13, 03/28/13, 05/13/13, 07/15/13, 09/30/13, 12/09/13, 02/24/14, 08/04/15, 09/21/15, 11/23/15, 02/08/16, 04/16/16, 08/07/16, 12/22/16, 02/20/17, 04/24/17, 07/17/17, 01/11/18, 03/26/18, 05/17/18, 08/23/18, 01/10/19. General examination of patient Rob Jiménez Other Hysterectomy Nasir NANCE Laparoscopy Link [facility] Lysis of adhesions Link ALVAREZ Screening for malign ant neoplasm of breast Rob Ball Other skin cancer removal 3 Rigoberto NANCE Comment on above: from face Total abdominal hysterectomy [facility] Immunizations Immunization Date Immunization Notes Care Provider Sapphire bravo 05-13-2021 SARS-CoV-2 (COVID-19 ) Ad26 vaccine, recombinant Nasir NANCE [facility] Comment on above: Result Comment: 2022: [id number] 04-24-2021 SARS-CoV-2 (COVID-19 ) Ad26 vaccine, recombinant Nasircyndi NANCE [facility] 10-19-2020 SARS-CoV-2 (COVID-19 ) Ad26 vaccine, recombinant Nasircyndi NANCE [facility] Comment on above: Result Comment: 2022: [id number] 09-22-2020 SARS-CoV-2 (COVID-19 ) Ad26 vaccine, recombinant Nasir NANCE [facility] 09-01-2020 SARS-CoV-2 (COVID-19 ) [id number] Nasircyndi NANCE [facility] 05-01-2020 SARS-CoV-2 (COVID-19 ) mRNA BNT-162b2 vax Nasir NANCE [facility] 04-03-2020 SARS-CoV-2 (COVID-19 ) mRNA-1273 vaccine Nasir CORNELIO [facility] Payers Date Payer Category Payer Unknown [id number] 1955 Unknown [id number] 2.16.84 [id number] 1955 Unknown [id number] 2.16.84 [id number] 1955 Unknown [id number] 2.16.84 [id number] 1955 Unknown [id number] 2.16.84 [id number] 1955 Unknown [id number] 2.16.84 [id number] 1955 Unknown [id number] 2.16.8 [id number] 1955 Unknown [id number] 2.16.8 [id number] 1955 Unknown [id number] 2.16.8 [id number] Social History Date Type Detail Facility Start: 09-18-2021 End: 11-20-2023 Tobacco smoking status Heavy tobacco smoker (finding) [facility] Tobacco smoking status Smoker (finding) [facility] [employer] Sex Assigned At Female [facility] Tobacco smoking status Never [facility] Start: 1955 Sex Assigned At Female F [facility] Functional Status Date Assessment Result Facility 11-20-2023 Functional Status N/A [facility] 08-11-2022 Functional Status N/A [facility] 07-28-2022 Functional Status N/A [facility] 12-05-2022 Functional Status N/A [facility] 03-04-2022 Functional Status N/A [facility] 02-03-2022 Functional Status N/A [facility] Clinical Notes 09-18-2021 to 11-20-2023 Note Date & Type Note Facility 11-20-2023 Hospital Discharg e instructions Patient Education 11/20/2023 10:10:50 Urethral Dilation Urethral Dilation Urethral dilation is [...] including vitamins, herbs, eye drops, creams, and sxwi-aoa-lgeehas medicines. Any problems you or family members [...] provider tells you to take them. Taking mukx-ggb-sspkajx medicines, vitamins, herbs, and supplements. General instructions [...] Follow these instructions at home: Medicines Take vdlj-wwd-mgexmbt and prescription medicines only as told by [...] actions to prevent or treat constipation: ?Take snvn-bzb-cpuoepe or prescription medicines. ?Eat foods that are [...] can make it difficult to pass urine. Ask your [...] have with your health care provider. Document Revised: 06/23/2019 Document Reviewed: 06/23/2019 Need Fixed Patient Education 2022 [employer] Follow Up Care 09/07/2023 14:21:57 With:CORNELIO GATES, Nasir [place], URL Address: [address] [place] [address]- When: Unknown [facility] 11-20-2023 Note Patient Education Urology Urethral Dilation Urethral dilation [...] including vitamins, herbs, eye drops, creams, and kwul-sdf-hvgxgmc medicines. ? Any problems you or family [...] tells you to take them. ? Taking havz-hmg-ldmlxmo medicines, vitamins, herbs, and supplements. General instructions [...] these instructions at home: Medicines ? Take jhfy-wbf-zpwyebj and prescription medicines only as told by [...] to prevent or treat constipation: ? Take afoz-zog-pzzpoxy or prescription medicines. ? Eat foods that [...] ? You develop new bleeding when you (more content not included)... [facility] 06-14-2023 Evaluation note Encounter Date Diagnosis Assessment Notes May, Primary hypertension (ICD-10 - I10) [facility] Other 11-20-2023 Evaluation note* Encounter Date Diagnosis Assessment Notes Treatment Notes Treatment Clinical Notes Mar, Wellness examination (ICD-10 - Z00.00) Healthy diet and exercise. Reviewed age-appropriate preventive testing recommended. Discussed LDCT but declines. Mar, IFG (impaired fastin g glucose) (ICD-10 - R73.01) A1C normal Healthy diet and exercise Mar, Primary hypertension (ICD-10 - I10) Uncontrolled per office BP. This patient is instructed to consume a healthy, low-fat, low-salt diet. They are also encouraged to continue exercise to achieve/maintain a normal BMI. Patient is instructed on [...] rhochi on right side Mar, Chronic cough (ICD-1 0 - R05.3) Mar, Screening mammogram for breast cancer (ICD-10 - Z12.31) Instructed patient on monthly SBE and yearly mammograms. [facility] 11-03-2023 Evaluation note* Encounter Date Diagnosis [...] continue exercise to achieve/maintain a normal BMI. [facility] 06-01-2023 Evaluation note* Encounter Date Diagnosis Assessment Notes Treatment Notes Treatment Clinical Notes Oct, Primary hypertension (ICD-10 - I10) [facility] 05-31-2023 Evaluation note* Encounter Date Diagnosis [...] Vitamin D supplements. Recheck Vitamin D level [facility] 03-20-2023 Hospital Discharge instructions Patient Education [...] including vitamins, herbs, eye drops, creams, and vlin-nli-okhwdag medicines. Any problems you or family members [...] provider tells you to take them. Taking ldyo-ydv-yoxjlgu medicines, vitamins, herbs, and supplements. General instructions [...] Follow these instructions at home: Medicines Take drtn-nyl-uhrxvcm and prescription medicines only as told by [...] actions to prevent or treat constipation: ?Take jptz-vrd-njwnopr or prescription medicines. ?Eat foods that are [...] 06/06/2016 Document Revised: 06/23/2019 Document Reviewed: 06/23/2019 [employer] Patient Education 2019 [employer]. Follow Up Care 07/28/2022 15:53:37 With:CORNELIO GATES, Nasir York, URL Address: [facility] [address] , [place] [address]- When: Unknown [facility] 03-06-2023 Hospital Discharge instructions Patient Education 07/28/2022 [...] including vitamins, herbs, eye drops, creams, and wwls-lco-bizemhl medicines. Any problems you or family members [...] provider tells you to take them. Taking nfgw-kxg-xxcvoaw medicines, vitamins, herbs, and supplements. General instructions [...] Follow these instructions at home: Medicines Take tjtw-iqx-vanbpkt and prescription medicines only as told by [...] actions to prevent or treat constipation: ?Take fgxv-hsh-nxnkmoo or prescription medicines. ?Eat foods that are [...] Document Reviewed: 06/23/2019 Elsevier Patient Education 2019 [employer] Follow Up Care 04/28/2022 17:00:59 With:CORNELIO GATES, Nasir York, LARON Address: [facility] [address] [place] [address]- When: Unknown [facility] 12-05-2022 Hospital Discharge instructions Patient Education 04/28/2022 [...] including vitamins, herbs, eye drops, creams, and pkso-bec-ytiifpf medicines. Any problems you or family members [...] provider tells you to take them. Taking mqqq-qda-espxpmm medicines, vitamins, herbs, and supplements. General instructions [...] Follow these instructions at home: Medicines Take qejp-rxa-hgddbha and prescription medicines only as told by [...] actions to prevent or treat constipation: ?Take nlwu-peu-idfmpig or prescription medicines. ?Eat foods that are [...] 06/06/2016 Document Revised: 06/23/2019 Document Reviewed: 06/23/2019 [employer] Patient Education 2019 [employer]. Follow Up Care 02/03/2022 16:42:32 With:CORNELIO GATES, Nasir York, URL Address: [facility] [address] , [place] [address]- When: Unknown [facility] 11-16-2022 NoteOPERATIVE NOTE OPERATION DATE: 04/09/2022 PREOPERATIVE [...] should be 10 years. CC: Rob Jiménez D.O.[facility]09-12-2022 Hospital Discharge instructions Patient Education 02/03/2022 16:35:49 [...] reconstructed. Follow these instructions at home: Take exqb-kxr-gcmgcjq and prescription medicines only as told by [...] 06/06/2016 Document Revised: 12/22/2018 Document Reviewed: 12/22/2018 [employer] Patient Education 2020 [employer] Follow Up Care 10/14/2021 16:58:02 With:CORNELIO GATES, Nasir York, ANGELLAL Address: [facility] [address] , [place] [address]- [phone] When:05/05/2022 Comments:BRITANY BALL [facility] 05-23-2022 Hospital Discharge instructions Patient Education 10/14/2021 [...] reconstructed. Follow these instructions at home: Take qfdd-ppg-fmkzaoe and prescription medicines only as told by [...] 06/06/2016 Document Revised: 12/22/2018 Document Reviewed: 12/22/2018 [employer] Patient Education 2020 [employer] Follow Up Care 09/18/2021 14:15:26 With:CORNELIO GATES, Nasir York, URL Address: [facility] [address] , [place] [address]- When: Unknown [facility] 04-27-2022 Hospital Discharge instructions Patient Education 09/18/2021 [...] including vitamins, herbs, eye drops, creams, and tcoo-qse-mbibsvn medicines. Any problems you or family members [...] provider tells you to take them. Taking tdar-xxg-rgrfxlv medicines, vitamins, herbs, and supplements. General instructions [...] Follow these instructions at home: Medicines Take bwrn-fob-vhldaan and prescription medicines only as told by [...] actions to prevent or treat constipation: ?Take tdoa-pys-vmhguzm or prescription medicines. ?Eat foods that are [...] 06/06/2016 Document Revised: 06/23/2019 Document Reviewed: 06/23/2019 [employer] Patient Education 2019 [employer]. Follow Up Care 08/29/2021 15:32:29 With:CORNELIO GATES, Nasir York, ANGELLAL Address: [facility] [address] , [place] [address]- Business (1) When: Unknown [facility] Evaluation + Plan note Future Appointments Appointment Date:10/14/2021 03:00:00 PM Scheduled Provider:Nasir NANCE MD Location[facility] Appointment Type:URO Office Visit [facility] Evaluation + Plan note Future Appointments Appointment Date:10/14/2021 03:00:00 PM Scheduled Provider:Nasir NANCE MD Location:[facility] Appointment Type:URO Office Visit Diagnostic Tests Pending * [facility] Appointment Date:02/03/2022 03:30:00 PM Scheduled Provider:Nasir NANCE MD Location:[facility] Appointment Type:URO Office Visit [facility] evaluation + Plan note Future Appointments Appointment Date:04/28/2022 03:30:00 PM Scheduled Provider:Nasir NANCE MD Location:[facility] Appointment Type:URO Office Visit [facility] evaluation + Plan note Future Appointments Appointment Date:07/28/2022 03:15:00 PM Scheduled Provider:Nasir NANCE MD Location:[facility] Appointment Type:URO Office Visit [facility] evaluation + Plan note Future Appointments Appointment Date:08/11/2022 11:45:00 AM Scheduled Provider:Nasir NANCE MD Location:[facility] Appointment Type:URO Office Visit [facility] evaluation + Plan note Future Appointments Appointment Date:11/17/2022 03:15:00 PM Scheduled Provider:Nasir NANCE MD Location:[facility] Appointment Type:URO Office Visit [facility] evaluation + Plan note Future Appointments Appointment Date:02/15/2024 02:45:00 PM Scheduled Provider:Nasir NANCE MD Location:[facility] Appointment Type:URO Office Visit [facility] evaluation noteNo InformationN[facility]Well[facility] [place] Other Evaluation note* Diagnosis Onset Date Resolution Status CORTNEY (generalized anxiety disorder) acute Hypothyroid acute IFG (impaired fasting glucose) acute Mucopurulent chronic bronchitis acute Nicotine dependence, cigarettes, uncomplicated acute Primary hypertension acute [facility] Work Phone: History general Narrative - Reported* Type Description Date [...] Surgical History CYSTOSCOPY 2001 Surgical History LAPAROSCOPY 2003,2005 Surgical History COLONOSCOPY 2005 Surgical History EGD 2005 Hospitalization History SEE SURGICAL HX [facility] [place] Other Hospital course Narrative No data available for this section [facility] Hospital Discharge instructions No data available for this section [facility] No data available for this section [facility] Summary Purpose Family History No Family History Records Found Relationship Condition Age at Onset Recorded Date/T mikaela father Heart disease Unknown Advance Directives No Advanced Directives Records Found Advance Directive Response Recorded Date/ Time Advance Directives No June 17, 2023 10:24am Chief Complaint and Reason for Visit Chief Complaint Amb Documentation 6 month follow up Reason for Visit CORTNEY (generalized anx iety disorder) Hypothyroid IFG (impaired fasting glucose) Mucopurulent chronic bronchitis Nicotine dependence, cigarettes, uncomplicated Primary hypertension Additional Source Comments Care Team (unrecognized sect ion and content) Team Status: Active Member Role Status Dates Rob Jiménez , Primary Care Provider Active Team Status: Active Member Role Status Dates Rob Jiménez DO Primary Care Provider Active Start: July 30, 2023 SHANNAN Kebede Attending Provider Active Start : July 30, 2023 Team Status: Inactive Member Role Status Dates Rob Jiménez DO Primary Care Provide r, Attending Provider Active Start: October 12, 2023 End: October 12, 2023 INFORMATION SOURCE (unrecogn ized section and content) DATE CREATED AUTHOR 10/01/2022 [facility] DATE CREATED AUTHOR AUTHOR'S ORGANIZ ATION 11/21/2023 [facility] REASON FOR VISIT (unrecogniz ed section and content) weight lossRe-Send RefillUpd ate Demographics - Personal InfoSinuses- [phone] InformationLab/mamm resultsNo InformationNo Information Goals (unrecognized section and content) Goals may be documented in a n alternate section FOR RECORDS PERTAINING TO PATIENTS WHO ARE [...] BE BASED ON THE PRIMARY CLINICAL RECORDS. [facility]. provides no warranty or guarantee of the accuracy or completeness of information in this document.
== END 2024-01-27 15:44 | disposition home or self-care (01) ==
LOC: RAD 15:44
PROVIDERS: PCP Internal Medicine; Visit Provider Internal Medicine
DX: M47.812 Spondylosis without myelopathy or radiculopathy, cervical region (principal); M54.2 Cervicalgia
CPT/HCPCS: 72052

== ENCOUNTER 2024-02-06 07:48 | Outpatient (OUT) | payer OTHER, SELFPAY ==
--- OUTSIDE RECORDS SUMMARY | 2024-02-06 07:53 | XMS_ITS | CCD ---
Author Organization [facility] Care Team Providers Care Digital Circuit Designer Name Role Phone ROB JIMÉNEZ Primary Care Physician KENDALL ELLIOTT Attending Unavailable SABIHA ., KENDALL Consulting Unavailable SABIHA ., KENDALL Admitting Unavailable TINO, DR ARMAS Primary Care Unavailable NILL ., DR MAZA Admitting Unavailable NILL ., DR MAZA Attending Unavailable NILL ., DR MAZA Consulting Unavailable BALL, DR ARMAS Primary Care Unavailable KATHY, HARRY Consulting Unavailable KUCHIPUDI, MANUEL Consulting Unavailable BALL, DR ARMAS Admitting Unavailable BALL, DR ARMAS [...] Unavailable BALL, DR ARMAS Primary Care Unavailable Rob Jiménez Unavailable Orly Pedersen Unavailable Nasir NANCE Attending Unavailable CORNELIO, Nasir York Attending Unavailable Nasir NANCE Attending Unavailable Allergies Allergy Classification Reported Allergen(s) Allergy Type Date of Onset Reaction(s) Facility Cephalosporins (antibiotic) (1 source) Cefaclor; Translations: [cefaclor] Drug Allergy Joint swelling (finding), Cutaneous eruption (morphologic abnormality) [facility] Macrolides (antibiotic) (1 source) Erythromycin; Translations: [erythromycin] Drug Allergy Joint swelling (finding), Cutaneous eruption (morphologic abnormality) [facility] NITROFURANTOIN, MACROCRYSTALS / Nitrofurantoin, Monohydrate (1 source) NITROFURANTOIN, MACROCRYSTALS / Nitrofurantoin, Monohydrate; Translations: [nitrofurantoin] Drug Allergy Eruption of skin (disorder) [facility] Penicillins (antibiotic) (1 source) Penicillin; Translations: [penicillin] Drug Allergy Cutaneous eruption (morphologic abnormality) [facility] Sulfonamides (antibiotic) (1 source) Sulfonamides (Antibiotic); Translations: [sulfa drugs] Drug Allergy Nausea and vomiting (disorder) [facility] (9 sources) Cefaclor; Translations: [cefaclor] Drug Allergy Joint swelling (finding), Cutaneous eruption (morphologic abnormality) [facility] (18 sources) Erythromycin; Translations: [erythromycin] Drug Allergy Joint swelling (finding), Cutaneous eruption (morphologic abnormality) [facility] (13 sources) Penicillin; Translations: [penicillin] Drug Allergy Cutaneous eruption (morphologic abnormality) [facility] (9 sources) Sulfonamides (Antibiotic); Translations: [sulfa drugs] Drug allergy Nausea and vomiting (disorder) [facility] (16 sources) NITROFURANTOIN, MACROCRYSTALS / Nitrofurantoin, Monohydrate; Translations: [nitrofurantoin] Drug Allergy Eruption of skin (disorder) [facility] (5 sources) Cefaclor Drug Allergy 10-17-19 15 Unknown [facility] (3 sources) Erythromycin Drug Allergy 10-17-19 15 Unknown Reaction [facility] (1 source) Nitrofurantoin Drug Allergy 04-03-20 22 [facility] (3 sources) Penicillins Drug allergy (disorder) 10-17-19 15 Unknown Reaction [facility] (1 source) Sulfonamides (Antibiotic) Drug allergy (disorder) [facility] (11 sources) Cephalexin Drug Allergy 10-12-19 24 Unknown, Unknown Reaction [facility] (9 sources) Substance with sulfonamide structure and antibacterial mechanism of action (substance) Drug allergy Unknown [facility] Other (6 sources) Substance with penicillin structure and antibacterial mechanism of action (substance) Drug allergy Unknown [facility] Other (6 sources) Ceclor *CEPHALOSPORINS* Propensity to adverse reactions 11-17-19 15 Unknown [facility] Other (1 source) patient allergy list reviewed by nurse or physicia Propensity to adverse reactions 06-30-19 18 Comment:Done [facility] Other (2 sources) Cephalosporins (Antibiotic) Allergy to substance 10-12-19 24 Unknown Reaction [facility] (2 sources) Nitrofurantoin Drug Allergy 10-12-19 24 Unknown Reaction [facility] (2 sources) Sulfonamides (Antibiotic) Allergy to substance 10-12-19 24 Unknown Reaction [facility] Medications Current Medications Medication Drug Class(es) Dates Sig (Normalized) Sig (Original) 0.4 ML cyclosporine 0.5 MG/ML Ophthalmic Suspension [Restasis] (3 sources) Start: 07-28-2022 Restasis 0.05% Emulsion Refill(s) 0 Start Date: 07/28/22 Status: Ordered amLODIPine 2.5 mg oral tablet (9 sources) Dihydropyridine Calcium Channel Yosef Start: 10-09-2023 End: 01-27-2024 take 1 tablet by mouth once daily amLODIPine 2.5 mg Tab TAKE ONE TABLET BY MOUTH ONCE DAILY Start Date: 11/20/23 Status: Ordered Start: 03-27-2023 take 1 tablet by cedric th every twenty-four hours amLODIPine Besylate 2.5 MG 1 tablet Orally Once a day Mar, Active calcium carbonate 1500 mg oral tablet (4 sources) Start: 04-28-2022 take 1 mg by mouth once daily calcium (as carbonate) 600 mg oral tablet mg tab(s), Oral, Daily, Refills(s) 0 Start Date: 04/28/22 Status: Ordered cycloSPORINE 0.5 mg/ml ophthalmic suspension (7 sources) Calcineurin Inhibitor Immunosuppressant Start: 10-09-2023 take [...] BID, # 20 tab(s), Refills(s) 0, Pharmacy: [facility], 167, cm, 11/20/23 9:39:00 EDT, Height/Length Dosing, 60, kg, 11/20/23 9:39:00 EDT, Weight Dosing Start Date: 11/20/23 Status: Ordered Start: 07-28-2022 End: 08-07-2022 take 1 capsule by mouth twice daily doxycycline hyclate 100 mg Cap 100 mg = 1 cap(s), Oral, BID, X 10 day(s), # 20 cap(s), Refills(s) 0, Pharmacy: [facility], 167, cm, 07/28/22 15:34:00 EST, Height/Length [...] 2 times a week for maintenance, [facility], 167.6, cm, 09/18/21 13:22:00 EDT, Height/Length [...] Start Date: 09/20/21 Status: Ordered estrogens, conjugated (fdc) 0.625 mg/ml vaginal cream (7 sources) Estrogen Start: 10-09-2023 Conjugated Est rogens [...] Ordered levothyroxine sodium 0.05 mg oral tablet (18 sources) l-Thyroxine Start: 10-09-2023 take 50 ug [...] 9:39am Start: 08-21-2022 take 1 tablet by once daily in the morning Levothyroxine Sodium [...] (Original) losartan potassium 25 mg oral tablet (8 sources) Angiotensin 2 Receptor Yosef Start: 01-27-2024 End: 01-27-2024 take 25 mg by mouth once daily Losartan Discontinued 25 MG PO Daily January 27, 2024 12:00am January 27, 2024 3:28pm Start: 10-09-2023 End: 10-12-2023 take 25 mg by mouth once daily Losartan Discontinued 2 5 MG PO Daily October 09, 2023 12:00am October 12, 2023 3:43pm Start: 06-14-2023 take 1 tablet by cedric every twenty-four hours Losartan Potassium 25 MG [...] Chronic Chronic obstructive pulmonary disease and bronchiectasis (11 sources) Mucopurulent chronic bronchitis; Translations: [Mucopurulent chronic bronchitis] Chronic Coma; stupor; and brain damage (1 source) Somnolence; Translations: [Somnolence] Episodic Diabetes mellitus without complication (14 sources) Impaired fasting glycemia; Translations: [Impaired fasting glucose] Episodic Endometriosis (10 sources) Endometriosis, unspecified; Translations: [Endometriosis] Chronic Essential hypertension (19 sources) Essential hypertension; Translations: [Essential (primary) hypertension] [...] [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 Other nervous system disorders (1 source) Peripheral nerve disease ; Translations: [Polyneuropathy, unspecified] 01-27-2024 Chronic Other nervous system disorders (1 source) Polyneuropathy, unspecified; Translations: [Unspecified hereditary and idiopathic peripheral neuropathy] 01-27-2024 Chronic Other non-epithelial cancer of skin (10 [...] Spondylosis; intervertebral disc disorders; other back problems (15 sources) Lumbar spondylosis; Translations: [Spondylosis without myelopathy or radiculopathy, lumbar region] Chronic Spondylosis; intervertebral disc disorders; other back problems (3 sources) Low back pain; Translations: [Low back pain, unspecified] Onset: 06-30-2017 01-27-2024 Episodic Substance-related disorders (20 sources) Smoker; Translations: [Nicotine [...] NEOPLSM TRACH BRON LNG] Onset: 03-03-2022 Episodic Unclassified (1 source) Chronic cough R05.3 Results Test Name Value Interpretation Reference Range Facility Ambulatory Visit Summaryon 0 11-20-2023 Ambulatory Visit Summary Ambulatory Visit Summary MILA RIVERA :1955 Visit Date:11/20/2023 Ambulatory Visit Instructions Your [...] Follow-Up Appointments Thursday 2:45 PM EDT With: Nasir NANCE MD Where: [facility] Urology Office/Clinic Noteon 11-20-2023 Urology [...] Tight The Urethra was dilated to: 20-30 [place] with sounds. Specimens Removed: None Postoperative Information [...] Contact Information CORNELIO GATES, Nasir York, URL [facility] [place] [address]- Additional Instructions: 3 mos w/ IO UD [...] swelling, Madhu (more content not included)... Normal [facility] Comment on above: Result Comment: Electronically Signed By : Nasir NANCE MD\.br\Date and Time Signed: 11/20/23 10:19 EDT\.br\Electronically Co-Signed By: Shannan Ca.br\Date and Time Co-Signed: 11/20/23 10:16 EDT T3, TOTAL (TRIIODOTHYRONINE) on 05-23-2022 T3, TOTAL 85 ng/dL Normal 71-180 [facility] Comment on above: Performed By: #### [id number] #### [facility] [address] [place] [address] Dr. Ivana Gotti FREE T4on 05-22-2022 Free T4 [Mass/Vol] 0.69 ng/dL Critically low 0.76-1.46 [facility] Comment on above: Performed By: #### FT4 #### [facility] [address] [address] [address] Ivana Gotti TSHon 05-22-2022 TSH 4.342 uIU/mL Critically high 0.358-3.740 [facility] Comment on above: Performed By: #### TSH #### [facility] [address] [place] [address] Dr. Ivana Gotti Covid-19 PCR (CVDTB)on 03-25 SARS-CoV-2 (COVID-19) RNA ALICIA+probe Ql (Unsp spec) Not detected Normal NOT DETECTED [facility] Comment on above: Result Comment: This test is not yet dolly roved or cleared by the [place] FDA. When there are no FDA-approved or cleared tests available, and other criteria are met, FDA can make tests available under an emergency access mechanism called an Emergency Use Authorization (EUA). The EUA for this test is supported by the [place] of Health and Human Service's (HHS's) declaration [...] SARS-CoV-2. Performed By: #### C VDTB #### [facility] [address] [place] [address] Dr. Ivana Gotti CBC AUTO DIFFon 02-28-2022 BASO # 0.1 103/ul Normal 0.0-0.1 [facility] Comment on above: Performed By: #### CBC #### [facility] [address] [place] [address] Dr. Ivana Gotti Basophils/100 WBC (Bld) 0.7 % Normal 0.2-2.0 [facility] Comment on above: Performed By: #### CBC #### [facility] [address] [place] [address] Dr. Ivana Gotti EO # 0.3 103/ul Normal 0.0-0.7 [facility] Comment on above: Performed By: #### CBC #### [facility] [address] [place] [address] Dr. Ivana Gotti Eosinophils/100 WBC (Bld) 3.8 % Normal 0.9-7.0 [facility] Comment on above: Performed By: #### CBC #### [facility] [address] [place] [address] Dr. Ivana Gotti Erythrocyte distribution width (RBC) [Ratio] 13.3 % Normal 11.0-15.0 [facility] Comment on above: Performed By: #### CBC #### [facility] [address] [place] [address] Dr. Ivana Gotti Hematocrit (Bld) [Volume fraction] 45.1 % Normal 36.0-48.0 [facility] Comment on above: Performed By: #### CBC #### [facility] [address] [place] [address] Dr. Ivana Gotti Hemoglobin (Bld) [Mass/Vol] 14.9 g/dL Normal 12.0-16.0 [facility] Comment on above: Performed By: #### CBC #### [facility] [address] [place] [address] Dr. Ivana Gotti IG # 0.02 10e3/ul Normal 0.00-0.03 [facility] Comment on above: Performed By: #### CBC #### [facility] [address] [place] [address] Dr. Ivana Gotti IG % 0.3 % Normal 0.0-0.5 [facility] Comment on above: Performed By: #### CBC #### [facility] [address] [place] [address] Dr. Ivana Gotti LYMPH # 1.9 103/ul Normal 1.2-3.8 [facility] Comment on above: Performed By: #### CBC #### [facility] [address] [place] [address] Dr. Ivana Gotti Lymphocytes/100 WBC (Bld) 25.4 % Normal 20.5-60.0 [facility] Comment on above: Performed By: #### CBC #### [facility] [address] [place] [address] Dr. Ivana Gotti MANUAL DIFF REQ NO Normal [facility] Comment on above: Performed By: #### CBC #### [facility] [address] [place] [address] Dr. Ivana Gotti MCH (RBC) [Entitic mass] 31.2 pg Normal 26.7-34.0 [facility] Comment on above: Performed By: #### CBC #### [facility] [address] [place] [address] Dr. Ivana Gotti MCHC (RBC) [Mass/Vol] 33.0 g/dL Normal 29.9-35.2 [facility] Comment on above: Performed By: #### CBC #### [facility] [address] [place] [address] Dr. Ivana Gotti MCV (RBC) [Entitic vol] 94.5 fL Normal 81.0-99.0 [facility] Comment on above: Performed By: #### CBC #### [facility] [address] [place] [address] Dr. Ivana Gotti MONO # 0.5 103/ul Normal 0.3-0.8 [facility] Comment on above: Performed By: #### CBC #### [facility] [address] [place] [address] Dr. Ivana Gotti Monocytes/100 WBC (Bld) 6.9 % Normal 1.7-12.0 [facility] Comment on above: Performed By: #### CBC #### [facility] [address] [place] [address] Dr. Ivana Gotti NEUT # 4.7 103/ul Normal 1.4-6.5 [facility] Comment on above: Performed By: #### CBC #### [facility] [address] [place] [address] Dr. Ivana Gotti Neutrophils/100 WBC (Bld) 62.9 % Normal 43.0-75.0 [facility] Comment on above: Performed By: #### CBC #### [facility] [address] [place] [address] Dr. Ivana Gotti Platelet mean volume (Bld) [Entitic vol] 10.2 fL Normal 9.5-13.5 [facility] Comment on above: Performed By: #### CBC #### [facility] [address] [place] [address] Dr. Ivana Gotti PLT 262 103/ul Normal 150-450 [facility] Comment on above: Performed By: #### CBC #### [facility] [address] [place] [address] Dr. Ivana Gotti RBC 4.77 106/ul Normal 4.20-5.40 [facility] Comment on above: Performed By: #### CBC #### [facility] [address] [place] [address] Dr. Ivana Gotti WBC 7.4 103/ul Normal 4.0-11.0 [facility] Comment on above: Performed By: #### CBC #### [facility] [address] [address] [address] Ivana Gotit LIPID PROFILEon 02-28-2022 CHOL-HDL RATIO NORM SEE BELOW Normal [facility] Comment on above: Result Comment: 3.3 - 4.4 LOW RISK 4.4 - 7.1 AVERAGE RISK 7.1 - 11.0 MODERATE RISK >11.0 HIGH RISK Performed By: #### L IPID, BMP, TSH #### [facility] [address] [address] [address] Ivana Gotti Cholesterol [Mass/Vol] 240 mg/dL Critically high <=200 [facility] Comment on above: Performed By: #### LIPID, BMP, TSH #### [facility] [address] [address] [address] Ivana Gotti Cholesterol in HDL [Mass/Vol] 123 mg/dL Critically high 40-60 [facility] Comment on above: Performed By: #### LIPID, BMP, TSH #### [facility] [address] [address] [address] Ivana Gotti Cholesterol in LDL [Mass/Vol] 107.8 mg/dL Normal [facility] Comment on above: Performed By: #### LIPID, BMP, TSH #### [facility] [address] [address] [address] Ivana Gotti Cholesterol.tota l/Cholesterol in HDL [Mass ratio] 2.0 {ratio} Normal [facility] Comment on above: Performed By: #### LIPID, BMP, TSH #### [facility] [address] [address] [address] Ivana Gotti HDL NORMAL > or = 60 mg/dl - LO W CARDIOVASCULAR RISK <40 mg/dl - HIGH CARDIOVASCULAR RISK Normal [facility] Comment on above: Performed By: #### LIPID, BMP, TSH #### [facility] [address] [address] [address] Ivana Gotti LDL CALC NORMAL SEE BELOW Normal [facility] Comment on above: Result Comment: <100 mg/dl OPTIMAL 100 - 129 mg/dl NEAR OR ABOVE OPTIMAL 130 - 159 mg/dl BORDERLINE HIGH 160 - 189 mg/dl HIGH >190 mg/dl VERY HIGH Performed By: #### L IPID, BMP, TSH #### [facility] [address] [place], [place] [address] Dr. Ivana Gotti Triglyceride [Mass/Vol] 46 mg/dL Normal <=150 [facility] Comment on above: Performed By: #### LIPID, BMP, TSH #### [facility] [address] [place], [place] [address] Dr. Ivana Gotti VLDL CALC 9.2 mg/dL Normal [facility] Comment on above: Performed By: #### LIPID, BMP, TSH #### [facility] [address] [place], [place] [address] Dr. Ivana Gotti MG MAMM SCREEN 3D PADMINI CADon 02-28-2022 MG MAMM SCREEN 3D PADMINI CAD Patient: MILA RIVERA Exam Date: 02/28/2022 : 1955 Gender:F Ordering : DR ROB JIMÉNEZ D.O. Admission #: [id number] Family : Order #: [id number] CLICK HERE TO VIEW EXAM RADIOLOGY REPORT [...] lung cancer at age 72. LOCATION: [facility] BREAST COMPOSITION: Heterogeneously dense,which may obscure [...] MD on 02/28/2022 at 08:40 Normal [facility] PROF CHEM 8 (BAS METB)on Anion gap [Moles/Vol] 10.3 mmol/L Normal [facility] Comment on above: Performed By: #### LIPID, BMP, TSH #### [facility] [address] [place] [address] Dr. Ivana Gotti Calcium [Mass/Vol] 9.5 mg/dL Normal 8.5-10.1 [facility] Comment on above: Performed By: #### LIPID, BMP, TSH #### [facility] [address] [place] [address] Dr. Ivana Gotti Chloride [Moles/Vol] 104 mmol/L Normal 98-107 [facility] Comment on above: Performed By: #### LIPID, BMP, TSH #### [facility] [address] [place] [address] Dr. Ivana Gotti CO2 [Moles/Vol] 26.8 mmol/L Normal 21.0-32.0 [facility] Comment on above: Performed By: #### LIPID, BMP, TSH #### [facility] [address] [place] [address] Dr. Ivana Gotti Creatinine [Mass/Vol] 0.85 mg/dL Normal 0.55-1.02 [facility] Comment on above: Performed By: #### LIPID, BMP, TSH #### [facility] [address] [place] [address] Dr. Ivana Gotti EGFR-AF LUXEMBOURGER >60 Normal >=60 [facility] Comment on above: Performed By: #### LIPID, BMP, TSH #### [facility] [address] [place] [address] Dr. Ivana Gotti EGFR-NON AF LUXEMBOURGER >60 Normal >=60 [facility] Comment on above: Performed By: #### LIPID, BMP, TSH #### [facility] [address] [place] [address] Dr. Ivana Gotti Glucose [Mass/Vol] 117 mg/dL Critically high 74-106 [facility] Comment on above: Performed By: #### LIPID, BMP, TSH #### [facility] [address] [address] [address] Ivana Gotti Potassium [Moles/Vol] 4.1 mmol/L Normal 3.5-5.1 [facility] Comment on above: Performed By: #### LIPID, BMP, TSH #### [facility] [address] [address] [address] Ivana Gotti Sodium [Moles/Vol] 137 mmol/L Normal 136-145 [facility] Comment on above: Performed By: #### LIPID, BMP, TSH #### [facility] [address] [address] [address] Ivana Gotti Urea nitrogen [Mass/Vol] 19.0 mg/dL Critically high 7.0-18.0 [facility] Comment on above: Performed By: #### LIPID, BMP, TSH #### [facility] [address] [address] [address] Ivana Gotti Urea nitrogen/Creatin ine [Mass ratio] 22.4 mg/mg Normal [facility] Comment on above: Performed By: #### LIPID, BMP, TSH #### [facility] [address] [address] [address] Ivana Gotti TSHon 02-28-2022 TSH 4.341 uIU/mL Critically high 0.358-3.740 [facility] Comment on above: Performed By: #### LIPID, BMP, TSH ####[facility] [id number] [address]Dr. Ivana Gotti VITAMIN D 25 OHon 02-28-2022 VIT D 25-OH 16.8 ng/mL Normal [facility] Comment on above: Performed By: #### VITAD #### [facility] [address] [place] [address] Dr. Ivana Gotti VIT D RANGES SEE BELOW Normal [facility] Comment on above: Result Comment: <20 ng/mL Vit D deficien t 20 - <30 ng/mL Vit D insufficient 30 - 100 ng/mL Vit D sufficient >100 ng/mL Potential Toxicity Performed By: #### V ITAD #### [facility] [address] [address] [address] Ivana Gotti Vital Signs Date Time Vital Sign Value Performing Clinician Facility 01-27-2024 14:45-0400 Body height 167.64 cm [facility] 01-27-2024 14:45-0400 Body mass index (BMI) [Ratio] 24 kg/m2 [facility] 01-27-2024 14:45-0400 Body weight 67.58 kg [facility] 01-27-2024 14:45-0400 Diastolic blood pressure 93 mm[Hg] [facility] 01-27-2024 14:45-0400 Heart rate 111 /min [facility] 01-27-2024 14:45-0400 Respiratory rate 12 /min [facility] 01-27-2024 14:45-0400 Systolic blood pressure 162 mm[Hg] [facility] 11-20-2023 09:36-0400 Blood Pressure Location Nasir NANCE [facility] 11-20-2023 09:36-0400 Diastolic blood pressure 76 mm[Hg] Nasir NANCE [facility] 11-20-2023 09:36-0400 Heart rate 94 /min Nasir NANCE [facility] 11-20-2023 09:36-0400 Respiratory rate 16 /min Nasir NANCE [facility] 11-20-2023 09:36-0400 Systolic blood pressure 134 mm[Hg] Nasir NANCE [facility] 10-12-2023 15:44-0400 Body height 167.64 cm [facility] 10-12-2023 15:44-0400 Body mass index (BMI) [Ratio] 23.3 kg/m2 [facility] 10-12-2023 15:44-0400 Body weight 65.54 kg [facility] 10-12-2023 15:44-0400 Diastolic blood pressure 75 mm[Hg] [facility] 10-12-2023 15:44-0400 Heart rate 93 /min [facility] 10-12-2023 15:44-0400 Respiratory rate 12 /min [facility] 10-12-2023 15:44-0400 Systolic blood pressure 115 mm[Hg] [facility] 04-30-2023 19:53-0500 Body height 167.64 cm Orly Pedersen Other [facility] [employer] Other 04-13-2023 15:00-0500 Body height 167.64 cm Rob Ball Other [facility] [employer] Other 04-13-2023 15:00-0500 Body mass index (BMI) [Ratio] 22.88 kg/m2 Rob Ball Other [facility] [employer] Other 04-13-2023 15:00-0500 Body weight 64.32 kg Rob Ball Other [facility] [employer] Other 04-13-2023 15:00-0500 Diastolic blood pressure 87 mm[Hg] Rob Ball Other [facility] [employer] Other 04-13-2023 15:00-0500 Respiratory rate 12 /min Rob Ball Other [facility] [employer] Other 04-13-2023 15:00-0500 Systolic blood pressure 153 mm[Hg] Rob Ball Other [employer] Other 10-22-2022 15:30-0400 Body height 167.64 cm Rob Ball Other [employer] Other 10-22-2022 15:30-0400 Body mass index (BMI) [Ratio] 22.34 kg/m2 Rob Ball Other [employer] Other 10-22-2022 15:30-0400 Body weight 62.78 kg Rob Ball Other [facility] [email or web address] Other 10-22-2022 15:30-0400 Diastolic blood pressure 92 mm[Hg] Rob Ball Other [facility] [employer] Other 10-22-2022 15:30-0400 Respiratory rate 12 /min Rob Ball Other [employer] Other 10-22-2022 15:30-0400 Systolic blood pressure 168 mm[Hg] Rob Ball Other [employer] Other 08-11-2022 11:57-0400 Blood Pressure Location Nasir NANCE [facility] 08-11-2022 11:57-0400 Diastolic blood pressure 89 mm[Hg] Nasir NANCE [facility] 08-11-2022 11:57-0400 Heart rate 82 /min Nasir NANCE [facility] 08-11-2022 11:57-0400 Respiratory rate 16 /min Nasir NANCE [facility] 08-11-2022 11:57-0400 Systolic blood pressure 132 mm[Hg] Nasir NANCE [facility] 04-28-2022 16:11-0500 Blood Pressure Location Nasir NANCE [facility] 04-28-2022 16:11-0500 Diastolic blood pressure 82 mm[Hg] Nasir NANCE [facility] 04-28-2022 16:11-0500 Heart rate 70 /min Nasir NANCE [facility] 04-28-2022 16:11-0500 Respiratory rate 16 /min Nasir NANCE [facility] 04-28-2022 16:11-0500 Systolic blood pressure 127 mm[Hg] Nasir NANCE [facility] 03-04-2022 15:23-0400 Blood Pressure Location [facility] [place] 03-04-2022 15:23-0400 Diastolic blood pressure 84 mm[Hg] [facility] [place] 03-04-2022 15:23-0400 Heart rate 72 /min [facility] [place] 03-04-2022 15:23-0400 Respiratory rate 16 /min [facility] [place] 03-04-2022 15:23-0400 Systolic blood pressure 136 mm[Hg] [facility] [place] 02-03-2022 16:22-0400 Blood Pressure Location Nasir NANCE [facility] 02-03-2022 16:22-0400 Diastolic blood pressure 88 mm[Hg] Nasir NANCE [facility] 02-03-2022 16:22-0400 Heart rate 74 /min Nasir NANCE [facility] 02-03-2022 16:22-0400 Respiratory rate 16 /min Nasir NANCE [facility] 02-03-2022 16:22-0400 Systolic blood pressure 137 mm[Hg] Nasir NANCE [facility] 10-14-2021 15:54-0400 Blood Pressure Location Nasir NANCE [facility] 10-14-2021 15:54-0400 Diastolic blood pressure 87 mm[Hg] Nasir NANCE [facility] 10-14-2021 15:54-0400 Heart rate 80 /min Nasir NANCE [facility] 10-14-2021 15:54-0400 Respiratory rate 16 /min Nasir NANCE [facility] 10-14-2021 15:54-0400 Systolic blood pressure 137 mm[Hg] Nasir NANCE [facility] 09-18-2021 13:19-0400 Blood Pressure Location Nasir NANCE [facility] 09-18-2021 13:19-0400 Diastolic blood pressure 85 mm[Hg] Nasir NANCE [facility] 09-18-2021 13:19-0400 Heart rate 84 /min Nasir NANCE [facility] 09-18-2021 13:19-0400 Systolic blood pressure 152 mm[Hg] Nasir NANCE [facility] Encounters Encounter Date Encounter Type Care Provider Facility Start: 02-15-2024 ambulatory Nasir Jaylen CORNELIO Facili ty:[facility] Start: 01-27-2024 End: 01-27-2024 ambulatory [facility] Work Phone: Start: 01-27-2024 End: 01-27-2024 Patient encounter procedure [facility] Physician [facility] Work Phone: Start: 11-20-2023 End: 11-20-2023 ambulatory Nasir R NANCE Facility:[facility] [place] Start: 11-20-2023 End: 11-20-2023 Patient encounter procedure Nasir NANCE [facility] Start: 10-12-2023 End: 10-12-2023 ambulatory [facility] Work Phone: Start: 10-12-2023 End: 10-12-2023 Patient encounter procedure [facility] Physician [facility] Work Phone: Start: 07-30-2023 Non-patient / Non-visit [facility] Physician [facility] [employer] Work Phone: Start: 06-14-2023 End: 06-14-2023 ambulatory Orly Pedersen Other [employer] Other Start: 06-14-2023 Telephone encounter Orly Pedersen [facility] Start: 05-04-2023 End: 05-04-2023 ambulatory Rob Tino Other [employer] Other Start: 05-04-2023 Telephone encounter Rob Jiménez [facility] Start: 04-30-2023 End: 04-30-2023 ambulatory Orly Pedersen Other [employer] Other Start: 04-30-2023 Telephone encounter Orly Nuvia [facility] Start: 04-13-2023 End: 04-13-2023 ambulatory Rob Jiménez Other [employer] Other Start: 04-13-2023 Encounter for genera l adult medical examination without abnormal findings Rob Jiménez [facility] Start: 04-13-2023 Periodic preventive med est patient 65yrs& older Rob Jiménez [facility] Start: 03-27-2023 End: 03-27-2023 ambulatory Rob Jiménez Other [employer] Other Start: 03-27-2023 Office outpatient vi sit 15 minutes Rob Jiménez [facility] Start: 01-30-2023 ambulatory Nasir NANCE Facili ty:[facility] [place] Start: 11-09-2022 End: 11-09-2022 ambulatory Orly Pedersen Other [facility] Other Start: 11-09-2022 Encounter by ata Pedersen [facility] Start: 10-23-2022 End: 10-23-2022 ambulatory Orly Pedersen Other [employer] Other Start: 10-23-2022 Telephone encounter Orly Nuvia [facility] Start: 10-22-2022 End: 10-22-2022 ambulatory Rob Jiménez Other [employer] Other Start: 10-22-2022 Office outpatient vi sit 25 minutes Rob Jiménez [facility] Start: 09-28-2022 End: 09-28-2022 ambulatory KENDALL LANDIS . Facility: Start: 08-11-2022 End: 08-11-2022 Patient encounter procedure Nasir NANCE [facility] Start: 07-28-2022 End: 07-28-2022 Patient encounter procedure Nasir R CORNELIO [facility] Start: 05-22-2022 End: 05-23-[address] ROB JIMÉNEZ Facility:[facility] Start: 04-28-2022 End: 04-28-2022 Patient encounter procedure Nasir NANCE [facility] Start: 04-09-2022 End: 04-09-[address] LINK CALHOUN . Facility:[facility] Start: 04-08-2022 Encounter for preprocedural laboratory examination DR LINK CALHOUN . [facility] Start: 04-05-2022 End: 04-06-[address] LINK CALHOUN . Facility:[facility] Start: 04-05-2022 End: 04-06-2022 Encounter for preprocedural laboratory examination DR LINK CALHOUN . Facility:[facility] Start: 03-04-2022 End: 03-04-2022 Patient encounter procedure Link CALHOUN [facility] Nill/Said [place] Start: 03-03-2022 Encounter for genera l adult medical examination without abnormal findings DR ROB JIMÉNEZ [facility] Start: 02-28-2022 End: 03-01-[address] ROB JIMÉNEZ Facility:[facility] Start: 02-28-2022 End: 03-01-2022 Encounter for general adult medical examination without abnormal findings DR ROB JIMÉNEZ Facility:[facility] Start: 02-12-2022 Adult health examination Kong Jiménez Other [employer] Other Start: 02-12-2022 Gynecological examination vee Jiménez Other [facility] Other Start: 02-03-2022 End: 02-03-2022 Patient encounter procedure Nasir NANCE [facility] [place] Start: 10-14-2021 End: 10-14-2021 Patient encounter procedure Nasir NANCE [facility] Start: 09-18-2021 End: 09-18-2021 Lab Drop off Nasir NANCE [facility] Start: 09-18-2021 End: 09-18-2021 Patient encounter procedure Nasir NANCE [facility] Procedures Date Procedure Procedure Detail Performing Clinician [...] above: x2 section Link [place] Cholecystectomy Nasir ODOM Colonoscopy abnormal (finding) Nasir [...] Laparoscopy Link CALHOUN Lysis of adhesions Link ALVAREZ Screening for malign ant neoplasm of breast Rob Jiménez Other skin cancer removal 3 Rigoberto NANCE Comment on above: from face Total abdominal hysterectomy iLnk CALHOUN Plan of Treatment Date Care Activity Detail Author XR Cervical spine Vi ews W flexion and W extension [facility] enter Immunizations Immunization Date Immunization Notes Care Provider Sapphire bravo 05-13-2021 SARS-CoV-2 (COVID-19 ) Ad26 vaccine, recombinant Nasir NANCE [facility] Comment on above: Result Comment: 2022: [id number] 04-24-2021 SARS-CoV-2 (COVID-19 ) Ad26 vaccine, recombinant Nasir NANCE [facility] 10-19-2020 SARS-CoV-2 (COVID-19 ) Ad26 vaccine, recombinant Nasir NANCE [facility] Comment on above: Result Comment: 2022: [id number] 09-22-2020 SARS-CoV-2 (COVID-19 ) Ad26 vaccine, recombinant Nasir NANCE [facility] 09-01-2020 SARS-CoV-2 (COVID-19 ) [id number] Nasir NANCE [facility] 05-01-2020 SARS-CoV-2 (COVID-19 ) mRNA BNT-162b2 vax Nasir NANCE [facility] 04-03-2020 SARS-CoV-2 (COVID-19 ) mRNA-1273 vaccine Nasir NANCE [facility] Payers Date Payer Category Payer Unknown [id number] 1955 Unknown [id number] 2.16.84 [id number] 1955 Unknown [id number] 2.16.84 [id number] 1955 Unknown [id number] 2.16.84 [id number] 1955 Unknown [id number] 2.16.84 [id number] 1955 Unknown [id number] 2.16.84 [id number] 1955 Unknown [id number] 2.16.8 [id number] 1955 Unknown [id number] 2.16.8 [id number] 1955 Unknown [id number] 2.16.8 [id number] Social History Date Type Detail Facility Start: 09-18-2021 End: 11-20-2023 Tobacco smoking status Heavy tobacco smoker (finding) [facility] Tobacco smoking status Smoker (finding) [facility] Sex Assigned At Female [facility] Tobacco smoking status Never [facility] [place] Start: 1955 Sex Assigned At Female F [facility] Functional Status Date Assessment Result Facility 11-20-2023 Functional Status N/A [facility] 08-11-2022 Functional Status N/A [facility] 07-28-2022 Functional Status N/A [facility] 04-28-2022 Functional Status N/A [facility] 03-04-2022 Functional Status N/A [facility] Functional Status N/A [facility] Clinical Notes 09-18-2021 to 11-20-2023 Note [...] including vitamins, herbs, eye drops, creams, and bxkx-nud-rrettom medicines. Any problems you or family members [...] provider tells you to take them. Taking mdfa-arn-itgavcm medicines, vitamins, herbs, and supplements. General instructions [...] Follow these instructions at home: Medicines Take djqv-lwb-zsaydna and prescription medicines only as told by [...] actions to prevent or treat constipation: ?Take osyt-wvu-gjpjiiv or prescription medicines. ?Eat foods that are [...] provider. Document Revised: 06/23/2019 Document Reviewed: 06/23/2019 [employer] Patient Education 2022 [employer]. Follow Up Care 09/07/2023 14:21:57 With:CORNELIO GATES, Nasir [place], URL Address: [address] [place], [place] [id number]- When: Unknown [facility] 11-20-2023 Note Patient Education Urology Urethral Dilation [...] including vitamins, herbs, eye drops, creams, and yzmk-xez-kjyjooo medicines. ? Any problems you or family [...] tells you to take them. ? Taking lapx-tux-bxevxvv medicines, vitamins, herbs, and supplements. General instructions [...] these instructions at home: Medicines ? Take qnxm-ywg-eahrswz and prescription medicines only as told by [...] to prevent or treat constipation: ? Take dqqk-erl-yqnkbtl or prescription medicines. ? Eat foods that [...] bleeding when you (more content not included)... [facility] 06-14-2023 Evaluation note Encounter Date Diagnosis Assessment Notes May, Primary hypertension (ICD-10 - I10) [facility] Other 11-20-2023 Evaluation note* Encounter Date Diagnosis [...] Mar, Other specified hypothyroidism (ICD-10 - E03.8) 20 Nov, 2023 Nicotine dependence, cigarettes, uncomplicated (ICD-10 - F17.210) [...] patient on monthly SBE and yearly mammograms. [facility] Other 11-03-2023 Evaluation note* Encounter Date Diagnosis [...] continue exercise to achieve/maintain a normal BMI. [facility] Other 06-01-2023 Evaluation note* Encounter Date Diagnosis Assessment Notes Treatment Notes Treatment Clinical Notes Oct, Primary hypertension (ICD-10 - I10) [facility] Other 05-31-2023 Evaluation note* Encounter Date Diagnosis [...] Vitamin D supplements. Recheck Vitamin D level [facility] Other 03-20-2023 Hospital Discharge instructions Patient Education [...] including vitamins, herbs, eye drops, creams, and nfzq-elt-wytlcnb medicines. Any problems you or family members [...] provider tells you to take them. Taking mftb-ham-lmaalvg medicines, vitamins, herbs, and supplements. General instructions [...] Follow these instructions at home: Medicines Take jnnn-xof-zjlwnip and prescription medicines only as told by [...] actions to prevent or treat constipation: ?Take yfgh-bwo-qzzaspi or prescription medicines. ?Eat foods that are [...] 06/06/2016 Document Revised: 06/23/2019 Document Reviewed: 06/23/2019 [employer] Patient Education 2020 [employer]. Follow Up Care 07/28/2022 15:53:37 With:CORNELIO GATES, Nasir R, URL Address: [facility] [address] [place] [address]- When: Unknown [facility] [place] 03-06-2023 Hospital Discharge instructions Patient Education 07/28/2022 [...] including vitamins, herbs, eye drops, creams, and kntv-fyq-zdzgurg medicines. Any problems you or family members [...] provider tells you to take them. Taking ujuw-lkg-ftfolvr medicines, vitamins, herbs, and supplements. General instructions [...] Follow these instructions at home: Medicines Take ofgl-mlk-toffetz and prescription medicines only as told by [...] actions to prevent or treat constipation: ?Take zgbb-aik-zojibqw or prescription medicines. ?Eat foods that are [...] 06/06/2016 Document Revised: 06/23/2019 Document Reviewed: 06/23/2019 [employer] Patient Education 2019 [employer]. Follow Up Care 04/28/2022 17:00:59 With:CORNELIO GATES, Nasir [place], URL Address: [facility] [address] [place] [address]- When: Unknown [facility] 12-05-2022 Hospital Discharge instructions Patient Education 04/28/2022 [...] including vitamins, herbs, eye drops, creams, and tzln-ymj-mczzewr medicines. Any problems you or family members [...] provider tells you to take them. Taking lznk-ggb-cxcknvw medicines, vitamins, herbs, and supplements. General instructions [...] Follow these instructions at home: Medicines Take ksfn-jmd-wfyoonq and prescription medicines only as told by [...] actions to prevent or treat constipation: ?Take yoqo-gcy-unyipjj or prescription medicines. ?Eat foods that are [...] Document Reviewed: 06/23/2019 [employer] Patient Education 2019 [employer]. Follow Up Care 02/03/2022 16:42:32 With:CORNELIO GATES, LARON Crawford Address: [facility] [address], [place] [address]- When: Unknown [facility] 11-16-2022 NoteOPERATIVE NOTE OPERATION DATE: 04/09/2022 PREOPERATIVE [...] be 10 years. CC: Rob Jiménez D.O.[id number] Hospital Discharge instructions Patient Education 02/03/2022 16:35:49 [...] reconstructed. Follow these instructions at home: Take aaul-ivb-dsvgamu and prescription medicines only as told by [...] 06/06/2016 Document Revised: 12/22/2018 Document Reviewed: 12/22/2018 [employer] Patient Education 2019 [employer]. Follow Up Care 10/14/2021 16:58:02 With:CORNELIO GATES, Nasir York, URL Address: [facility] [address] [place] [address] [phone] When:05/05/2022 Comments:BRITANY [facility] 05-23-2022 Hospital Discharge instructions Patient Education 10/14/2021 [...] reconstructed. Follow these instructions at home: Take owkg-cdi-avivzje and prescription medicines only as told by [...] 06/06/2016 Document Revised: 12/22/2018 Document Reviewed: 12/22/2018 [employer] Patient Education 2020 [employer]. Follow Up Care 09/18/2021 14:15:26 With:CORNELIO GATES, Nasir York, URL Address: [facility] [address] [place] [address]- When: Unknown [facility] 04-27-2022 Hospital Discharge instructions Patient [...] including vitamins, herbs, eye drops, creams, and hoip-xjb-tthdsfv medicines. Any problems you or family members [...] provider tells you to take them. Taking ikrp-cfw-bthwfku medicines, vitamins, herbs, and supplements. General instructions [...] Follow these instructions at home: Medicines Take obtn-rqj-pvcspbz and prescription medicines only as told by [...] actions to prevent or treat constipation: ?Take mdzm-rji-sqcrrjj or prescription medicines. ?Eat foods that are [...] 06/06/2016 Document Revised: 06/23/2019 Document Reviewed: 06/23/2019 [employer] Patient Education 2020 [employer]. Follow Up Care 08/29/2021 15:32:29 With:Nasir NANCE MD, URL Address: [facility] [address] [place] [address]- Business (1) When: Unknown [facility] Evaluation + Plan note Future Appointments Appointment Date:10/14/2021 03:00:00 PM Scheduled Provider:Nasir NANCE MD Location:[facility] Appointment Type:URO Office Visit [facility] Evaluation + Plan note Future Appointments Appointment Date:10/14/2021 03:00:00 PM Scheduled Provider:Nasir NANCE MD Location:[facility] Appointment Type:URO Office Visit Diagnostic Tests Pending * [facility] Appointment Date:02/03/2022 03:30:00 PM Scheduled Provider:Nasir NANCE MD Location:[facility] Appointment Type:URO Office Visit [facility] evaluation + Plan note Future Appointments Appointment Date:04/28/2022 03:30:00 PM Scheduled Provider:Nasir NANCE MD Location:[facility] Appointment Type:URO Office Visit [facility] evaluation + Plan note Future Appointments Appointment Date:07/28/2022 03:15:00 PM Scheduled Provider:Nasir NANCE MD Location:[facility] Appointment Type:URO Office Visit [facility] evaluation + Plan note Future Appointments Appointment Date:08/11/2022 11:45:00 AM Scheduled Provider:Nasir NANCE MD Location:[facility] Appointment Type:URO Office Visit [facility] evaluation + Plan note Future Appointments Appointment Date:11/17/2022 03:15:00 PM Scheduled Provider:Nasir NANCE MD Location:[facility] Appointment Type:URO Office Visit [facility] evaluation + Plan note Future Appointments Appointment Date:02/15/2024 02:45:00 PM Scheduled Provider:Nasir NANCE MD Location:[facility] Appointment Type:URO Office Visit [facility] evaluation noteNo [facility] [employer] Other evaluation note* Diagnosis Onset Date Resolution Status CORTNEY (generalized anxiety disorder) acute Hypothyroid acute IFG (impaired fasting glucose) acute Mucopurulent chronic bronchitis acute Nicotine dependence, cigarettes, uncomplicated acute Primary hypertension acute [facility] Work Phone: evaluation note* Diagnosis Onset Date Resolution Status Cervical spondylosis acute Mucopurulent chronic bronchitis acute Neck pain acute Nicotine dependence, cigarettes, uncomplicated acute Peripheral neuropathy acute Primary hypertension acute [facility] Work Phone: History general Narrative - [...] EGD 2005 Hospitalization History SEE SURGICAL HX [employer] Other Hospital course Narrative No data available for this section [facility] Discharge instructions No data available for this section [facility] No data available for this section [facility] [place] Summary Purpose Family History Relationship Condition Age at Onset Recorded Date/T mikaela father Heart disease Unknown Advance Directives Advance Directive Response Recorded Date/ Time Advance Directives No June 17, 2023 10:24am Chief Complaint and Reason for Visit Chief Complaint Amb Documentation 6 month follow up Reason for Visit CORTNEY (generalized anx iety disorder) Hypothyroid IFG (impaired fasting glucose) Mucopurulent chronic bronchitis Nicotine dependence, cigarettes, uncomplicated Primary hypertension Chief Complaint neck pain Reason for Visit Cervical spondylosis Mucopurulent chronic bronchitis Neck pain Nicotine dependence, cigarettes, uncomplicated Peripheral neuropathy Primary hypertension Additional Source Comments Care Team (unrecognized sect ion and content) Team Status: Active Member Role Status Dates Rob Jiménez DO Primary Care Provider Active Team Status: Inactive Member Role Status Dates Rob Jiménez DO Primary Care Provide r, Attending Provider Active Start: January 27, 2024 End: January 27, 2024 Team Status: Active Member Role Status Dates Rob Jiménez DO Primary Care Provider Active Team Status: Active Member Role Status Dates Rob Jiménez DO Primary Care Provider Active Start: July 30, 2023 SHANNAN Kebede Attending Provider Active Start : July 30, 2023 Team Status: Inactive Member Role Status Dates Rob Jiménez DO Primary Care Provide r, Attending Provider Active Start: October 12, 2023 End: October 12, 2023 Team Status: Inactive Member Role Status Dates Rob Jiménez , Primary Care Provide r, Attending Provider Active Start: January 27, 2024 End: January 27, 2024 INFORMATION SOURCE (unrecogn ized section and content) DATE CREATED AUTHOR 10/01/2022 [facility] DATE CREATED AUTHOR AUTHOR'S ORGANIZ ATION 11/21/2023 [facility] REASON FOR VISIT (unrecogniz ed section and content) weight lossRe-Send RefillUpd ate Demographics - Personal InfoSinuses- [phone] InformationLab/mamm resultsNo InformationNo Information Goals (unrecognized section [...] BE BASED ON THE PRIMARY CLINICAL RECORDS. [employer] [facility]. provides no warranty or guarantee of the accuracy or completeness of information in this document.
[2024-02-06 08:10] LABS: Basophils Absolute Auto 0.1 10^3/uL (0.0-0.1); Basophils Percent Auto 0.7 % (0.2-2.0); Eosinophils Absolute Auto 0.3 10^3/uL (0.0-0.7); Eosinophils Percent Auto 4.8 % (0.9-7.0); Hematocrit 44.6 % (36.0-48.0); Hemoglobin 14.6 g/dL (12.0-16.0); Immature Granulocytes Abs Auto 0.02 10^3/uL (0.00-0.03); Immature Granulocytes Pct Auto 0.3 % (0.0-0.5); Lymphocytes Percent Auto 29.3 % (20.5-60.0); Mean Corpuscular HGB Conc 32.7 g/dL (29.9-35.2); Mean Corpuscular Hemoglobin 31.1 pg (26.7-34.0); Mean Corpuscular Volume 94.9 fL (81.0-99.0); Mean Platelet Volume 11.3 fL (9.5-13.5); Monocytes Absolute Auto 0.6 10^3/uL (0.3-0.8); Monocytes Percent Auto 9.2 % (1.7-12.0); Neutrophils Absolute Auto 3.8 10^3/uL (1.4-6.5); Neutrophils Percent Auto 55.7 % (43.0-75.0); Platelet Count 173 10^3/uL (150-450); Red Cell Distribution Width 13.7 % (11.0-15.0); White Blood Count 6.7 10^3/uL (4.0-11.0)
[2024-02-07 09:07] LABS: Vitamin B12 477 pg/mL (232-1245)
[2024-02-08 15:07] LABS: Albumin 3.9 g/dL (2.9-4.4); Alpha-1-Globulin 0.2 g/dL (0.0-0.4); Alpha-2-Globulin 0.7 g/dL (0.4-1.0); Free Kappa Lt Chains,S 25.9 mg/L (3.3-19.4); Gamma Globulin 1.1 g/dL (0.4-1.8); Immunoglobulin A, Qn, Serum 225 mg/dL (87-352); Immunoglobulin G, Qn, Serum 1127 mg/dL (586-1602); Immunoglobulin M, Qn, Serum 61 mg/dL (26-217); Protein, Total 7.1 g/dL (6.0-8.5)
== END 2024-02-06 07:49 | disposition home or self-care (01) ==
LOC: LAB 07:50
PROVIDERS: PCP Internal Medicine; Visit Provider Internal Medicine
DX: G62.9 Polyneuropathy, unspecified (principal); E03.8 Other specified hypothyroidism; E06.3 Autoimmune thyroiditis; R73.01 Impaired fasting glucose; I10 Essential (primary) hypertension; R53.83 Other fatigue
CPT/HCPCS: 36415; 82607; 82728; 82784; 83521; 84155; 84165; 85025

== ENCOUNTER 2024-05-09 07:56 | Outpatient (OUT) | payer OTHER, SELFPAY ==
--- NOTE | 2024-05-09 08:03 | MM_ITS ---
Patient Name: MIKE RIVERA MR#: [id number] : 1955 Exam Date: 05/09/2024 Ordering Doctor: DR Rob Jiménez D.O. RADIOLOGY REPORT PROCEDURE: MM TOMOSYNTHESIS SCREENING BI COMPARISON: MG MAMM SCREEN 3D PADMINI CAD, 02/28/2022. MM TOMOSYNTHESIS SCREENING BI, 04/30/2023. INDICATIONS: Screening Calculator Name NCI Breast Cancer Risk Assessment Tool 5 Year Breast Cancer Risk 1.50% Lifetime Breast Cancer Risk 5.20% Personal Breast Cancer No Personal Ovarian Cancer No Treatments None Family Cancers Aunt-maternal with breast cancer at age 60; Aunt-maternal with breast cancer at age 60; Aunt-maternal with breast cancer at age 60; Grandmother-maternal with ovarian cancer at age 58; Grandfather-paternal with lung cancer at age 70. LOCATION: [facility] BREAST COMPOSITION: The breasts are heterogeneously dense,which may obscure small masses. FINDINGS: DIAGNOSTIC CATEGORY 1--NEGATIVE. NO CHANGE FROM COMPARISON ASSESSMENT. Scattered benign-appearing calcifications are present. RIGHT BREAST: No significant suspicious finding. LEFT BREAST: No significant suspicious finding. RECOMMENDATIONS: ROUTINE MAMMOGRAM AND CLINICAL EVALUATION IN 12 MONTHS. PLEASE NOTE: A NORMAL MAMMOGRAM DOES NOT EXCLUDE THE POSSIBILITY OF BREAST CANCER. A CLINICALLY SUSPICIOUS PALPABLE LUMP SHOULD BE BIOPSIED. Dictated by: Merrick Tobar MD on 05/09/2024 at 10:18 Approved by: Merrick Tobar MD on 05/09/2024 at 10:19
--- NOTE | 2024-05-09 08:03 | CT_ITS ---
[address] [address] Patient Name: MIKE RIVERA MRN: [id number] date: 1955 Sex: F Assigned Patient Location: MAMMO Current Patient Location: Accession/Order Number: [id number] Exam Date: 05/09/2024 08:20 Report Date: 05/10/2024 14:29 At the request of: CHANDA SEGUNDO Procedure: CT lung screening low-dose EXAMINATION: CT lung screening low-dose HISTORY: Nicotine Dependence COMPARISON: No relevant comparison available. TECHNIQUE: Axial, Coronal, and Sagittal images were created without the administration of IV contrast material. Dose reduction techniques were achieved by using automated exposure control and/or adjustment of mA and/or kV according to patient size and/or use of iterative reconstruction technique. FINDINGS: LUNGS: A few scattered punctate pulmonary nodules are observed, nonspecific PLEURA: No mass, effusion, or pneumothorax. VASCULATURE: No abnormality. JAIDA: Small calcified right hilar lymph nodes MEDIASTINUM: No mass or pathologic adenopathy. CARDIAC: No enlargement or pericardial effusion CORONARY ARTERIES: Coronary calcifications are mild. AORTA: No aneurysm or dissection. CHEST WALL: No mass or axillary adenopathy BONES: No bone lesion or fracture. LIMITED ABDOMEN: Surgical clips from cholecystectomy. 3 cm left adrenal hypodense mass possibly an adenoma OTHER: Negative. CT/CT lung screening low-dose IMPRESSION: LUNG SCREENING: Lung-RADS Category 2- Benign Appearance or Behavior. Nodules with a very low likelihood of becoming a clinically active cancer due to size or lack of growth. 2. Continue annual screening with LDCT in 12 months. Electronically authenticated by: DALJIT MARTINEZ Date: 05/10/2024 14:29
--- OUTSIDE RECORDS SUMMARY | 2024-05-09 08:14 | XMS_ITS | CCD ---
Author Organization [facility] Care Team Providers Care Vp Genetic Name Role Phone ROB JIMÉNEZ Primary Care Physician [phone] KENDALL ELLIOTT Attending Unavailable SABIHA ., KENDALL Consulting Unavailable SABIHA ., KENDALL Admitting Unavailable TINO, DR ARMAS Primary Care Unavailable NILL ., DR MAZA Admitting Unavailable NILL ., DR MAZA Attending Unavailable NILL ., DR MAZA Consulting Unavailable TINO, DR ARMAS Primary Care Unavailable KATHY, HARRY Consulting Unavailable KUCHIPUDI, MANUEL Consulting Unavailable TINO, DR ARMAS Admitting Unavailable TINO, DR ARMAS Attending Unavailable BALL, DR ARMAS Consulting Unavailable BALL, DR ARMAS Primary Care Unavailable BALL, DR AMRAS Attending Unavailable BALL, DR ARMAS Consulting Unavailable BALL, DR ARMAS Primary Care Unavailable BALL, DR ARMAS Admitting Unavailable WEST, DR DALJIT Wong Consulting Unavailable NILL ., DR MAZA Admitting Unavailable NILL ., DR MAZA Attending Unavailable NILL ., DR MAZA Consulting Unavailable BALL, DR ARMAS Primary Care Unavailable Tino, Rob Unavailable Orly Pedersen Unavailable Nasir NANCE Attending Unavailable Nasir NANCE Attending Unavailable CORNELIO, Nasir York Attending Unavailable Nasir NANCE Attending Unavailable Nasir NANCE Admitting Unavailable Allergies Allergy Classification Reported Allergen(s) Allergy Type Date of Onset Reaction(s) Facility Cephalosporins (antibiotic) (1 source) Cefaclor; Translations: [cefaclor] Drug Allergy Joint swelling (finding), Cutaneous eruption (morphologic abnormality) [facility] Macrolides (antibiotic) (1 source) Erythromycin; Translations: [erythromycin] Drug Allergy Joint swelling (finding), Cutaneous eruption (morphologic abnormality) [facility] NITROFURANTOIN, MACROCRYSTALS / Nitrofurantoin, Monohydrate (1 source) NITROFURANTOIN, MACROCRYSTALS / Nitrofurantoin, Monohydrate; Translations: [nitrofurantoin] Drug Allergy Eruption of skin (disorder) [facility] Penicillins (antibiotic) (1 source) Penicillin; Translations: [penicillin] Drug Allergy Cutaneous eruption (morphologic abnormality) [facility] Sulfonamides (antibiotic) (1 source) Sulfonamides (Antibiotic); Translations: [sulfa drugs] Drug Allergy Nausea and vomiting (disorder) [facility] (11 sources) Cefaclor; Translations: [cefaclor] Drug Allergy Joint swelling (finding), Cutaneous eruption (morphologic abnormality) [facility] (20 sources) Erythromycin; Translations: [erythromycin] Drug Allergy Joint swelling (finding), Cutaneous eruption (morphologic abnormality) [facility] (15 sources) Penicillin; Translations: [penicillin] Drug Allergy Cutaneous eruption (morphologic abnormality) [facility] (11 sources) Sulfonamides (Antibiotic); Translations: [sulfa drugs] Drug allergy Nausea and vomiting (disorder) [facility] (18 sources) NITROFURANTOIN, MACROCRYSTALS / Nitrofurantoin, Monohydrate; Translations: [nitrofurantoin] Drug Allergy Eruption of skin (disorder) [facility] (5 sources) Cefaclor Drug Allergy 10-17-19 15 Unknown [facility] (3 sources) Erythromycin Drug Allergy 10-17-19 15 Unknown Reaction [facility] (1 source) Nitrofurantoin Drug Allergy 04-03-20 22 [facility] (3 sources) Penicillins Drug allergy (disorder) 10-17-19 15 Unknown Reaction [facility] (1 source) Sulfonamides (Antibiotic) Drug allergy (disorder) [facility] (11 sources) Cephalexin Drug Allergy 10-12-19 Unknown, Unknown Reaction [facility] (9 sources) Substance with sulfonamide structure and antibacterial mechanism of action (substance) Drug allergy Unknown [facility] Other (6 sources) Substance with penicillin structure and antibacterial mechanism of action (substance) Drug allergy Unknown [facility] Other (6 sources) Ceclor *CEPHALOSPORINS* Propensity to adverse reactions 11-17-19 15 Unknown [facility] Other (1 source) patient allergy list reviewed by nurse or physicia Propensity to adverse reactions 06-30-19 Comment:Done [facility] Other (2 sources) Cephalosporins (Antibiotic) Allergy to substance 10-12-19 Unknown Reaction [facility] (2 sources) Nitrofurantoin Drug Allergy 10-12-19 Unknown Reaction [facility] (2 sources) Sulfonamides (Antibiotic) Allergy to substance 10-12-19 Unknown Reaction [facility] Medications Current Medications Medication Drug Class(es) Dates Sig (Normalized) Sig (Original) 0.4 ML cyclosporine 0.5 MG/ML Ophthalmic Suspension [Restasis] (5 sources) Start: 07-28-2022 Restasis 0.05% Emulsion Refill(s) [...] Active calcium carbonate 1500 mg oral tablet (6 sources) Start: 04-28-2022 take 1 mg by [...] BID, # 20 tab(s), Refills(s) 0, Pharmacy: [facility], 167, cm, 11/20/23 9:39:00 EDT, Height/Length Dosing, 60, kg, 11/20/23 9:39:00 EDT, Weight Dosing Start Date: 11/20/23 Status: Ordered Start: 07-28-2022 End: 08-07-2022 take 1 capsule by mouth twice daily doxycycline hyclate 100 mg Cap 100 mg = 1 cap(s), Oral, BID, X 10 day(s), # 20 cap(s), Refills(s) 0, Pharmacy: [facility], 167, cm, 07/28/22 15:34:00 EST, Height/Length [...] Status: Ordered estradiol 0.1 mg/ml vaginal cream (9 sources) Estrogen Start: 09-20-2021 Estrace 0.1 mg [...] estrogens, conjugated (jail) 0.625 mg/ml vaginal cream (7 sources) Estrogen Start: 10-09-2023 Conjugated Est rogens (Premarin) 0.625 mg/gram cream Active 0.625 MG VAGINAL 3 Times a week October 09, 2023 12:00am Premarin 0.625 M G/GM three times weekly Vaginal Active Premarin 0.625 M G/GM three times weekly Vaginal Active gabapentin 100 mg oral capsule (2 sources) Anti-epileptic Agent Start: 02-15-2024 gabapentin 100 mg Cap 100 mg = 1 cap(s), Refills(s) 0 Start Date: 02/15/24 Status: Ordered Hyoscyamine / Methenamine / Methylene blue / phenyl salicylate / Sodium Phosphate, Monobasic (3 sources) Oxidation-Reduction Agent Start: 01-10-2019 Urelle 1 tab(s), Oral, Refill(s) 0, prn Start Date: 01/10/19 Status: Ordered levothyroxine sodium 0.05 mg oral tablet (20 sources) l-Thyroxine Start: 10-09-2023 take 50 ug [...] Refills(s) 0 Start Date: 07/28/22 Status: Ordered lisinopril 2.5 mg oral tablet (2 sources) Angiotensin Converting Enzyme Inhibitor Start: 02-15-2024 lisinopril 2.5 mg Tab 2.5 mg = 1 tab(s), Refills(s) 0 Start Date: 02/15/24 Status: Ordered Vitamin D 1000 intl units (25 mcg) Tab (6 sources) Start: 04-28-2022 take 1 tablet by [...] Orally Once a day for 30 days 31 May, 2023 Active Problems Active Problems Problem Classification Problem [...] hypertension] Chronic Genitourinary symptoms and ill-defined conditions (7 sources) Stress incontinence (female) (male); Translations: [Genuine [...] D deficiency, unspecified] Chronic Other circulatory disease (17 sources) Elevated blood-pressure reading without diagnosis of hypertension; Translations: [Elevated blood-pressure reading, without diagnosis of hypertension] 02-21-2022 Episodic Other diseases of bladder and urethra (6 sources) Neurogenic dysfunction of the urinary bladder; Translations: [Neuromuscular dysfunction of bladder, unspecified] Onset: 09-18-2021 Chronic Other diseases of bladder and urethra (11 sources) Neurogenic bladder 09-18-2021 Chronic Other diseases [...] thyroiditis; Translations: [Other specified hypothyroidism] Chronic Unclassified (7 sources) Adhesion of pelvis 02-21-2022 Unclassified (7 sources) Body mass index 20-24 - normal 03-04-2022 Unclassified (7 sources) Patient encounter status 03-04-2022 Unclassified (1 source) CONTACT W/AND (SUSP) EXPOS COVID-19; Translations: [CONTACT W/AND (SUSP) EXPOS COVID-19] Onset: 04-08-2022 Urinary tract infections (17 sources) Chronic cystitis; Translations: [Other chronic cystitis [...] Test Name Value Interpretation Reference Range Facility C Urineon 02-17-2024 Bacteria identified Cx Nom (U) Microbiology PROCEDURE: Urine Culture [R1] SOURCE: U Random BODY SITE: COLLECTED DATE/TIME: 02/15/2024 15:27 EDT RECEIVED DATE/TIME: 02/15/2024 17:55 EDT START DATE/TIME: 02/15/2024 17:55 EDT FREE TEXT SOURCE: CORNELIO GATES, Nasir NANCE MD, Nasir York FINAL REPORTS Final Report [] Verified Date/Time: 02/17/2024 09:33 EDT >100,000 cfu/ml Escherichia coli SUSCEPTIBILITY RESULTS LEGEND: S=Susceptible, N/R=Not Reported, Blank=Data not available, or drug not advisable or tested, I=Intermediate, ESBL=Extended spectrum beta-lactamase, R=Resistant, TFG=Thymidine-dependent strain, CAROLYN=Beta-lactamase positive, JUAN JOSÉ=mcg/m;(mg/L), S*=Predicted susceptible interp, R*=Predicted resistant interp EC Antibiotic JUAN JOSÉ Dilutn JUAN JOSÉ Interp Ampicillin <=8 S Ampicillin/ <=8/4 S Sulbactam Aztreonam <=4 S Cefazolin <=2 S Cefepime <=2 S Ceftazidime <=1 S Ceftazidime/ <=8 S Avibactam Ceftriaxone <=1 S Cefuroxime 8 S Ciprofloxacin <=0.25 S Ertapenem <=0.5 S Gentamicin <=2 S Levofloxacin <=0.5 S Meropenem <=1 S Nitrofurantoin <=32 S Piperacillin/ <=8 S Tazobactam Tetracycline <=4 S Tobramycin <=2 S Trimethoprim/ <=2/38 S Sulfa Performing Locations R1: This test was performed at: [facility], [address] [place] [address], [id number] , [place], [facility] Comment on above: Performed By: #### [id number] #### [facility] [address] [place] [address] Urology Office/Clinic Noteon 02-15-2024 Urology Office/Clinic Note Urology Office/Clinic Note Chief Complaint 3 month in office UD HPI Staff 3 mos UD. Dx: postinfective urethral stricture of female, cystitis with hematuria, neurogenic bladder. *Estradiol cream. Treated with Doxycycline 100mg bid x 10 days at prior OV. CIC 3-4x/day Dysuria: states uncomfortable Incomplete bladder emptying: yes Hematuria: every now and then due to CIC Stream: weak most of the time Leaking: denies Post void dripping: denies Wearing pads/ Depends: denies Urge incontinence: denies Stress incontinence: with a hard sneeze Incontinence without Sensory Awareness: denies Abdominal pain: denies Flank pain: occasionally discomfort on both sides but more on the left Sexual complaints: denies History of Present Illness Tests reviewed: reviewed [...] See HPI. Physical Exam Vitals & Measurements T: 37 ?C(Temporal Artery) HR: 82(Peripheral) RR: 16 BP: 135/75 HT: 66 in HT: 167 cm WT: 61.2 kg WT: 134.64 lb BMI: 21.94 General Appearance: alert , no acute distress, [...] is: Tight The Urethra was dilated to: 22-30 Guatemalan with sounds. Specimens Removed: None Postoperative Information Patient is discharged home. Follow up arranged. Assessment/Plan 1. 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 Wishes to proceed with UD which was done without complications. Dilated to 30Fr, tolerated well. -F/u in 3 mos for UD 2. Cystitis with hematuria (N30.91: Cystitis, unspecified with hematuria) Tx'd w/ doxycycline 100mg bid x10 days at prior OV. Using Estradiol cream 2x/wk. UA today trace-intact blood, trace leuks, and positive nitrites. Feels infection is just starting but still wishes to proceed with UD today. -Urine sample to be sent for culture. Will start Levaquin 500mg qd x10 days (given extensive allergy list). -Submit UA in 2 wks 3. Neurogenic bladder (N31.9: Neuromuscular dysfunction of bladder, unspecified) CIC 3-4x per day. Voids on own one-third of the time. Pt to continue regimen. Follow-up With When Contact Information CORNELIO GATES, Nasir York, URL [facility] [address], [place] [address]- [phone] Additional Instructions: 3 mos for IO UD Patient Education Urinary Tract Infection, Adult Urethral Dilation I, Ondina Wang, personally scribed for Dr. Nance on 02/15/2024 15:49:56. . Problem List/Past Medical History Ongoing Anxiety Blood [...] 1 gm, Vaginal, As Directed, 1 refills gabapentin 100 mg (more content not included)... Normal [facility] Comment on above: Result Comment: Electronically Signed By : Nasir NANCE MD\.br\Date and Time Signed: 02/15/24 15:55 EDT\.br\Electronically Co-Signed By: Ondina Wang\Date and Time Co-Signed: 02/15/24 15:50 EDT Ambulatory Visit Summaryon 0 11-20-2023 Ambulatory Visit Summary Ambulatory Visit Summary MIKE RIVERA :1955 Visit Date:11/20/2023 Ambulatory Visit Instructions [...] Nasir NANCE MD Where: [facility] Urology Office/Clinic Noteon 11-20-2023 Urology Office/Clinic [...] Tight The Urethra was dilated to: 20-30 Guatemalan with sounds. Specimens Removed: None Postoperative Information [...] Information CORNELIO GATES, Nasir York, URL [address] [place] [address]- Additional Instructions: 3 mos w/ IO UD [...] Daily Allergies Macrobid (Rash) cefaclor (Joint swelling, Mahdu (more content not included)... Normal [facility] Comment on above: Result Comment: Electronically Signed By : Nasir NANCE MD\.br\Date and Time Signed: 11/20/23 10:19 EDT\.br\Electronically Co-Signed By: Shannan Ca.br\Date and Time Co-Signed: 11/20/23 10:16 EDT T3, TOTAL (TRIIODOTHYRONINE) on 05-23-2022 T3, TOTAL 85 ng/dL Normal 71-180 [facility] Comment on above: Performed By: #### [id number] #### [facility] [address] [place] [address] Dr. Ivana Gotti FREE T4on 05-22-2022 Free T4 [Mass/Vol] 0.69 ng/dL Critically low 0.76-1.46 [facility] Comment on above: Performed By: #### FT4 #### [facility] [address] [address] [address] Ivana Gotti TSHon 05-22-2022 TSH 4.342 uIU/mL Critically high 0.358-3.740 [facility] Comment on above: Performed By: #### TSH #### [facility] [address] [place] [address] Dr. Ivana Gotti Covid-19 PCR (CVDTB)on 03-25 SARS-CoV-2 (COVID-19) RNA ALICIA+probe Ql (Unsp spec) Not detected Normal NOT DETECTED [facility] Comment on above: Result Comment: This test is not yet dolly roved or cleared by the [place] FDA. When there are no FDA-approved or cleared tests available, and other criteria are met, FDA can make tests available under an emergency access mechanism called an Emergency Use Authorization (EUA). The EUA for this test is supported by the Siler of Health and Human Service's (HHS's) declaration [...] consistent with SARS-CoV-2. Performed By: #### C VDTBH #### [facility] [address] [place] [address] Dr. Ivana Gotti CBC AUTO DIFFon 02-28-2022 BASO # 0.1 103/ul Normal 0.0-0.1 [facility] Comment on above: Performed By: #### CBC #### [facility] [address] [place] [address] Dr. Ivana Gotti Basophils/100 WBC (Bld) 0.7 % Normal 0.2-2.0 [facility] Comment on above: Performed By: #### CBC #### [facility] [address] [place] [address] Dr. Ivana Gotti EO # 0.3 103/ul Normal 0.0-0.7 [facility] Comment on above: Performed By: #### CBC #### [facility] [address] [place] [address] Dr. Ivana Gotti Eosinophils/100 WBC (Bld) 3.8 % Normal 0.9-7.0 [facility] Comment on above: Performed By: #### CBC #### [facility] [address] [place] [address] Dr. Ivana Gotti Erythrocyte distribution width (RBC) [Ratio] 13.3 % Normal 11.0-15.0 [facility] Comment on above: Performed By: #### CBC #### [facility] [address] [place] [address] Dr. Ivana Gotti Hematocrit (Bld) [Volume fraction] 45.1 % Normal 36.0-48.0 [facility] Comment on above: Performed By: #### CBC #### [facility] [address] [place] [address] Dr. Ivana Gotti Hemoglobin (Bld) [Mass/Vol] 14.9 g/dL Normal 12.0-16.0 [facility] Comment on above: Performed By: #### CBC #### [facility] [address] [place] [address] Dr. Ivana Gotti IG # 0.02 10e3/ul Normal 0.00-0.03 [facility] Comment on above: Performed By: #### CBC #### [facility] [address] [place] [address] Dr. Ivana Gotti IG % 0.3 % Normal 0.0-0.5 [facility] Comment on above: Performed By: #### CBC #### [facility] [address] [place] [address] Dr. Ivana Gotti LYMPH # 1.9 103/ul Normal 1.2-3.8 [facility] Comment on above: Performed By: #### CBC #### [facility] [address] [place] [address] Dr. Ivana Gotti Lymphocytes/100 WBC (Bld) 25.4 % Normal 20.5-60.0 [facility] Comment on above: Performed By: #### CBC #### [facility] [address] [place] [address] Dr. Ivana Gotti MANUAL DIFF REQ NO Normal [facility] Comment on above: Performed By: #### CBC #### [facility] [address] [place] [address] Dr. Ivana Gotti MCH (RBC) [Entitic mass] 31.2 pg Normal 26.7-34.0 [facility] Comment on above: Performed By: #### CBC #### [facility] [address] [place] [address] Dr. Ivana Gotti MCHC (RBC) [Mass/Vol] 33.0 g/dL Normal 29.9-35.2 [facility] Comment on above: Performed By: #### CBC #### [facility] [address] [place] [address] Dr. Ivana Gotti MCV (RBC) [Entitic vol] 94.5 fL Normal 81.0-99.0 [facility] Comment on above: Performed By: #### CBC #### [facility] [address] [place] [address] Dr. Ivana Gotti MONO # 0.5 103/ul Normal 0.3-0.8 [facility] Comment on above: Performed By: #### CBC #### [facility] [address] [place] [address] Dr. Ivana Gotti Monocytes/100 WBC (Bld) 6.9 % Normal 1.7-12.0 [facility] Comment on above: Performed By: #### CBC #### [facility] [address] [place] [address] Dr. Ivana Gotti NEUT # 4.7 103/ul Normal 1.4-6.5 [facility] Comment on above: Performed By: #### CBC #### [facility] [address] [place] [address] Dr. Ivana Gotti Neutrophils/100 WBC (Bld) 62.9 % Normal 43.0-75.0 [facility] Comment on above: Performed By: #### CBC #### [facility] [address] [place] [address] Dr. Ivana Gotti Platelet mean volume (Bld) [Entitic vol] 10.2 fL Normal 9.5-13.5 [facility] Comment on above: Performed By: #### CBC #### [facility] [address] [place] [address] Dr. Ivana Gotti PLT 262 103/ul Normal 150-450 [facility] Comment on above: Performed By: #### CBC #### [facility] [address] [place] [address] Dr. Ivana Gotti RBC 4.77 106/ul Normal 4.20-5.40 [facility] Comment on above: Performed By: #### CBC #### [facility] [address] [place] [address] Dr. Ivana Gotti WBC 7.4 103/ul Normal 4.0-11.0 [facility] Comment on above: Performed By: #### CBC #### [facility] [address] [address] [address] Ivana Gotti LIPID PROFILEon 02-28-2022 CHOL-HDL RATIO NORM SEE BELOW Normal [facility] Comment on above: Result Comment: 3.3 - 4.4 LOW RISK 4.4 - 7.1 AVERAGE RISK 7.1 - 11.0 MODERATE RISK >11.0 HIGH RISK Performed By: #### L IPID, BMP, TSH #### [facility] [address] [address] [address] Ivana Gotti Cholesterol [Mass/Vol] 240 mg/dL Critically high <=200 [facility] Comment on above: Performed By: #### LIPID, BMP, TSH #### [facility] [address] [address] [address] Ivana Gotti Cholesterol in HDL [Mass/Vol] 123 mg/dL Critically high 40-60 [facility] Comment on above: Performed By: #### LIPID, BMP, TSH #### [facility] [address] [address] [address] Ivana Gotti Cholesterol in LDL [Mass/Vol] 107.8 mg/dL Normal [facility] Comment on above: Performed By: #### LIPID, BMP, TSH #### [facility] [address] [address] [address] Ivana Gotti Cholesterol.tota l/Cholesterol in HDL [Mass ratio] 2.0 {ratio} Normal [facility] Comment on above: Performed By: #### LIPID, BMP, TSH #### [facility] [address] [address] [address] Ivana Gotti HDL NORMAL > or = 60 mg/dl - LO W CARDIOVASCULAR RISK <40 mg/dl - HIGH CARDIOVASCULAR RISK Normal [facility] Comment on above: Performed By: #### LIPID, BMP, TSH #### [facility] [address] [address] [address] Ivana Gotti LDL CALC NORMAL SEE BELOW Normal [facility] Comment on above: Result Comment: <100 mg/dl OPTIMAL 100 - 129 mg/dl NEAR OR ABOVE OPTIMAL 130 - 159 mg/dl BORDERLINE HIGH 160 - 189 mg/dl HIGH >190 mg/dl VERY HIGH Performed By: #### L IPID, BMP, TSH #### [facility] [address] [address] [address] Ivana Gotti Triglyceride [Mass/Vol] 46 mg/dL Normal <=150 [facility] Comment on above: Performed By: #### LIPID, BMP, TSH #### [facility] [address] [address] [address] Ivana Gotti VLDL CALC 9.2 mg/dL Normal [facility] Comment on above: Performed By: #### LIPID, BMP, TSH #### [facility] [address] [address] [address] Ivana Gotti MG MAMM SCREEN 3D PADMINI CADon 02-28-2022 MG MAMM SCREEN 3D PADMINI CAD Patient: MIKE RIVERA Exam Date: 02/28/2022 : 1955 Gender:F Ordering : DR ROB JIMÉNEZ D.O. Admission #: [id number] Family : Order #: [id number] CLICK HERE TO VIEW EXAM RADIOLOGY REPORT [...] lung cancer at age 72. LOCATION: [facility] BREAST COMPOSITION: Heterogeneously dense,which may obscure small [...] MD on 02/28/2022 at 08:40 Normal [facility] PROF CHEM 8 (BAS METB)on Anion gap [Moles/Vol] 10.3 mmol/L Normal [facility] Comment on above: Performed By: #### LIPID, BMP, TSH #### [facility] [address] [place] [address] Dr. Ivana Gotti Calcium [Mass/Vol] 9.5 mg/dL Normal 8.5-10.1 [facility] Comment on above: Performed By: #### LIPID, BMP, TSH #### [facility] [address] [place] [address] Dr. Ivana Gotti Chloride [Moles/Vol] 104 mmol/L Normal 98-107 [facility] Comment on above: Performed By: #### LIPID, BMP, TSH #### [facility] [address] [place] [address] Dr. Ivana Gotti CO2 [Moles/Vol] 26.8 mmol/L Normal 21.0-32.0 [facility] Comment on above: Performed By: #### LIPID, BMP, TSH #### [facility] [address] [place] [address] Dr. Ivana Gotti Creatinine [Mass/Vol] 0.85 mg/dL Normal 0.55-1.02 [facility] Comment on above: Performed By: #### LIPID, BMP, TSH #### [facility] [facility] [address] [place] [address] Dr. Ivana Gotti EGFR-AF MALAYSIAN >60 Normal >=60 [facility] Comment on above: Performed By: #### LIPID, BMP, TSH #### [facility] [address] [place] [address] Dr. Ivana Gotti EGFR-NON AF MALAYSIAN >60 Normal >=60 [facility] Comment on above: Performed By: #### LIPID, BMP, TSH #### [facility] [address] [place], [place] [id number] Dr. Ivana Gotti Glucose [Mass/Vol] 117 mg/dL Critically high 74-106 [facility] Comment on above: Performed By: #### LIPID, BMP, TSH #### [facility] [address] [address] [address] Ivana Gotti Potassium [Moles/Vol] 4.1 mmol/L Normal 3.5-5.1 [facility] Comment on above: Performed By: #### LIPID, BMP, TSH #### [facility] [address] [address] [address] Ivana Gotti Sodium [Moles/Vol] 137 mmol/L Normal 136-145 [facility] Comment on above: Performed By: #### LIPID, BMP, TSH #### [facility] [address] [address] [address] Ivana Gotti Urea nitrogen [Mass/Vol] 19.0 mg/dL Critically high 7.0-18.0 [facility] Comment on above: Performed By: #### LIPID, BMP, TSH #### [facility] [address] [address] [address] Ivana Gotti Urea nitrogen/Creatin ine [Mass ratio] 22.4 mg/mg Normal [facility] Comment on above: Performed By: #### LIPID, BMP, TSH #### [facility] [address] [address] [address] Ivana Gotti TSHon 02-28-2022 TSH 4.341 uIU/mL Critically high 0.358-3.740 [facility] Comment on above: Performed By: #### LIPID, BMP, TSH ####[facility] [id number] [address]Dr. Ivana Gotti VITAMIN D 25 OHon 02-28-2022 VIT D 25-OH 16.8 ng/mL Normal [facility] Comment on above: Performed By: #### VITAD #### [facility] [address] [address] [address] Ivana Gotti VIT D RANGES SEE BELOW Normal [facility] Comment on above: Result Comment: <20 ng/mL Vit D deficien t 20 - <30 ng/mL Vit D insufficient 30 - 100 ng/mL Vit D sufficient >100 ng/mL Potential Toxicity Performed By: #### V ITAD #### [facility] [address] [place] [address] Dr. Ivana Gotti Vital Signs Date Time Vital Sign Value Performing Clinician Facility 02-15-2024 15:14-0400 Blood Pressure Location Nasir NANCE [facility] 02-15-2024 15:14-0400 Body temperature 98.6 [degF] Nasir NANCE [facility] 02-15-2024 15:14-0400 Diastolic blood pressure 75 mm[Hg] Nasir NANCE [facility] 02-15-2024 15:14-0400 Heart rate 82 /min Nasir NANCE [facility] 02-15-2024 15:14-0400 Respiratory rate 16 /min aNsir NANCE [facility] 02-15-2024 15:14-0400 Systolic blood pressure 135 mm[Hg] Nasir NANCE [facility] 01-27-2024 14:45-0400 Body height 167.64 cm [facility] 01-27-2024 14:45-0400 Body mass index (BMI) [Ratio] 24 kg/m2 [facility] 01-27-2024 14:45-0400 Body weight 67.58 kg [facility] 01-27-2024 14:45-0400 Diastolic blood pressure 93 mm[Hg] [facility] 01-27-2024 14:45-0400 Heart rate 111 /min [facility] 01-27-2024 14:45-0400 Respiratory rate 12 /min [facility] 01-27-2024 14:45-0400 Systolic blood pressure 162 mm[Hg] [facility] 11-20-2023 09:36-0400 Blood Pressure Location Nasir NANCE [facility] 11-20-2023 09:36-0400 Diastolic blood pressure 76 mm[Hg] Nasir NANCE [facility] 11-20-2023 09:36-0400 Heart rate 94 /min Nasir NANCE [facility] 11-20-2023 09:36-0400 Respiratory rate 16 /min Nasir NANCE [facility] 11-20-2023 09:36-0400 Systolic blood pressure 134 mm[Hg] Nasir NANCE [facility] 10-12-2023 15:44-0400 Body height 167.64 cm [facility] 10-12-2023 15:44-0400 Body mass index (BMI) [Ratio] 23.3 kg/m2 [facility] 10-12-2023 15:44-0400 Body weight 65.54 kg [facility] 10-12-2023 15:44-0400 Diastolic blood pressure 75 mm[Hg] [facility] 10-12-2023 15:44-0400 Heart rate 93 /min [facility] 10-12-2023 15:44-0400 Respiratory rate 12 /min [facility] 10-12-2023 15:44-0400 Systolic blood pressure 115 mm[Hg] [facility] 04-30-2023 19:53-0500 Body height 167.64 cm Orly Pedersen Other [facility] Other 04-13-2023 15:00-0500 Body height 167.64 cm Rob Jiménez Other [facility] Other 04-13-2023 15:00-0500 Body mass index (BMI) [Ratio] 22.88 kg/m2 Rob Ball Other [facility] Other 04-13-2023 15:00-0500 Body weight 64.32 kg Rob Ball Other [facility] Other 04-13-2023 15:00-0500 Diastolic blood pressure 87 mm[Hg] Rob Ball Other [facility] Other 04-13-2023 15:00-0500 Respiratory rate 12 /min Rob Ball Other [facility] Other 04-13-2023 15:00-0500 Systolic blood pressure 153 mm[Hg] Rob Ball Other [facility] Other 10-22-2022 15:30-0400 Body height 167.64 cm Rob Ball Other [facility] Other 10-22-2022 15:30-0400 Body mass index (BMI) [Ratio] 22.34 kg/m2 Rob Ball Other [facility] Other 10-22-2022 15:30-0400 Body weight 62.78 kg Rob Ball Other [facility] Other 10-22-2022 15:30-0400 Diastolic blood pressure 92 mm[Hg] Rob Ball Other [facility] Other 10-22-2022 15:30-0400 Respiratory rate 12 /min Rob Ball Other [facility] Other 10-22-2022 15:30-0400 Systolic blood pressure 168 mm[Hg] Rob Ball Other [facility] Other 08-11-2022 11:57-0400 Blood Pressure Location Nasir NANCE [facility] 08-11-2022 11:57-0400 Diastolic blood pressure 89 mm[Hg] Nasir NANCE [facility] 08-11-2022 11:57-0400 Heart rate 82 /min Nasir NANCE [facility] 08-11-2022 11:57-0400 Respiratory rate 16 /min Nasir NANCE [facility] 08-11-2022 11:57-0400 Systolic blood pressure 132 mm[Hg] Nasir NANCE [facility] 04-28-2022 16:11-0500 Blood Pressure Location Nasir NANCE [facility] 04-28-2022 16:11-0500 Diastolic blood pressure 82 mm[Hg] Nasir NANCE [facility] 04-28-2022 16:11-0500 Heart rate 70 /min Naisr NANCE [facility] 04-28-2022 16:11-0500 Respiratory rate 16 /min Nasir NANCE [facility] 04-28-2022 16:11-0500 Systolic blood pressure 127 mm[Hg] Nasir NANCE [facility] 03-04-2022 15:23-0400 Blood Pressure Location Link [facility] [place] 03-04-2022 15:23-0400 Diastolic blood pressure 84 mm[Hg] Link [facility] [place] 03-04-2022 15:23-0400 Heart rate 72 /min [facility] [place] 03-04-2022 15:23-0400 Respiratory rate 16 /min [facility] [place] 03-04-2022 15:23-0400 Systolic blood pressure 136 mm[Hg] [facility] [place] 02-03-2022 16:22-0400 Blood Pressure Location Nasir NANCE [facility] 02-03-2022 16:22-0400 Diastolic blood pressure 88 mm[Hg] Nasir NANCE [facility] 02-03-2022 16:22-0400 Heart rate 74 /min Nasir NANCE [facility] 02-03-2022 16:22-0400 Respiratory rate 16 /min Nasir NANCE [facility] 02-03-2022 16:22-0400 Systolic blood pressure 137 mm[Hg] Nasir NANCE [facility] 10-14-2021 15:54-0400 Blood Pressure Location Nasir NANCE [facility] 10-14-2021 15:54-0400 Diastolic blood pressure 87 mm[Hg] Nasir NANCE [facility] 10-14-2021 15:54-0400 Heart rate 80 /min Nasir NANCE [facility] [place] 10-14-2021 15:54-0400 Respiratory rate 16 /min Nasir NANCE [facility] [place] 10-14-2021 15:54-0400 Systolic blood pressure 137 mm[Hg] [facility] 09-18-2021 13:19-0400 Blood Pressure Location Nasir NANCE [facility] [place] 09-18-2021 13:19-0400 Diastolic blood pressure 85 mm[Hg] Nasir NANCE [facility] [place] 09-18-2021 13:19-0400 Heart rate 84 /min Nasir NANCE [facility] [place] 09-18-2021 13:19-0400 Systolic blood pressure 152 mm[Hg] Nasir NANCE [facility] [place] Encounters Encounter Date Encounter Type Care Provider Facility Start: 05-16-2024 ambulatory Nasir NANCE Facili ty:[facility] Start: 02-15-2024 End: 02-15-2024 Lab Drop off Nasir NANCE [facility] Start: 02-15-2024 End: 02-15-2024 ambulatory Nasir NANCE [facility] Start: 02-15-2024 End: 02-15-2024 Patient encounter procedure Nasir NANCE [facility] Start: 01-27-2024 End: 01-27-2024 ambulatory [facility] Work Phone: Start: 01-27-2024 End: 01-27-2024 Patient encounter procedure [facility] Physician [facility] Work Phone: Start: 11-20-2023 End: 11-20-2023 ambulatory Nasir Jaylen CORNELIO Facility:[facility] Start: 11-20-2023 End: 11-20-2023 Patient encounter procedure Nasir NANCE [facility] Start: 10-12-2023 End: 10-12-2023 ambulatory [facility] Work Phone: Start: 10-12-2023 End: 10-12-2023 Patient encounter procedure [facility] Physician [facility] Work Phone: Start: 07-30-2023 Non-patient / Non-visit [facility] Physician [facility] [employer] Work Phone: Start: 06-14-2023 End: 06-14-2023 ambulatory Orly Pedersen Other [facility] Other Start: 06-14-2023 Telephone encounter Orly Pedersen [facility] Start: 05-04-2023 End: 05-04-2023 ambulatory Rob Jiménez Other [facility] Other Start: 05-04-2023 Telephone encounter Rob Jiménez [facility] Start: 04-30-2023 End: 04-30-2023 ambulatory Orly Pedersen Other [facility] Other Start: 04-30-2023 Telephone encounter Orly Pedersen [facility] Start: 04-13-2023 End: 04-13-2023 ambulatory Rob Jiménez Other [facility] Other Start: 04-13-2023 Encounter for genera l adult medical examination without abnormal findings Rob Jiménez [facility] Start: 04-13-2023 Periodic preventive med est patient 65yrs& older Rob Jiménez [facility] Start: 03-27-2023 End: 03-27-2023 ambulatory Rob Jiménez Other [facility] Other Start: 03-27-2023 Office outpatient vi sit 15 minutes Rob Jiménez [facility] Start: 11-09-2022 End: 11-09-2022 ambulatory Orly Pedersen Other [facility] Other Start: 11-09-2022 Encounter by ata Pedersen [facility] Start: 10-23-2022 End: 10-23-2022 ambulatory Orly Pedersen Other [facility] Other Start: 10-23-2022 Telephone encounter Orly Pedersen [facility] Start: 10-22-2022 End: 10-22-2022 ambulatory Rob Jiménez Other [facility] Other Start: 10-22-2022 Office outpatient vi sit 25 minutes Rob Jiménez [facility] Start: 09-28-2022 End: 09-28-2022 ambulatory KENDALL LANDIS . Facility:[facility] Start: 08-11-2022 End: 08-11-2022 Patient encounter procedure Nasir NANCE [facility] Start: 07-28-2022 End: 07-28-2022 Patient encounter procedure Nasir NANCE [facility] Start: 05-22-2022 End: 05-23-[address] ROB JIMÉNEZ Facility:[facility] Start: 04-28-2022 End: 04-28-2022 Patient encounter procedure Nasir NANCE [facility] Start: 04-09-2022 End: 04-09-[address] LINK CALHOUN . Facility:[facility] Start: 04-08-2022 Encounter for preprocedural laboratory examination DR LINK CALHOUN . [facility] Start: 04-05-2022 End: 04-06-[address] LINK CALHOUN . Facility:[facility] Start: 04-05-2022 End: 04-06-2022 Encounter for preprocedural laboratory examination DR LINK CALHOUN . Facility:[facility] Start: 03-04-2022 End: 03-04-2022 Patient encounter procedure Link CALHOUN [facility] [place] Start: 03-03-2022 Encounter for genera l adult medical examination without abnormal findings DR ROB JIMÉNEZ [facility] Start: 02-28-2022 End: 03-01-[address] ROB JIMÉNEZ Facility:[facility] Start: 02-28-2022 End: 03-01-2022 Encounter for general adult medical examination without abnormal findings DR ROB JIMÉNEZ Facility:[facility] Start: 02-12-2022 Adult health examination Kong Jiménez Other [facility] Other Start: 02-12-2022 Gynecological examination vee Jiménez Other [facility] Other Start: 02-03-2022 End: 02-03-2022 Patient encounter procedure Nasir NANCE [facility] Start: 10-14-2021 End: 10-14-2021 Patient encounter procedure Nasir NANCE [facility] Start: 09-18-2021 End: 09-18-2021 Lab Drop off Nasir NANCE [facility] Start: 09-18-2021 End: 09-18-2021 Patient encounter procedure Nasir NANCE [facility] [place] Procedures Date Procedure Procedure Detail Performing Clinician Start: 11-20-2023 Dilation of urethra Nasir NANCE Start: 08-11-2022 Dilation of urethra Nasir NANCE Start: 02-03-2022 Dilation of urethra Nasir NANCE Start: 01-10-2019 Dilation of urethra Nasir NANCE Start: 05-25-2005 Colonoscopy [facility] Start: 05-25-2005 Esophagogastroduodenoscopy [facility] Start: 08-21-2003 Urodynamics Nasir NANCE Appendectomy Nasir NANCE Bilateral salpingect dawson with oophorectomy [facility] section Nasircyndi GONZALEZ DUANE Comment on above: x2 section [facility] [place] Cholecystectomy Nasir ODOM Colonoscopy abnormal (finding) Nasir NANCE Cystoscopy [facility] Depression screening Benjami n Tino Other dilation of uretheral stricture 2 Nasir [...] from face Total abdominal hysterectomy Link [facility] Plan of Treatment Date Care Activity Detail Author XR Cervical spine Vi ews W flexion and W extension [facility] enter Immunizations Immunization Date Immunization Notes Care Provider Sapphire bravo 05-13-2021 SARS-CoV-2 (COVID-19 ) Ad26 vaccine, recombinant Nasircyndi NANCE [facility] Comment on above: Result Comment: 2022: [id number] 04-24-2021 SARS-CoV-2 (COVID-19 ) Ad26 vaccine, recombinant Nasir NANCE [facility] 10-19-2020 SARS-CoV-2 (COVID-19 ) Ad26 vaccine, recombinant Nasir NANCE [facility] Comment on above: Result Comment: 2022: [id number] 09-22-2020 SARS-CoV-2 (COVID-19 ) Ad26 vaccine, recombinant Nasir NANCE [facility] [place] 09-01-2020 SARS-CoV-2 (COVID-19 ) [id number] Nasir NANCE [facility] 05-01-2020 SARS-CoV-2 (COVID-19 ) mRNA BNT-162b2 vax Nasir NANCE [facility] 04-03-2020 SARS-CoV-2 (COVID-19 ) mRNA-[id number] vaccine Nasir NANCE [facility] Payers Date Payer Category Payer Unknown [id number] 1955 Unknown [id number] 2.16.84 [id number] 1955 Unknown [id number] 2.16.84 [id number] 1955 Unknown [id number] 2.16.84 [id number] 1955 Unknown [id number] 2.16.84 [id number] 1955 Unknown [id number] 2.16.84 [id number] 1955 Unknown [id number] 2.16.8 [id number] 1955 Unknown [id number] 2.16.8 [id number] 1955 Unknown [id number] 2.16.8 [id number] 1955 Unknown [id number] 2.16.8 [id number] Social History Date Type Detail Facility Start: 09-18-2021 End: 02-15-2024 Tobacco smoking status Heavy tobacco smoker (finding) [facility] [place] [employer] Tobacco smoking status Smoker (finding[facility] [employer] Sex Assigned At Female [facility] [employer] Tobacco smoking status Never [facility] [place] Start: 1955 Sex Assigned At Female [facility] Functional Status Date Assessment Result Facility 02-15-2024 Functional Status N/A [facility] 11-20-2023 Functional Status N/A [facility] 08-11-2022 Functional Status N/A [facility] 07-28-2022 Functional Status N/A [facility] 04-28-2022 Functional Status N/A [facility] 03-04-2022 Functional Status N/A [facility] Functional Status N/A [facility] Clinical Notes 09-18-2021 to 02-15-2024 Note Date & Type Note Facility 02-15-2024 Hospital Discharg e instructions Patient Education 02/15/2024 15:45:25 Urinary Tract Infection, Adult Urinary Tract Infection, Adult A urinary tract infection (UTI) is an infection of any part of the urinary tract. The urinary tract includes the kidneys, ureters, bladder, and urethra. These organs make, store, and get rid of urine in the body. An upper UTI affects the ureters and kidneys. A lower UTI affects the bladder and urethra. What are the causes? Most urinary tract infections are caused by bacteria in your genital area around your urethra, where urine leaves your body. These bacteria grow and cause inflammation of your urinary tract. What increases the risk? You are more likely to develop this condition if: You have a urinary catheter that stays in place. You are not able to control when you urinate or have a bowel movement (incontinence). You are female and you: ?Use a spermicide or diaphragm for control. ?Have low estrogen levels. ?Are . You have certain genes that increase your risk. You are sexually active. You take antibiotic medicines. You have a condition that causes your flow of urine to slow down, such as: ?An enlarged prostate, if you are male. ?Blockage in your urethra. ?A kidney stone. ?A nerve condition that affects your bladder control (neurogenic bladder). ?Not getting enough to drink, or not urinating often. You have certain medical conditions, such as: ?Diabetes. ?A weak disease-fighting system (immunesystem). ?Sickle cell disease. ?Gout. ?Spinal cord injury. What are the signs or symptoms? Symptoms of this condition include: Needing to urinate right away (urgency). Frequent urination. This may include small amounts of urine each time you urinate. Pain or burning with urination. Blood in the urine. Urine that smells bad or unusual. Trouble urinating. Cloudy urine. Vaginal discharge, if you are female. Pain in the abdomen or the lower back. You may also have: Vomiting or a decreased appetite. Confusion. Irritability or tiredness. A fever or chills. Diarrhea. The first symptom in older adults may be confusion. In some cases, they may not have any symptoms until the infection has worsened. How is this diagnosed? This condition is diagnosed based on your medical history and a physical exam. You may also have other tests, including: Urine tests. Blood tests. Tests for STIs (sexually transmitted infections). If you have had more than one UTI, a cystoscopy or imaging studies may be done to determine the cause of the infections. How is this treated? Treatment for this condition includes: Antibiotic medicine. Rpfc-cik-dvxefgl medicines to treat discomfort. Drinking enough water to stay hydrated. If you have frequent infections or have other conditions such as a kidney stone, you may need to see a health care provider who specializes in the urinary tract (urologist). In rare cases, urinary tract infections can cause sepsis. Sepsis is a life-threatening condition that occurs when the body responds to an infection. Sepsis is treated in the hospital with IV antibiotics, fluids, and other medicines. Follow these instructions at home: Medicines Take zpdr-tup-wjkzmhy and prescription medicines only as told by your health care provider. If you were prescribed an antibiotic medicine, take it as told by your health care provider. Do not stop using the antibiotic even if you start to feel better. General instructions Make sure you: ?Empty your bladder often and completely. Do not hold urine for long periods of time. ?Empty your bladder after sex. ?Wipe from front to back after urinating or having a bowel movement if you are female. Use each tissue only one time when you wipe. Drink enough fluid to keep your urine pale yellow. Keep all follow-up visits. This is important. Contact a health care provider if: Your symptoms do not get better after 1 2 days. Your symptoms go away and then return. Get help right away if: You have severe pain in your back or your lower abdomen. You have a fever or chills. You have nausea or vomiting. Summary A urinary tract infection (UTI) is an infection of any part of the urinary tract, which includes the kidneys, ureters, bladder, and urethra. Most urinary tract infections are caused by bacteria in your genital area. Treatment for this condition often includes antibiotic medicines. If you were prescribed an antibiotic medicine, take it as told by your health care provider. Do not stop using the antibiotic even if you start to feel better. Keep all follow-up visits. This is important. This information is not intended to replace advice given to you by your health care provider. Make sure you discuss any questions you have with your health care provider. Document Revised: 12/16/2020 Document Reviewed: 12/21/2020 [employer] Patient Education 2023 [employer]. 02/15/2024 15:41:29 Urethral Dilation Urethral Dilation Urethral dilation is a procedure to stretch open (dilate) the urethra. The urethra is the tube that drains pee (urine) from the bladder out of the body. In females, the urethra opens above the vaginal opening. In males, the urethra opens at the tip of the penis. Urethral dilation is usually done to treat narrowing of the urethra (urethral stricture), which can make it difficult to pee (urinate). Urethral strictures can be caused by scar tissue, infection, injury, or surgery. Urethral dilation widens the urethra so that you can pee normally. Urethral dilation is done through the opening of the urethra. There are no incisions made during the procedure. Tell a health care provider about: Any allergies you have. All medicines you are taking, including vitamins, herbs, eye drops, creams, and rlvh-rnw-owqghuj medicines. Any problems you or family members have had with anesthesia. Any bleeding problems you have. Any surgeries you have had. Any medical conditions you have. Whether you are or may be . What are the risks? Your health care provider will talk with you about risks. These may include: Bleeding. Infection. A return of urethral stricture, which requires repeating the dilation procedure or more surgery. Damage to the urethra, which may require reconstructive surgery. Allergic reactions to medicines. What happens before the procedure? Medicines Ask your provider about: Changing or stopping your regular medicines. These include any diabetes medicines or blood thinners you take. Taking medicines such as aspirin and ibuprofen. These medicines can thin your blood. Do not take them unless your provider tells you to. Taking jnkn-sai-boyhsnu medicines, vitamins, herbs, and supplements. General instructions Follow instructions from your provider about what you may eat and drink. If you will be going home right after the procedure, plan to have a responsible adult: ?Take you home from the hospital or clinic. You will not be allowed to drive. ?Care for you for the time you are told. Ask your provider: ?How your surgery site will be marked. ?What steps will be taken to help prevent infection. These steps may include: ?Removing hair at the surgery site. ?Washing skin with a soap that kills germs. ?Taking antibiotics. What happens during the procedure? An IV may be inserted into one of your veins. You may be given: ?A local anesthetic to numb your urethral opening. This will be applied as a gel that will also lubricate the opening of the urethra. ?A sedative. This helps you relax. ?Anesthesia. This keeps you from feeling pain. It will make you fall asleep for surgery. A thin tube with a light and [...] inflated to help stretch your urethra open. The balloon may be coated with a medicine to help the urethra stay open longer. Your urethra will be irrigated. A catheter will be inserted into your bladder at the end of the procedure. The procedure may vary among providers and hospitals. What happens after the procedure? After the procedure, it is common to have: ?Burning pain when peeing. ?Blood in your pee. ?A need to pee frequently. You will be asked to pee before you leave the hospital or clinic. Your pee flow should improve within a few days. You may have a catheter in your bladder for 2 3 days following your procedure. Follow these instructions at home: Medicines Take jsvk-czl-unwihqd and prescription medicines only as told by your provider. If you were prescribed antibiotics, take them as told by your provider. Do not stop using the antibiotic even if you start to feel better. Ask your provider if the medicine prescribed to you: ?Requires you to avoid driving or using machinery. ?Can cause constipation. You may need to take these actions to prevent or treat constipation: ?Take vvdf-rft-xpuedog or prescription medicines. ?Eat foods that are high in fiber, such as beans, whole grains, and fresh fruits and vegetables. ?Limit foods that are high in fat and processed sugars, such as fried or sweet foods. General instructions If you were given a sedative during the procedure, it can affect you for several hours. Do not drive or operate machinery until your provider says that it is safe. If you were sent home with a soft tube (catheter) to help keep your urethra open, follow your provider's instructions about how and when to use it. Drink enough fluid to keep your pee pale yellow. Return to your normal activities as told by your provider. Ask your provider what activities are safe for you. Keep all follow-up visits. Your provider will check your healing and adjust your treatment plan as needed. Contact a health care provider if: Your pee is cloudy and smells bad. You develop new bleeding when you pee. You pass blood clots when you pee. You have pain that does not get better with medicine. You have a fever. Your genital area is swollen, bruised, or discolored. This includes: ?The penis, scrotum, and inner thighs for males. ?The outer genital organs (vulva) and inner thighs for females. Get help right away if: You develop new bleeding that does not stop. You cannot pee. Your catheter stops draining pee. You cannot pee after your catheter is removed. These symptoms may be an emergency. Get help right away. Call 911. Do not wait to see if the symptoms will go away. Do not drive yourself to the hospital. This information is not intended to replace advice given to you by your health care provider. Make sure you discuss any questions you have with your health care provider. Document Revised: 03/05/2023 Document Reviewed: 03/05/2023 Netscape Patient Education 2023 [employer] Funding. Follow Up Care 11/20/2023 10:20:00 With:CORNELIO GATES, Nasir York, URL Address: [facility] [address] [place] [address]- [phone] When: Unknown [facility] 02-15-2024 Note Patient Education Obstetrics and Gynecology Urinary Tract Infection, Adult A urinary tract infection (UTI) is an infection of any part of the urinary tract. The urinary tract includes the kidneys, ureters, bladder, and urethra. These organs make, store, and get rid of urine in the body. An upper UTI affects the ureters and kidneys. A lower UTI affects the bladder and urethra. What are the causes? Most urinary tract infections are caused by bacteria in your genital area around your urethra, where urine leaves your body. These bacteria grow and cause inflammation of your urinary tract. What increases the risk? You are more likely to develop this condition if: ? You have a urinary catheter that stays in place. ? You are not able to control when you urinate or have a bowel movement (incontinence). ? You are female and you: ? Use a spermicide or diaphragm for control. ? Have low estrogen levels. ? Are . ? You have certain genes that increase your risk. ? You are sexually active. ? You take antibiotic medicines. ? You have a condition that causes your flow of urine to slow down, such as: ? An enlarged prostate, if you are male. ? Blockage in your urethra. ? A kidney stone. ? A nerve condition that affects your bladder control (neurogenic bladder). ? Not getting enough to drink, or not urinating often. ? You have certain medical conditions, such as: ? Diabetes. ? A weak disease-fighting system (immunesystem). ? Sickle cell disease. ? Gout. ? Spinal cord injury. What are the signs or symptoms? Symptoms of this condition include: ? Needing to urinate right away (urgency). ? Frequent urination. This may include small amounts of urine each time you urinate. ? Pain or burning with urination. ? Blood in the urine. ? Urine that smells bad or unusual. ? Trouble urinating. ? Cloudy urine. ? Vaginal discharge, if you are female. ? Pain in the abdomen or the lower back. You may also have: ? Vomiting or a decreased appetite. ? Confusion. ? Irritability or tiredness. ? A fever or chills. ? Diarrhea. The first symptom in older adults may be confusion. In some cases, they may not have any symptoms until the infection has worsened. How is this diagnosed? This condition is diagnosed based on your medical history and a physical exam. You may also have other tests, including: ? Urine tests. ? Blood tests. ? Tests for STIs (sexually transmitted infections). If you have had more than one UTI, a cystoscopy or imaging studies may be done to determine the cause of the infections. How is this treated? Treatment for this condition includes: ? Antibiotic medicine. ? Kuoh-qmr-mjvimgu medicines to treat discomfort. ? Drinking enough water to stay hydrated. If you have frequent infections or have other conditions such as a kidney stone, you may need to see a health care provider who specializes in the urinary tract (urologist). In rare cases, urinary tract infections can cause sepsis. Sepsis is a life-threatening condition that occurs when the body responds to an infection. Sepsis is treated in the hospital with IV antibiotics, fluids, and other medicines. Follow these instructions at home: Medicines ? Take oigb-iel-mxvyqni and prescription medicines only as told by your health care provider. ? If you were prescribed an antibiotic medicine, take it as told by your health care provider. Do not stop using the antibiotic even if you start to feel better. General instructions ? Make sure you: ? Empty your bladder often and completely. Do not hold urine for long periods of time. ? Empty your bladder after sex. ? Wipe from front to back after urinating or having a bowel movement if you are female. Use each tissue only one time when you wipe. ? Drink enough fluid to keep your urine pale yellow. ? Keep all follow-up visits. This is important. Contact a health care provider if: ? Your symptoms do not get better after 1?2 days. ? Your symptoms go away and then return. Get help right away if: ? You have severe pain in your back or your lower abdomen. ? You have a fever or chills. ? You have nausea or vomiting. Summary ? A urinary tract infection (UTI) is an infection of any part of the urinary tract, which includes the kidneys, ureters, bladder, and urethra. ? Most urinary tract infections are caused by bacteria in your genital area. ? Treatment for this condition often includes antibiotic medicines. ? If you were prescribed an antibiotic medicine, take it as told by your health care provider. Do not stop using the antibiotic even if you start to feel better. ? Keep all follow-up visits. This is important. This information is not intended to replace advice given to you by your health care provider. Make sure you discuss any questions you have with your health care provider. Document Revised: 12/16 (more content not included)... [facility] 11-20-2023 Hospital Discharg e instructions Patient Education [...] including vitamins, herbs, eye drops, creams, and repd-osn-fmzxvas medicines. Any problems you or family members [...] provider tells you to take them. Taking rltp-pzj-ruibyvt medicines, vitamins, herbs, and supplements. General instructions [...] Follow these instructions at home: Medicines Take fxsq-uvt-fkapzly and prescription medicines only as told by [...] actions to prevent or treat constipation: ?Take jtyh-orj-cohpysm or prescription medicines. ?Eat foods that are [...] provider. Document Revised: 06/23/2019 Document Reviewed: 06/23/2019 Elsevier Patient Education 2022 [employer] Funding. Follow Up Care 09/07/2023 14:21:57 With:CORNELIO GATES, Nasir York, URL Address: [address] [place] [id number]- When: Unknown [facility] 11-20-2023 Note Patient Education Urology Urethral Dilation [...] including vitamins, herbs, eye drops, creams, and nmbm-bxo-zauxgut medicines. ? Any problems you or family [...] tells you to take them. ? Taking kdlp-urz-gqinhsm medicines, vitamins, herbs, and supplements. General instructions [...] these instructions at home: Medicines ? Take zsct-pfp-xxsmlsa and prescription medicines only as told by [...] to prevent or treat constipation: ? Take agrf-rtg-iodvawd or prescription medicines. ? Eat foods that [...] bleeding when you (more content not included)... [facility] 06-14-2023 Evaluation note Encounter Date Diagnosis Assessment Notes May, Primary hypertension (ICD-10 - I10) [facility] Other 11-20-2023 Evaluation note* Encounter Date Diagnosis [...] patient on monthly SBE and yearly mammograms. [facility] Other 11-03-2023 Evaluation note* Encounter Date Diagnosis [...] continue exercise to achieve/maintain a normal BMI. [facility] Other 06-01-2023 Evaluation note* Encounter Date Diagnosis Assessment Notes Treatment Notes Treatment Clinical Notes Oct, Primary hypertension (ICD-10 - I10) [facility] Other 05-31-2023 Evaluation note* Encounter Date Diagnosis [...] Vitamin D supplements. Recheck Vitamin D level [facility] Other 03-20-2023 Hospital Discharge instructions Patient Education [...] including vitamins, herbs, eye drops, creams, and krkc-cuz-otsnzay medicines. Any problems you or family members [...] provider tells you to take them. Taking hrhi-wnt-vhcwdyl medicines, vitamins, herbs, and supplements. General instructions [...] Follow these instructions at home: Medicines Take jihi-fpo-elibpsw and prescription medicines only as told by [...] actions to prevent or treat constipation: ?Take cmal-lni-pdhvwfu or prescription medicines. ?Eat foods that are [...] 06/06/2016 Document Revised: 06/23/2019 Document Reviewed: 06/23/2019 Netscape Patient Education 2019 [employer]. Follow Up Care 07/28/2022 15:53:37 With:CORNELIO GATES, Nasir York, URL Address: [facility] [address] , [place] [address]- When: Unknown [facility] [place] 03-06-2023 Hospital Discharge instructions Patient Education [...] including vitamins, herbs, eye drops, creams, and tvis-sjd-oveesba medicines. Any problems you or family members [...] provider tells you to take them. Taking ygqj-bvo-zolyxjj medicines, vitamins, herbs, and supplements. General instructions [...] Follow these instructions at home: Medicines Take aczn-zyr-ndsangk and prescription medicines only as told by [...] actions to prevent or treat constipation: ?Take yjup-tvd-xduksbp or prescription medicines. ?Eat foods that are [...] 06/06/2016 Document Revised: 06/23/2019 Document Reviewed: 06/23/2019 Netscape Patient Education 2019 [employer] Funding. Follow Up Care 04/28/2022 17:00:59 With:CORNELIO GATES, Nasir York, URL Address: [facility] [address] , [place] [address]- When: Unknown [facility] 12-05-2022 Hospital Discharge instructions Patient Education [...] including vitamins, herbs, eye drops, creams, and jcif-vuy-gohdbqx medicines. Any problems you or family members [...] provider tells you to take them. Taking smqy-pke-rbgftuw medicines, vitamins, herbs, and supplements. General instructions [...] Follow these instructions at home: Medicines Take trlo-oso-ziikmwm and prescription medicines only as told by [...] actions to prevent or treat constipation: ?Take aoda-sre-kyorfta or prescription medicines. ?Eat foods that are [...] 06/23/2019 Document Reviewed: 06/23/2019 Elsevier Patient Education 2020 [employer] Funding. Follow Up Care 02/03/2022 16:42:32 With:CORNELIO GATES, Nasir York, URL Address: [facility] [address] , [place] [address]- When: Unknown [facility] 11-16-2022 NoteOPERATIVE NOTE OPERATION DATE: 04/09/2022 [...] should be 10 years. CC: Rob Jiménez D.O.[facility]09-12-2022 Hospital Discharge instructions Patient Education 02/03/2022 16:35:49 [...] reconstructed. Follow these instructions at home: Take ixwd-spa-nthinyp and prescription medicines only as told by [...] 06/06/2016 Document Revised: 12/22/2018 Document Reviewed: 12/22/2018 Netscape Patient Education 2020 [employer] Funding. Follow Up Care 10/14/2021 16:58:02 With:CORNELIO GATES, Nasir York, URL Address: [facility] [address] [place] [phone] When:05/05/2022 Comments:[facility] 05-23-2022 Hospital Discharge instructions Patient Education [...] reconstructed. Follow these instructions at home: Take zccw-vmy-nlzymbe and prescription medicines only as told by [...] 06/06/2016 Document Revised: 12/22/2018 Document Reviewed: 12/22/2018 Netscape Patient Education 2020 [employer] Funding. Follow Up Care 09/18/2021 14:15:26 With:CORNELIO GATES, Nasir York, URL Address: [facility] [address] [place] [address]- When: Unknown [facility] [place] 04-27-2022 Hospital Discharge instructions Patient Education [...] including vitamins, herbs, eye drops, creams, and mxdn-omt-ezrhhjl medicines. Any problems you or family members [...] provider tells you to take them. Taking dsdv-fak-rsmlecg medicines, vitamins, herbs, and supplements. General instructions [...] Follow these instructions at home: Medicines Take empa-gje-rkzwqxk and prescription medicines only as told by [...] actions to prevent or treat constipation: ?Take iebo-exl-yvbxksv or prescription medicines. ?Eat foods that are [...] 06/06/2016 Document Revised: 06/23/2019 Document Reviewed: 06/23/2019 ElseJingit Patient Education 2020 [employer] Funding. Follow Up Care 08/29/2021 15:32:29 With:Nasir NANCE MD, URL Address: [facility] [address], [place] [address]- Business (1) When: Unknown [facility] Evaluation + Plan note Future Appointments Appointment Date:10/14/2021 03:00:00 PM Scheduled Provider:Nasir NANCE MD Location:[facility] Appointment Type:URO Office Visit [facility] Evaluation + Plan note Future Appointments Appointment Date:10/14/2021 03:00:00 PM Scheduled Provider:Nasir NANCE MD Location:[facility] Appointment Type:URO Office Visit Diagnostic Tests Pending * [facility] Appointment Date:02/03/2022 03:30:00 PM Scheduled Provider:Nasir NANCE MD Location:[facility] Appointment Type:URO Office Visit [facility] evaluation + Plan note Future Appointments Appointment Date:04/28/2022 03:30:00 PM Scheduled Provider:Nasir NANCE MD Location:[facility] Appointment Type:URO Office Visit [facility] evaluation + Plan note Future Appointments Appointment Date:07/28/2022 03:15:00 PM Scheduled Provider:Nasir NANCE MD Location:[facility] Appointment Type:URO Office Visit [facility] evaluation + Plan note Future Appointments Appointment Date:08/11/2022 11:45:00 AM Scheduled Provider:Nasir NANCE MD Location:[facility] Appointment Type:URO Office Visit [facility] evaluation + Plan note Future Appointments Appointment Date:11/17/2022 03:15:00 PM Scheduled Provider:Nasir NANCE MD Location:[facility] Appointment Type:URO Office Visit [facility] evaluation + Plan note Future Appointments Appointment Date:02/15/2024 02:45:00 PM Scheduled Provider:Nasir NANCE MD Location:[facility] Appointment Type:URO Office Visit [facility] evaluation + Plan note Future Appointments Appointment Date:05/16/2024 02:45:00 PM Scheduled Provider:Nasir NANCE MD Location:[facility] Appointment Type:URO Office Visit [facility] evaluation + Plan note Future Appointments Appointment Date:05/16/2024 02:45:00 PM Scheduled Provider:Nasir NANCE MD Location:[facility] Appointment Type:URO Office Visit Diagnostic Tests Pending * Urine Culture 02/15/24 [facility] evaluation noteNo [employer] Other evaluation note* Diagnosis Onset Date Resolution Status CORTNEY (generalized anxiety disorder) acute Hypothyroid acute IFG (impaired fasting glucose) acute Mucopurulent chronic bronchitis acute Nicotine dependence, cigarettes, uncomplicated acute Primary hypertension acute [facility] Work Phone: Evaluation note* Diagnosis Onset Date Resolution Status Cervical spondylosis acute Mucopurulent chronic bronchitis acute Neck pain acute Nicotine dependence, cigarettes, uncomplicated acute Peripheral neuropathy acute Primary hypertension acute [facility] Work Phone: History general Narrative - [...] EGD 2005 Hospitalization History SEE SURGICAL HX [facility] Other Hospital course Narrative No data available for this section [facility] Discharge instructions No data available for this section [facility] No data available for this section [facility] Summary Purpose Family History No Family History [...] and content) DATE CREATED AUTHOR 10/01/2022 [facility] DATE CREATED AUTHOR AUTHOR'S ORGANIZ ATION 02/17/2024 [facility] DATE CREATED AUTHOR AUTHOR'S ORGANIZ ATION 02/19/2024 [facility] DATE CREATED AUTHOR AUTHOR'S ORGANIZ ATION 02/21/2024 [facility] REASON FOR VISIT (unrecogniz ed section and content) weight lossRe-Send RefillUpd ate Demographics - Personal InfoSinuses- [phone] InformationLab/mamm resultsNo InformationNo Information Goals (unrecognized section [...] BE BASED ON THE PRIMARY CLINICAL RECORDS. Funding [facility]. provides no warranty or guarantee of the accuracy or completeness of information in this document.
== END 2024-05-09 07:57 | disposition home or self-care (01) ==
LOC: MAMMO 07:56
PROVIDERS: PCP Internal Medicine; Visit Provider Internal Medicine
DX: Z12.31 Encounter for screening mammogram for malignant neoplasm of breast (principal); F17.210 Nicotine dependence, cigarettes, uncomplicated; Z80.3 Family history of malignant neoplasm of breast; Z80.41 Family history of malignant neoplasm of ovary; Z80.1 Family history of malignant neoplasm of trachea, bronchus and lung
CPT/HCPCS: 71271; 77063; 77067